=== PATIENT | male | born 1945 | race Caucasian/White ===

== ENCOUNTER 2020-03-24 08:42 | Outpatient (REF) | payer MEDICARE, SELFPAY ==
[2020-03-24 09:55] LABS: Anion Gap 13 (12-20); Blood Urea Nitrogen 37 mg/dL (9-16); Calcium 8.7 mg/dL (8.4-10.2); Carbon Dioxide 24 mmol/L (22-29); Chloride 108 mmol/L (96-108); Estimated Glomerular Filt Rate 41; Potassium 4.8 mmol/l (3.3-5.1); Sodium 140 mmol/L (135-145)
[2020-03-24 11:07] LABS: Creatinine Urine 50.44 mg/dL; Protein/Creatinine Ratio, Ur 3.33 (<0.2); Total Protein Urine Random 168 mg/dL (<12)
== END 2020-03-24 08:43 | disposition home or self-care (01) ==
LOC: HO.LAB 08:42
PROVIDERS: PCP Internal Medicine; Visit Provider Internal Medicine Hypertension Specialist
DX: E11.22 Type 2 diabetes mellitus with diabetic chronic kidney disease (principal); N18.2 Chronic kidney disease, stage 2 (mild)
CPT/HCPCS: 80051; 82310; 82565; 84156; 84520

== ENCOUNTER 2020-04-05 07:01 | Outpatient (REF) | payer MEDICARE, SELFPAY | END 2020-04-05 07:02 | disposition home or self-care (01) | LOC: HO.LAB 07:01 | PROVIDERS: Visit Provider Internal Medicine | DX: Z20.828 Contact with and (suspected) exposure to other viral communicable diseases (principal) | CPT/HCPCS: C9803; U0003 ==

== ENCOUNTER 2020-04-21 08:06 | Outpatient (REF) | payer MEDICARE, SELFPAY ==
[2020-04-21 09:25] LABS: Cholesterol 171 mg/dL; Glucose Fasting 102 mg/dL (60-99); HDL Cholesterol 24 mg/dL; LDL Cholesterol Calculated 102 mg/dl; Triglycerides 226 mg/dL
[2020-04-21 10:24] LABS: Estimated Average Glucose 126 mg/dL
== END 2020-04-21 08:07 | disposition home or self-care (01) ==
LOC: HO.LAB 08:06
PROVIDERS: PCP Internal Medicine; Visit Provider Internal Medicine
DX: E11.9 Type 2 diabetes mellitus without complications (principal)
CPT/HCPCS: 80061; 82947; 83036

== ENCOUNTER 2020-04-25 14:49 | Outpatient (REF) | payer MEDICARE, SELFPAY | END 2020-04-25 14:50 | disposition home or self-care (01) | LOC: HO.LAB 14:49 | PROVIDERS: PCP Internal Medicine; Visit Provider Internal Medicine | DX: Z20.828 Contact with and (suspected) exposure to other viral communicable diseases (principal) | CPT/HCPCS: C9803; U0003 ==

== ENCOUNTER 2020-05-31 09:26 | Outpatient (REF) | payer MEDICARE, SELFPAY ==
[2020-05-31 11:15] LABS: Alanine Aminotransferase 12 U/L (0-40); Anion Gap 14 (12-20); Aspartate Amino Transferase 16 U/L (5-37); Blood Urea Nitrogen 51 mg/dL (9-16); Calcium 9.1 mg/dL (8.4-10.2); Carbon Dioxide 23 mmol/L (22-29); Chloride 108 mmol/L (96-108); Estimated Glomerular Filt Rate 38; Potassium 4.9 mmol/l (3.3-5.1); Rheumatoid Factor < 15.0 IU/mL (<15.0); Sodium 140 mmol/L (135-145)
[2020-05-31 11:55] LABS: Protein/Creatinine Ratio, Ur 3.49 (<0.2); Total Protein Urine Random 201 mg/dL (<12)
[2020-06-01 09:19] LABS: HBS Num1 0.92 mIU/mL (0-7.99); HBsAGNum1 0.22 S/CO (0.00-0.99); Hepatitis B Surface Antigen Negative (Negative); ~HepC Num1 0.11 S/CO (0.00-0.79); ~Hepatitis B Surface Antibody NONREACTIVE (Nonreactive); ~Hepatitis C Antibody Nonreactive (Nonreactive)
[2020-06-01 11:57] LABS: IgA 334 mg/dL (70-320); IgG 1163 mg/dL (600-1540); IgM 123 mg/dL (50-300)
[2020-06-01 13:28] LABS: Anti DNA DS Antibody 3 IU/mL; Anti Glomerular Basement Memb <1.0 AI; Complement C3 128 mg/dL (82-185)
[2020-06-01 15:02] LABS: Neutrophil Cyto Ab Screen NEGATIVE (NEGATIVE)
[2020-06-01 18:11] LABS: IgA 337 mg/dL (70-320); IgG 1243 mg/dL (600-1540); IgM 123 mg/dL (50-300)
== END 2020-05-31 09:27 | disposition home or self-care (01) ==
LOC: HO.LAB 09:26
PROVIDERS: PCP Internal Medicine; Visit Provider Internal Medicine Hypertension Specialist
DX: E11.22 Type 2 diabetes mellitus with diabetic chronic kidney disease (principal); N18.30 Chronic kidney disease, stage 3 unspecified; Z79.899 Other long term (current) drug therapy
CPT/HCPCS: 36415; 80051; 82310; 82565; 82784; 83520; 84156; 84450; 84460; 84520; 86021; 86160; 86225; 86334; 86335; 86431; 86706; 86803; 87340

== ENCOUNTER 2020-07-16 16:01 | Emergency (ER) | payer MEDICARE, SELFPAY ==
[2020-07-16] VITALS (10 sets, daily range): BP systolic 100–145; BP diastolic 48–72; PULSE 70–120; RESP 18–27; TEMP 37.2–39.3; O2SAT 96–98; BMI 28.5
--- NOTE | ~2020-07-16 | XR_ITS ---
EXAMINATION: XR CHEST CLINICAL INFORMATION: Fever COMPARISON: 09/27/2011 TECHNIQUE: Frontal view of the chest was obtained. FINDINGS: No significant abnormality is noted involving the heart, lungs, mediastinum, bony thorax or soft tissues. Heart size remains at the upper limits of normal. XR/XR chest 1V IMPRESSION: No acute intrathoracic disease
--- NOTE | 2020-07-16 16:20 | PC.NURSE ---
on arrival pt noted to have fever, he states he has an infected tooth and states he has an appointment to have it removed. denies cough, denies nausea or vomiting.
--- NOTE | 2020-07-16 16:26 | ED.DIZZY ---
HPI - Dizziness General Chief Complaint: Syncope Stated Complaint: dyzness Time Seen by Provider: 07/16/20 16:26 Source: patient Mode of arrival: ambulatory Limitations: no limitations History of Present Illness HPI Narrative: Patient history of hypertension diabetes off and on dizziness in the past comes here for sudden onset of dizziness just prior to arrival patient was lying on the cot stood up felt dizzy sat down no loss of consciousness lasted only for few seconds on arrival patient noticed to have temperature of 102.7 degrees rectally patient denied any chills or cough as the lower right premolar tenderness in the jaw area with slight swelling patient denies any headache no chest pain no palpitation no nausea no vomiting at this time patient is feeling better no dizziness at this time no focal weakness MD elicited complaint: dizziness Onset (ago): hour(s) Timing: sudden onset Severity: mild Description: sense of movement History of similar symptoms: Yes Exacerbating factors: change in body position Relieving factors: nothing Associated symptoms: fever Related Data Home Medications Medication Instructions Recorded Confirmed aspirin 81 mg tablet,delayed 81 mg PO DAILY 06/08/20 06/08/20 release carvedilol 6.25 mg tablet 6.25 mg PO BID 06/08/20 06/08/20 Previous Rx's Medication Instructions Recorded metformin 500 mg tablet 500 mg PO BID #180 tab 04/20/20 amoxicillin-pot clavulanate 1 tab PO BID #20 tab 07/16/20 [Augmentin] Allergies Allergy/AdvReac Type Severity Reaction Status Date / Time No Known Allergies Allergy Mild NONE Verified 06/08/20 08:31 Review of Systems Review of Systems: Constitutional : No Weight loss, + Fever, No Chills ENT/Mouth : No sore throat, No Rhinorrhea Eyes: No Eye Pain, No Swelling Cardiovascular : No Chest Pain, no palpitations Respiratory : No Cough, No Sputum, no shortness of breath Gastrointestinal : no Nausea, No Vomiting, No Diarrhea, No abdominal Pain, no black stools Genitourinary : No Dysuria, No Urinary Frequency Musculoskeletal : No joint pain, No Myalgias, No Joint Swelling Skin : No Skin Lesions, No rash Neuro : No Weakness, No Numbness, + Dizziness, No Headache Psych : No Anxiety/Panic, No Depression Heme/Lymph: No Bruising, No Lymphadenopathy Endocrine : No Polyuria, No Polydipsia All other systems reviewed and are negative [facility] Past Medical History Medical History Diabetes mellitus Surgical History History of coronary artery stent placement History of drainage of abscess Family History Family History Father Lung cancer Mother Cancer Social History Social History Alcohol intake: current Alcohol intake frequency: holidays/special occasions only Smoking Status: Former smoker Advance Directives: No Advance Directives Information Provided: Yes Physical Exam Vital Signs: Vital Signs: Last Vital Signs Temp 98.9 F 07/16/20 18:36 Pulse 82 07/16/20 19:38 Resp 22 H 07/16/20 18:36 BP 136/65 07/16/20 19:38 Pulse Ox 96 07/16/20 16:39 Body Mass Index 28.5 Appearance: Alert. Oriented X3. No acute distress. Eyes: Pupils equal, round and reactive to light. ENT: Pharynx normal. Slight lower gum swelling at the location of right lower premolar edentulous no fluctuance no sinus tenderness Neck: Normal inspection. Neck supple. No lymphadenopathy no carotid bruit CVS: Normal heart rate and rhythm. Pulses normal. Respiratory: No respiratory distress. Breath sounds normal. Abdomen: Soft and nontender. Bowel sounds are present, no mass palpable, no CVA tenderness Skin: Skin warm and dry. Normal skin color. Normal skin turgor. Extremities: No lower extremity edema. No calf tenderness Neuro: Oriented X 3. No motor deficit. No sensory deficit. No nystagmus no cerebellar sign Course Reevaluation(s) Reevaluation #1: Patient afebrile now repeat orthostatics normal ambulatory in the ER feeling much better will discharge patient home on Augmentin Time: 19:37 MDM - Dizziness MDM Narrative Medical decision making narrative: Case discussed with patient daughter according to her he was not feeling good since morning and later on when he stood up from the couch he felt lightheaded and fell/sat down onto the couch. Workup is negative for any sepsis source of infection seems to be only right lower jaw. Will give him Zosyn and discharge him on Augmentin after ambulating Medical Records Attestation: I reviewed the patient's medical records. Lab Data Attestation: I reviewed the patient's lab results. Result diagrams: 07/16/20 16:53 07/16/20 16:53 Labs: Lab Results 07/16/20 07/16/20 07/16/20 Range/Units 16:53 16:53 16:53 WBC 9.1 (4.8-10.8) X10*3/uL RBC 4.37 L (4.60-5.80) X10*6/uL Hgb 11.6 L (14.0-18.0) g/dl Hct 36.0 L (42-52) % MCV 82.4 (80-98) fL MCH 26.5 L (27.0-33.0) pg MCHC 32.2 (31.0-36.0) g/dl RDW 14.3 (11.0-16.0) % Plt Count 152 L (160-400) X10*3/uL MPV 9.9 (9.4-12.4) fL Immature Gran % (Auto) 0.3 (0.0-0.4) % Neut % (Auto) 86.1 H (45-73) % Lymph % (Auto) 6.1 L (20-40) % Dickson % (Auto) 7.2 (2-11) % Eos % (Auto) 0.1 (0-4) % Baso % (Auto) 0.2 (0-2) % Lymph # (Auto) 0.6 L (1.2-4.9) X10*3/uL Dickson # (Auto) 0.7 (0.1-1.2) X10*3/uL Eos # (Auto) 0.0 (0.0-0.4) X10*3/uL Baso # (Auto) 0.0 (0.0-0.2) X10*3/uL Abs Immat Gran (auto) 0.03 (0.00-0.03) X10*3/uL Absolute Neuts (auto) 7.9 (2.0-8.3) X10*3/uL Absolute Nucleated RBC 0.000 (0.0-0.012) X10*3/uL Nucleated RBC % (auto) 0.0 (0.0-0.2) /100WBC Smear Tech's Comments VERIFIED PT (10.8-13.0) SEC INR (0.9-1.1) APTT (24.1-38.0) SEC Sodium 140 (135-145) mmol/L Potassium 4.5 (3.3-5.1) mmol/L Chloride 110 H (96-108) mmol/L Carbon Dioxide 20 L (22-29) mmol/L Anion Gap 15 (12-20) BUN 41 H (9-16) mg/dL Creatinine 2.04 H (0.5-1.4) mg/dL Estim Creat Clear Calc 31.6 Estimated GFR 32 Random Glucose 127 H (60-115) mg/dL Lactic Acid 1.0 (0.5-2.0) mmol/L Calcium 8.4 D (8.4-10.2) mg/dL Total Bilirubin 0.8 (0.0-1.0) mg/dL Direct Bilirubin 0.3 (0.0-0.5) mg/dL AST 15 (5-37) U/L ALT 10 (0-40) U/L Alkaline Phosphatase 84 (39-117) U/L Troponin I High Sens (<3.5-35.0) ng/L Total Protein 6.8 (6.5-8.0) g/dL Albumin 3.7 (3.5-5.0) g/dL Urine Color Urine Appearance Urine pH (5.0-8.0) Ur Specific [place] (1.005-1.025) Urine Protein (NEG-TRACE) MG/DL Urine Glucose (UA) (NEG) MG/DL Urine Ketones (NEG) MG/DL Urine Blood (NEG) Urine Nitrite (NEG) Ur Leukocyte Esterase (NEG) Urine RBC (0) /HPF Urine WBC (0-4) /HPF Ur Squamous Epith Cells /LPF Urine Bacteria /LPF Hyaline Casts /LPF Granular Casts /LPF Urine Mucus /LPF COVID-19 (ANDI) (Negative) COVID-19 Clin Com 07/16/20 07/16/20 07/16/20 Range/Units 16:53 16:53 16:53 WBC (4.8-10.8) X10*3/uL RBC (4.60-5.80) X10*6/uL Hgb (14.0-18.0) g/dl Hct (42-52) % MCV (80-98) fL MCH (27.0-33.0) pg MCHC (31.0-36.0) g/dl RDW (11.0-16.0) % Plt Count (160-400) X10*3/uL MPV (9.4-12.4) fL Immature Gran % (Auto) (0.0-0.4) % Neut % (Auto) (45-73) % Lymph % (Auto) (20-40) % Dickson % (Auto) (2-11) % Eos % (Auto) (0-4) % Baso % (Auto) (0-2) % Lymph # (Auto) (1.2-4.9) X10*3/uL Dickson # (Auto) (0.1-1.2) X10*3/uL Eos # (Auto) (0.0-0.4) X10*3/uL Baso # (Auto) (0.0-0.2) X10*3/uL Abs Immat Gran (auto) (0.00-0.03) X10*3/uL Absolute Neuts (auto) (2.0-8.3) X10*3/uL Absolute Nucleated RBC (0.0-0.012) X10*3/uL Nucleated RBC % (auto) (0.0-0.2) /100WBC Smear Tech's Comments PT 13.2 H (10.8-13.0) SEC INR 1.1 (0.9-1.1) APTT 31.1 (24.1-38.0) SEC Sodium (135-145) mmol/L Potassium (3.3-5.1) mmol/L Chloride (96-108) mmol/L Carbon Dioxide (22-29) mmol/L Anion Gap (12-20) BUN (9-16) mg/dL Creatinine (0.5-1.4) mg/dL Estim Creat Clear Calc Estimated GFR Random Glucose (60-115) mg/dL Lactic Acid (0.5-2.0) mmol/L Calcium (8.4-10.2) mg/dL Total Bilirubin (0.0-1.0) mg/dL Direct Bilirubin (0.0-0.5) mg/dL AST (5-37) U/L ALT (0-40) U/L Alkaline Phosphatase (39-117) U/L Troponin I High Sens 39.8 H (<3.5-35.0) ng/L Total Protein (6.5-8.0) g/dL Albumin (3.5-5.0) g/dL Urine Color Urine Appearance Urine pH (5.0-8.0) Ur Specific [place] (1.005-1.025) Urine Protein (NEG-TRACE) MG/DL Urine Glucose (UA) (NEG) MG/DL Urine Ketones (NEG) MG/DL Urine Blood (NEG) Urine Nitrite (NEG) Ur Leukocyte Esterase (NEG) Urine RBC (0) /HPF Urine WBC (0-4) /HPF Ur Squamous Epith Cells /LPF Urine Bacteria /LPF Hyaline Casts /LPF Granular Casts /LPF Urine Mucus /LPF COVID-19 (ANDI) Negative (Negative) COVID-19 Clin Com See Note 07/16/20 Range/Units 18:35 WBC (4.8-10.8) X10*3/uL RBC (4.60-5.80) X10*6/uL Hgb (14.0-18.0) g/dl Hct (42-52) % MCV (80-98) fL MCH (27.0-33.0) pg MCHC (31.0-36.0) g/dl RDW (11.0-16.0) % Plt Count (160-400) X10*3/uL MPV (9.4-12.4) fL Immature Gran % (Auto) (0.0-0.4) % Neut % (Auto) (45-73) % Lymph % (Auto) (20-40) % Dickson % (Auto) (2-11) % Eos % (Auto) (0-4) % Baso % (Auto) (0-2) % Lymph # (Auto) (1.2-4.9) X10*3/uL Dickson # (Auto) (0.1-1.2) X10*3/uL Eos # (Auto) (0.0-0.4) X10*3/uL Baso # (Auto) (0.0-0.2) X10*3/uL Abs Immat Gran (auto) (0.00-0.03) X10*3/uL Absolute Neuts (auto) (2.0-8.3) X10*3/uL Absolute Nucleated RBC (0.0-0.012) X10*3/uL Nucleated RBC % (auto) (0.0-0.2) /100WBC Smear Tech's Comments PT (10.8-13.0) SEC INR (0.9-1.1) APTT (24.1-38.0) SEC Sodium (135-145) mmol/L Potassium (3.3-5.1) mmol/L Chloride (96-108) mmol/L Carbon Dioxide (22-29) mmol/L Anion Gap (12-20) BUN (9-16) mg/dL Creatinine (0.5-1.4) mg/dL Estim Creat Clear Calc Estimated GFR Random Glucose (60-115) mg/dL Lactic Acid (0.5-2.0) mmol/L Calcium (8.4-10.2) mg/dL Total Bilirubin (0.0-1.0) mg/dL Direct Bilirubin (0.0-0.5) mg/dL AST (5-37) U/L ALT (0-40) U/L Alkaline Phosphatase (39-117) U/L Troponin I High Sens (<3.5-35.0) ng/L Total Protein (6.5-8.0) g/dL Albumin (3.5-5.0) g/dL Urine Color YELLOW Urine Appearance CLEAR Urine pH 5.5 (5.0-8.0) Ur Specific [place] 1.025 (1.005-1.025) Urine Protein 2+ H (NEG-TRACE) MG/DL Urine Glucose (UA) NEG (NEG) MG/DL Urine Ketones NEG (NEG) MG/DL Urine Blood TRACE (NEG) Urine Nitrite NEG (NEG) Ur Leukocyte Esterase NEG (NEG) Urine RBC 0-2 (0) /HPF Urine WBC 1-4 (0-4) /HPF Ur Squamous Epith Cells 1+ /LPF Urine Bacteria TRACE /LPF Hyaline Casts 0-2 /LPF Granular Casts 1-4 /LPF Urine Mucus TRACE /LPF COVID-19 (ANDI) (Negative) COVID-19 Clin Com ECG Data Attestation: I personally reviewed and interpreted this ECG as follows: Interpretation: Normal sinus rhythm heart rate 96 beats per minute occasional unifocal PVCs left axis deviation nonspecific T-wave changes normal intervals impression no acute ischemia Discharge Plan Discharge Clinical Impression: Abscess, dental, Weakness Patient Disposition: Home, Self-Care Instructions: Dental Abscess (ED) Additional Instructions: Take antibiotics as advised , drink plenty of fluids Follow up with dentist Report to the ER if not feeling good Prescriptions: New amoxicillin-pot clavulanate [Augmentin] 875-125 mg tablet 1 tab PO BID Qty: 20 RF: 0 No Action metformin 500 mg tablet 500 mg PO BID Qty: 180 RF: 8 carvedilol 6.25 mg tablet 6.25 mg PO BID RF: 0 aspirin [Adult Low Dose Aspirin] 81 mg tablet,delayed release (DR/EC) 81 mg PO DAILY RF: 0
--- NOTE | 2020-07-16 16:49 | ECG_ITS ---
Test Reason : SYNCOPE Blood Pressure : / mmHG Vent. Rate : 096 BPM Atrial Rate : 096 BPM P-R Int : 240 ms QRS Dur : 106 ms QT Int : 356 ms P-R-T Axes : 021 -40 089 degrees QTc Int : 449 ms Sinus rhythm with 1st degree A-V block with occasional Premature ventricular complexes Left axis deviation T wave abnormality, consider lateral ischemia Abnormal ECG When compared with ECG of 04-JAN-2015 12:32, Premature ventricular complexes are now Present Vent. rate has increased BY 61 BPM QT has lengthened Referred By: Ke Trotter Electronically Signed By:MACKENZIE MICHAEL
[2020-07-16 17:02] LABS: Basophils Percent Auto 0.2 % (0-2); Eosinophils Percent Auto 0.1 % (0-4); Hemoglobin 11.6 g/dl (14.0-18.0); Imm Gran Abs Auto 0.03 X10*3/uL (0.00-0.03); Imm Gran Pct Auto 0.3 % (0.0-0.4); Lymphocytes Absolute Auto 0.6 X10*3/uL (1.2-4.9); Lymphocytes Percent Auto 6.1 % (20-40); MANUAL DIFF FLAG SCAN; Mean Corpuscular HGB Conc 32.2 g/dl (31.0-36.0); Mean Corpuscular Hemoglobin 26.5 pg (27.0-33.0); Mean Corpuscular Volume 82.4 fL (80-98); Mean Platelet Volume 9.9 fL (9.4-12.4); Monocytes Absolute Auto 0.7 X10*3/uL (0.1-1.2); Monocytes Percent Auto 7.2 % (2-11); Neutrophils Absolute Auto 7.9 X10*3/uL (2.0-8.3); Neutrophils Percent Auto 86.1 % (45-73); Platelet Count 152 X10*3/uL (160-400); Red Blood Count 4.37 X10*6/uL (4.60-5.80); Red Cell Distribution Width 14.3 % (11.0-16.0); SCAN SMEAR FLAG 1; White Blood Count 9.1 X10*3/uL (4.8-10.8)
[2020-07-16 17:11] LABS: INTERNATIONAL NORM RATIO 1.1 (0.9-1.1); Prothrombin Time 13.2 SEC (10.8-13.0)
[2020-07-16] MEDS: 0.9 % Sodium Chloride 1,000 ML 999 ML IVCONT (17:11)
[2020-07-16 17:14] LABS: Partial Thromboplastin Time 31.1 SEC (24.1-38.0)
[2020-07-16 17:19] LABS: COVID-19 Test Negative (Negative); IDNOW Serial# 9DD0AD1C
[2020-07-16] MEDS: Acetaminophen 325 MG TABLET 650 MG PO (17:23)
[2020-07-16 17:24] LABS: Alanine Aminotransferase 10 U/L (0-40); Albumin Level 3.7 g/dL (3.5-5.0); Alkaline Phosphatase 84 U/L (39-117); Anion Gap 15 (12-20); Aspartate Amino Transferase 15 U/L (5-37); Bilirubin Direct 0.3 mg/dL (0.0-0.5); Bilirubin Total 0.8 mg/dL (0.0-1.0); Blood Urea Nitrogen 41 mg/dL (9-16); Calcium 8.4 mg/dL (8.4-10.2); Carbon Dioxide 20 mmol/L (22-29); Chloride 110 mmol/L (96-108); Creatinine Clr Calc Pharmacy 31.6; Estimated Glomerular Filt Rate 32; Glucose Random 127 mg/dL (60-115); Potassium 4.5 mmol/L (3.3-5.1); SLIDE REVIEW VERIFIED; Sodium 140 mmol/L (135-145); Total Protein 6.8 g/dL (6.5-8.0)
[2020-07-16 17:32] LABS: Troponin-I High Sensitivity 39.8 ng/L (<3.5-35.0)
[2020-07-16 18:45] LABS: Appearance Urine CLEAR; Color Urine YELLOW; Glucose Urine UA NEG (NEG); Leukocyte Esterase Urine NEG (NEG); Nitrite Urine NEG (NEG); PH 5.5 (5.0-8.0); Specific Gravity - Urine 1.025 (1.005-1.025); Urine Blood TRACE (NEG); Urine Ketones NEG (NEG); Urine Protein 2+ MG/DL (NEG-TRACE)
[2020-07-16 19:08] LABS: UACC CULT YES
[2020-07-16 19:09] LABS: Bacteria Urine TRACE /LPF; Hyaline Casts Urine 0-2 /LPF; Mucus Urine TRACE /LPF; RBC Urine 0-2 /HPF (0); Squamous Epithelial Cell Urine 1+ /LPF
[2020-07-16] MEDS: Piperacillin Sodium/Tazobactam 3.375 GM in 0.9 % Sodium Chloride 50 ML IV (19:58)
== END 2020-07-16 20:43 | disposition home or self-care (01) ==
PROVIDERS: Emergency Provider Internal Medicine; PCP Internal Medicine
DX: K04.7 Periapical abscess without sinus (principal); R53.1 Weakness; Z20.822 Contact with and (suspected) exposure to COVID-19; E11.9 Type 2 diabetes mellitus without complications
CPT/HCPCS: 36415; 71045; 80048; 80076; 81001; 83605; 84484; 85025; 85610; 85730; 87040; 87086; 87635; 93005; 96361; 96365; 99284; J2543

== ENCOUNTER 2020-08-09 08:14 | Outpatient (REF) | payer MEDICARE, SELFPAY ==
[2020-08-09 09:57] LABS: Estimated Average Glucose 108 mg/dL; Hemoglobin A1c % 5.4 %
[2020-08-09 10:09] LABS: Cholesterol 196 mg/dL; HDL Cholesterol 36 mg/dL; LDL Cholesterol Calculated 125 mg/dl; Triglycerides 176 mg/dL
== END 2020-08-09 08:15 | disposition home or self-care (01) ==
LOC: HO.LAB 08:14
PROVIDERS: PCP Internal Medicine; Visit Provider Internal Medicine
DX: E11.9 Type 2 diabetes mellitus without complications (principal)
CPT/HCPCS: 36415; 80061; 83036

== ENCOUNTER 2021-04-04 10:02 | Outpatient (REF) | payer MEDICARE, SELFPAY ==
[2021-04-04 10:46] LABS: Estimated Average Glucose 114 mg/dL; Hemoglobin A1C 117.1894 umol/L; Hemoglobin A1c % 5.6 %
[2021-04-04 10:59] LABS: Alanine Aminotransferase 13 U/L (0-40); Alkaline Phosphatase 80 U/L (39-117); Anion Gap 13 (12-20); Aspartate Amino Transferase 18 U/L (5-37); Bilirubin Total 0.7 mg/dL (0.0-1.0); Blood Urea Nitrogen 43 mg/dL (9-16); Calcium 9.8 mg/dL (8.4-10.2); Carbon Dioxide 24 mmol/L (22-29); Chloride 110 mmol/L (96-108); Estimated Glomerular Filt Rate 25; Glucose Random 96 mg/dL (60-115); Potassium 5.6 mmol/L (3.3-5.1); Sodium 141 mmol/L (135-145); Total Protein 7.2 g/dL (6.5-8.0)
[2021-04-04 11:20] LABS: Prostate Specific Antigen 1.63 ng/mL (<0.05-4.0)
== END 2021-04-04 10:03 | disposition home or self-care (01) ==
LOC: HO.LAB 10:02
PROVIDERS: PCP Internal Medicine; Visit Provider Nurse Practitioner Family
DX: Z12.5 Encounter for screening for malignant neoplasm of prostate (principal); E11.9 Type 2 diabetes mellitus without complications; I10 Essential (primary) hypertension
CPT/HCPCS: 36415; 80053; 83036; 84153

== ENCOUNTER 2021-06-28 08:33 | Outpatient (REF) | payer MEDICARE, SELFPAY ==
[2021-06-28 08:52] LABS: MANUAL DIFF FLAG NO
[2021-06-28 09:09] LABS: Basophils Percent Auto 0.6 % (0-2); Eosinophils Absolute Auto 0.3 X10*3/uL (0.0-0.4); Eosinophils Percent Auto 3.9 % (0-4); Hematocrit 36.5 % (42.0-52.0); Hemoglobin 11.5 g/dl (14.0-18.0); Imm Gran Abs Auto 0.03 X10*3/uL (0.00-0.03); Imm Gran Pct Auto 0.4 % (0.0-0.4); Lymphocytes Absolute Auto 2.2 X10*3/uL (1.2-4.9); Lymphocytes Percent Auto 31.9 % (20-40); Mean Corpuscular HGB Conc 31.5 g/dl (31.0-36.0); Mean Corpuscular Volume 85.7 fL (80.0-98.0); Mean Platelet Volume 9.3 fL (9.4-12.4); Monocytes Absolute Auto 0.6 X10*3/uL (0.1-1.2); Monocytes Percent Auto 8.6 % (2-11); Neutrophils Absolute Auto 3.7 x10*3/uL (2.0-8.3); Neutrophils Percent Auto 54.6 % (45-73); Platelet Count 161 X10*3/uL (160-400); Red Blood Count 4.26 X10*6/uL (4.60-5.80); Red Cell Distribution Width 13.5 % (11.0-16.0); White Blood Count 6.8 X10*3/uL (4.8-10.8)
[2021-06-28 09:24] LABS: Estimated Average Glucose 114 mg/dL; Hemoglobin A1c % 5.6 %
[2021-06-28 09:49] LABS: Alanine Aminotransferase 11 U/L (0-40); Albumin Level 3.8 g/dL (3.5-5.0); Alkaline Phosphatase 78 U/L (39-117); Anion Gap 13 (12-20); Aspartate Amino Transferase 17 U/L (5-37); Bilirubin Total 0.6 mg/dL (0.0-1.0); Blood Urea Nitrogen 53 mg/dL (9-16); Calcium 9.3 mg/dL (8.4-10.2); Carbon Dioxide 24 mmol/L (22-29); Chloride 108 mmol/L (96-108); Cholesterol 244 mg/dL; Estimated Glomerular Filt Rate 23; Glucose Fasting 97 mg/dL (60-99); HDL Cholesterol 36 mg/dL; LDL Cholesterol Calculated 164 mg/dl; Potassium 5.1 mmol/L (3.3-5.1); Sodium 140 mmol/L (135-145); Total Protein 6.9 g/dL (6.5-8.0); Triglycerides 220 mg/dL
[2021-06-28 11:18] LABS: Creatinine Urine 50.62 mg/dL
== END 2021-06-28 08:34 | disposition home or self-care (01) ==
LOC: HO.LAB 08:33
PROVIDERS: PCP Internal Medicine; Visit Provider Internal Medicine
DX: Z00.00 Encounter for general adult medical examination without abnormal findings (principal); E11.9 Type 2 diabetes mellitus without complications
CPT/HCPCS: 36415; 80053; 80061; 82043; 83036; 85025

== ENCOUNTER 2021-09-20 08:27 | Outpatient (REF) | payer MEDICARE, SELFPAY ==
[2021-09-20 10:03] LABS: Cholesterol 210 mg/dL; Glucose Fasting 93 mg/dL (60-99); HDL Cholesterol 35 mg/dL; LDL Cholesterol Calculated 142 mg/dl; Triglycerides 166 mg/dL
[2021-09-20 10:11] LABS: Estimated Average Glucose 111 mg/dL; Hemoglobin A1c % 5.5 %
== END 2021-09-20 08:28 | disposition home or self-care (01) ==
LOC: HO.LAB 08:27
PROVIDERS: PCP Internal Medicine; Visit Provider Internal Medicine
DX: Z00.00 Encounter for general adult medical examination without abnormal findings (principal); E11.65 Type 2 diabetes mellitus with hyperglycemia
CPT/HCPCS: 36415; 80061; 82947; 83036

== ENCOUNTER 2021-12-26 08:17 | Outpatient (REF) | payer MEDICARE, SELFPAY ==
[2021-12-26 08:28] LABS: MANUAL DIFF FLAG NO
[2021-12-26 08:43] LABS: Basophils Percent Auto 0.4 % (0-2); Eosinophils Absolute Auto 0.3 X10*3/uL (0.0-0.4); Eosinophils Percent Auto 3.4 % (0-4); Hematocrit 33.8 % (42.0-52.0); Hemoglobin 10.7 g/dl (14.0-18.0); Imm Gran Abs Auto 0.04 X10*3/uL (0.00-0.03); Imm Gran Pct Auto 0.4 % (0.0-0.4); Lymphocytes Percent Auto 21.4 % (20-40); Mean Corpuscular HGB Conc 31.7 g/dl (31.0-36.0); Mean Corpuscular Hemoglobin 27.1 pg (27.0-33.0); Mean Corpuscular Volume 85.6 fL (80.0-98.0); Mean Platelet Volume 9.5 fL (9.4-12.4); Monocytes Absolute Auto 0.6 X10*3/uL (0.1-1.2); Monocytes Percent Auto 6.9 % (2-11); Neutrophils Absolute Auto 6.3 x10*3/uL (2.0-8.3); Neutrophils Percent Auto 67.5 % (45-73); Platelet Count 176 X10*3/uL (160-400); Red Blood Count 3.95 X10*6/uL (4.60-5.80); Red Cell Distribution Width 13.6 % (11.0-16.0); White Blood Count 9.3 X10*3/uL (4.8-10.8)
[2021-12-26 08:53] LABS: Estimated Average Glucose 114 mg/dL; Hemoglobin A1c % 5.6 %
[2021-12-26 09:08] LABS: Alanine Aminotransferase 11 U/L (0-40); Albumin Level 3.8 g/dL (3.5-5.0); Alkaline Phosphatase 89 U/L (39-117); Anion Gap 17 (12-20); Aspartate Amino Transferase 16 U/L (5-37); Bilirubin Total 0.6 mg/dL (0.0-1.0); Blood Urea Nitrogen 61 mg/dL (9-16); Calcium 8.9 mg/dL (8.4-10.2); Carbon Dioxide 19 mmol/L (22-29); Chloride 111 mmol/L (96-108); Cholesterol 203 mg/dL; Estimated Glomerular Filt Rate 18; Glucose Fasting 94 mg/dL (60-99); HDL Cholesterol 39 mg/dL; LDL Cholesterol Calculated 125 mg/dl; Potassium 5.8 mmol/L (3.3-5.1); Sodium 141 mmol/L (135-145); Total Protein 6.8 g/dL (6.5-8.0); Triglycerides 196 mg/dL
== END 2021-12-26 08:18 | disposition home or self-care (01) ==
LOC: HO.LAB 08:17
PROVIDERS: PCP Internal Medicine; Visit Provider Internal Medicine
DX: Z00.00 Encounter for general adult medical examination without abnormal findings (principal); Z13.0 Encounter for screening for diseases of the blood and blood-forming organs and certain disorders involving the immune mechanism; Z13.9 Encounter for screening, unspecified; E11.9 Type 2 diabetes mellitus without complications
CPT/HCPCS: 36415; 80053; 80061; 83036; 85025

== ENCOUNTER → 2022-03-19 08:35 | Outpatient (BNVA) | payer MEDICARE, SELFPAY | PROVIDERS: PCP Internal Medicine; Visit Provider Internal Medicine | DX: D64.9 Anemia, unspecified (principal); I12.9 Hypertensive chronic kidney disease with stage 1 through stage 4 chronic kidney disease, or unspecified chronic kidney disease; N18.9 Chronic kidney disease, unspecified; Z86.010 Personal history of colon polyps | CPT/HCPCS: 99202 ==

== ENCOUNTER 2022-04-02 09:05 | Outpatient (REF) | payer MEDICARE, SELFPAY ==
[2022-04-02 10:25] LABS: Iron 52 mcg/dL (45-160); Percent Iron Saturation 18 % (15-50); Total Iron Binding Capacity 294 mcg/dL (228-428); Unsaturated Iron Binding 242 ug/dL
[2022-04-02 10:36] LABS: Ferritin 144 ng/mL (20-250)
== END 2022-04-02 09:06 | disposition home or self-care (01) ==
LOC: HO.LAB 09:05
PROVIDERS: PCP Internal Medicine; Visit Provider Internal Medicine
DX: D64.9 Anemia, unspecified (principal)
CPT/HCPCS: 36415; 82728; 83540

== ENCOUNTER 2022-04-12 14:24 | Outpatient (REF) | payer MEDICARE, SELFPAY ==
[2022-04-12 15:22] LABS: Anion Gap 11 (12-20); Blood Urea Nitrogen 54 mg/dL (9-16); Carbon Dioxide 22 mmol/L (22-29); Chloride 107 mmol/L (96-108); Estimated Glomerular Filt Rate 17; Glucose Random 113 mg/dL (60-115); Potassium 5.7 mmol/L (3.3-5.1); Sodium 134 mmol/L (135-145)
[2022-04-15 15:39] LABS: Calcium (PTHI) 9.1 mg/dL (8.6-10.3); PTHI 280 pg/mL (16-77)
== END 2022-04-12 14:25 | disposition home or self-care (01) ==
LOC: HO.LAB 14:24
PROVIDERS: PCP Internal Medicine; Visit Provider Internal Medicine Hypertension Specialist
DX: E11.22 Type 2 diabetes mellitus with diabetic chronic kidney disease (principal); N18.4 Chronic kidney disease, stage 4 (severe)
CPT/HCPCS: 36415; 80048; 83970

== ENCOUNTER 2022-07-03 09:48 | Outpatient (REF) | payer MEDICARE, SELFPAY ==
[2022-07-03 11:02] LABS: Estimated Average Glucose 108 mg/dL; Hemoglobin A1c % 5.4 %
[2022-07-03 11:26] LABS: Cholesterol 192 mg/dL; Glucose Fasting 113 mg/dL (60-99); HDL Cholesterol 31 mg/dL; LDL Cholesterol Calculated 128 mg/dl; Triglycerides 168 mg/dL
== END 2022-07-03 09:49 | disposition home or self-care (01) ==
LOC: HO.LAB 09:48
PROVIDERS: PCP Internal Medicine; Visit Provider Internal Medicine
DX: E78.5 Hyperlipidemia, unspecified (principal); E11.65 Type 2 diabetes mellitus with hyperglycemia
CPT/HCPCS: 36415; 80061; 82947; 83036

== ENCOUNTER 2022-11-09 07:52 | Outpatient (REF) | payer MEDICARE, SELFPAY ==
[2022-11-09 08:27] LABS: Estimated Average Glucose 94 mg/dL; Hemoglobin A1c % 4.9 %
[2022-11-09 09:32] LABS: Alanine Aminotransferase 11 U/L (0-40); Albumin Level 3.6 g/dL (3.5-5.0); Alkaline Phosphatase 90 U/L (39-117); Anion Gap 15 (12-20); Aspartate Amino Transferase 15 U/L (5-37); Bilirubin Total 0.6 mg/dL (0.0-1.0); Blood Urea Nitrogen 76 mg/dL (9-16); Calcium 9.6 mg/dL (8.4-10.2); Carbon Dioxide 19 mmol/L (22-29); Chloride 112 mmol/L (96-108); Cholesterol 174 mg/dL; Estimated Glomerular Filt Rate 13; Glucose Fasting 85 mg/dL (60-99); HDL Cholesterol 31 mg/dL; LDL Cholesterol Calculated 118 mg/dl; Potassium 5.6 mmol/L (3.3-5.1); Sodium 140 mmol/L (135-145); Total Protein 6.8 g/dL (6.5-8.0); Triglycerides 127 mg/dL
== END 2022-11-09 07:53 | disposition home or self-care (01) ==
LOC: HO.LAB 07:52
PROVIDERS: PCP Internal Medicine; Visit Provider Internal Medicine
DX: R73.9 Hyperglycemia, unspecified (principal); N28.9 Disorder of kidney and ureter, unspecified; E78.5 Hyperlipidemia, unspecified
CPT/HCPCS: 36415; 80053; 80061; 83036

== ENCOUNTER 2022-12-25 14:57 | Outpatient (REF) | payer MEDICARE, SELFPAY ==
--- NOTE | ~2022-12-25 | US_ITS ---
EXAMINATION: US RETROPERITONEAL LIMITED (RENAL ONLY) CLINICAL INFORMATION: Chronic kidney disease. COMPARISON: Renal ultrasound 01/06/2020. TECHNIQUE: Real-time imaging of the kidneys. Limited visualization due to bowel gas. FINDINGS: RIGHT KIDNEY: 9.3 x 3.8 x 4.3 cm (SAG x AP x TRV). Diffuse renal cortical thinning. Increased renal echogenicity. Prominent right renal pyramids. No obstructing renal calculi. A 2.0 x 1.3 x 1.4 cm lower pole cyst, Bosniak I. There is no indication for followup imaging. LEFT KIDNEY: 9.1 x 3.9 x 3.6 cm (SAG x AP x TRV). Diffuse renal cortical thinning. Increased renal echogenicity. No obstructing renal calculi. No hydronephrosis. Lower pole 4.5 x 4.0 x 5.4 cm cyst with small mural calcification, Bosniak II, previously measured 3.6 x 3.7 x 4.3 cm on 01/07/2020. A 1.4 x 1.0 x 0.9 cm lower pole cyst with thin septation and calcification previously measured 0.9 x 0.7 x 0.8 cm, Bosniak II. US/US renal BI IMPRESSION: 1. Bilateral diffuse renal cortical thinning and increased renal echogenicity. 2. Prominent right renal pyramids. No obstructing renal calculi. 3. Multiple bilateral renal cysts including left renal mildly complex Bosniak II cysts as detailed above. Recommend followup ultrasound in 12 months.
== END 2022-12-25 14:58 | disposition home or self-care (01) ==
LOC: HO.US 14:57
PROVIDERS: PCP Internal Medicine; Visit Provider Internal Medicine Hypertension Specialist
DX: N18.4 Chronic kidney disease, stage 4 (severe) (principal)
CPT/HCPCS: 76775

== ENCOUNTER 2023-01-03 14:03 | Outpatient (REF) | payer MEDICARE, SELFPAY ==
[2023-01-03 14:35] LABS: MANUAL DIFF FLAG NO
[2023-01-03 14:50] LABS: Basophils Absolute Auto 0.1 X10*3/uL (0.0-0.2); Basophils Percent Auto 0.8 % (0-2); Eosinophils Absolute Auto 0.3 X10*3/uL (0.0-0.4); Eosinophils Percent Auto 5.2 % (0-4); Hematocrit 30.8 % (42.0-52.0); Hemoglobin 9.7 g/dl (14.0-18.0); Imm Gran Abs Auto 0.03 X10*3/uL (0.00-0.03); Imm Gran Pct Auto 0.5 % (0.0-0.4); Lymphocytes Absolute Auto 1.7 X10*3/uL (1.2-4.9); Lymphocytes Percent Auto 26.9 % (20-40); Mean Corpuscular HGB Conc 31.5 g/dl (31.0-36.0); Mean Corpuscular Hemoglobin 27.5 pg (27.0-33.0); Mean Corpuscular Volume 87.3 fL (80.0-98.0); Mean Platelet Volume 9.5 fL (9.4-12.4); Monocytes Absolute Auto 0.5 X10*3/uL (0.1-1.2); Monocytes Percent Auto 8.1 % (2-11); Neutrophils Absolute Auto 3.6 x10*3/uL (2.0-8.3); Neutrophils Percent Auto 58.5 % (45-73); Platelet Count 142 X10*3/uL (160-400); Red Blood Count 3.53 X10*6/uL (4.60-5.80); Red Cell Distribution Width 14.1 % (11.0-16.0); White Blood Count 6.2 X10*3/uL (4.8-10.8)
[2023-01-03 16:21] LABS: Alanine Aminotransferase 14 U/L (0-40); Albumin Level 3.7 g/dL (3.5-5.0); Alkaline Phosphatase 79 U/L (39-117); Anion Gap 13 (12-20); Aspartate Amino Transferase 16 U/L (5-37); Bilirubin Total 0.5 mg/dL (0.0-1.0); Blood Urea Nitrogen 98 mg/dL (9-16); Calcium 9.1 mg/dL (8.4-10.2); Carbon Dioxide 18 mmol/L (22-29); Chloride 114 mmol/L (96-108); Estimated Glomerular Filt Rate 12; Glucose Random 114 mg/dL (60-115); Potassium 6.1 mmol/L (3.3-5.1); Sodium 139 mmol/L (135-145)
[2023-01-03 16:23] LABS: Creatinine Urine 62.15 mg/dL
[2023-01-03 16:40] LABS: Protein/Creatinine Ratio, Ur 6.26 (<0.2); Total Protein Urine Random 389 mg/dL (<12)
[2023-01-04 15:33] LABS: Calcium (PTHI) 8.7 mg/dL (8.6-10.3); PTHI 486 pg/mL (16-77)
[2023-01-08 11:58] LABS: Prot Elec - Albumin 3.6 g/dL (3.8-4.8); Prot Elec - Alpha1 0.3 g/dL (0.2-0.3); Prot Elec - Alpha2 0.7 g/dL (0.5-0.9); Prot Elec - Beta 1 0.4 g/dL (0.4-0.6); Prot Elec - Beta 2 0.4 g/dL (0.2-0.5); Prot Elec - Gamma 0.9 g/dL (0.8-1.7); Prot Elec - Total Protein 6.3 g/dL (6.1-8.1)
== END 2023-01-03 14:04 | disposition home or self-care (01) ==
LOC: HO.LAB 14:03
PROVIDERS: PCP Internal Medicine; Visit Provider Internal Medicine Hypertension Specialist
DX: N18.5 Chronic kidney disease, stage 5 (principal)
CPT/HCPCS: 36415; 80053; 83970; 84156; 84165; 85025

== ENCOUNTER 2023-01-10 11:31 | Outpatient (AMB) | payer MEDICARE, SELFPAY ==
[2023-01-10 11:32] VITALS: BP 148/60; PULSE 52; O2SAT 100; BMI 29.0
--- NOTE | 2023-01-10 11:32 | AM.OFFVISMDC ---
Intake Vital Signs 01/10/23 11:32 Height 5 ft 6 in Weight 180 lb BMI 29.0 BP 148/60 H Blood Pressure Location Lt brachial Position Sitting Pulse 52 Pulse Source Pulse Oximeter Temp Source Skin Pulse Oximetry (%) 100 Oxygen Delivery Method Room Air Intake Visit Reasons: SAWV Intake Note: Patient is here for an Annual Wellness Visit. Garment Manufacturing Supervisor Required: No Allergies No Known Allergies Allergy (Mild, Verified 01/10/23 12:03) NONE Medication List - Last Reconciled 01/10/23 by JU Key amlodipine 5 mg PO DAILY aspirin (Adult Low Dose Aspirin) 81 mg PO DAILY carvedilol 6.25 mg PO BID glipizide ER 5 mg PO DAILY peg 3350-electrolytes 236-22.74-6.74 -5.86 gram (Golytely) 240 mL PO Q10M HPI SAWV HPI Details Patient is a 77-year-old male who presents today for subsequent wellness visit.? Patient of Dr. Estes. Today we discussed patient's need for colon cancer screening, patient was scheduled for colonoscopy 05/2022 although he needed renal optimization prior to colonoscopy, patient is follows by Nephrology now. Up-to-date with immunizations. [place] of care was reviewed with the patient and he was provided with a screening schedule. Patient reports that he has healthcare proxy and MOLST forms at home and he will provide office with a copy, MOLST form is on file although unable to read. ? 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 Screening for colon cancer Screening for prostate cancer Surgical History History of cataract surgery History of colonoscopy History of coronary artery stent placement History of drainage of abscess History of surgery Family History Father Lung cancer Mother Cancer Social History Housing: House Are you a primary acute care physical therapist to a significant other at home: No Do you presently have visiting nurse or other home services: No Alcohol intake: current Alcohol intake frequency: holidays/special occasions only Patient Tobacco Use Status: Former Tobacco user Tobacco use type: Cigarette e-Cigarette/Vaping Use: Never Used Second Hand Smoke Exposure: No service: No Current occupational status: retired Cognitive needs: No Hearing needs: No Vision needs: Yes (glasses) Questionnaire Medicare Wellness Checkup [age] What gender do you identify with?: male During the past 4 weeks, how much have you been bothered by emotional problems such as feeling anxious, depressed, irritable, sad or downhearted, and blue?: not at all During the past 4 weeks, has your physical & emotional health limited your social activities with family, friends, neighbors, or groups?: not at all During the past 4 weeks, how much bodily pain have you generally had?: mild pain (right pinky finger ) During the past 4 weeks, was someone available to help you if you needed & wanted help?: yes, as much as I wanted During the past 4 weeks, what was the hardest physical activity you could do for at least 2 minutes?: moderate Can you get to places out of walking distance without help? (For eg., can you travel alone on buses, taxis or drive your car?): Yes Can you go shopping for groceries or clothes without someone's help?: Yes Can you prepare your own meals?: Yes Can you do your housework without help?: Yes Because of any health problems, do you need the help of another person with your personal care needs such as eating, bathing, dressing or getting around the house?: No Can you handle your own money without help?: Yes During the past 4 weeks, how would you rate your health in general?: fair During the past 4 weeks how have things been going for you?: good & bad parts about equal Are you having difficulties driving your car?: no Do you always fasten your seat belt when you are in a car?: yes, usually During past 4 weeks, have you been bothered by the following: never: Falling or dizzy when standing up, Sexual problems?, Trouble eating well?, Teeth or denture problems?, Problems using the telephone? and Tiredness or fatigue? Have you fallen 2 or more times in the past year?: No Are you afraid of falling?: No Are you a smoker?: no During the past 4 weeks, how many drinks of wine, beer, or other alcoholic beverages did you have?: no alcohol at all Do you exercise for about 20 minutes 3 or more times a week?: no, I usually do not exercise this much Have you been given information to help with the following?: yes: Hazards in your house that might hurt you? and yes: Keeping track of your medications? How often do you have trouble taking medicines the way you have been told to take them?: I always take medicine as prescribed How confident are you that you can control & manage most of your health problems?: somewhat confident What is your race?: White Mini Mental State Exam (MMSE) Orientation What is the (year) (season) (date) (day) (month)?: year, season, date, day and month Score Score: 5 Activity of Daily Living Bathing - sponge bath, tub bath or shower: receives no assistance (gets in/out by self, if usual bathing means Dressing - getting clothes from closets & drawers, including inner/outer garments & fasteners.: gets clothes & gets completely dressed without help Toileting - going to the 'toilet room' for urine/bowel elimination & cleaning self/arranging clothes: goes to toilet room, cleans self, arranges clothes without help Transfer: moves in & out of bed and chair without help (may use support object) Continence: controls urination/bowel movements completely by self Feeding: feeds self without help Total Score: 0 Information obtained from: patient Using telephone: independent Traveling: independent Shopping: independent Preparing meals: independent Housework: independent Taking medicine: independent Managing money: independent PHQ-9 Over the last 2 weeks, how often have you been bothered by any of the following problems? 1. Little interest or pleasure in doing things: not at all 2. Feeling down, depressed, or hopeless: not at all 3. Trouble falling or staying asleep, or sleeping too much: not at all 4. Feeling tired or having little energy: not at all 5. Poor appetite or overeating: not at all 6. Feeling bad about yourself - or that you are a failure or have let yourself or your family down: not at all 7. Trouble concentrating on things, such as reading the newspaper or watching television: not at all 8. Moving or speaking so slowly that other people could have noticed. Or the opposite - being so fidgety or restless that you have been moving around a lot more than usual: not at all 9. Thoughts that you would be better off or of hurting yourself in some way: not at all Total score: 0 Depression Screening Interpretation: Negative 18580 - PHQ-9 Billing: Yes Source: Developed by Drs. Jerald Perkins, Tracie Oconnor, Jenaro Horn and colleagues, with an educational jennifer from [employer]. Thrive Questionnaire Date Thrive assessed: 07/11/22 I am a: Patient What is your living situation today?: I have a steady place to live Within the past 12 months, did the food you bought not last and you didn't have the money to get more?: Never true Within the past 12 months, did you worry whether your food would run out before you got money to buy more?: Never true Currently or been in a relationship where the following occur: no concerns reported Physical Exam Vital Signs: Last Vital Signs Pulse 52 01/10/23 11:32 BP 148/60 H 01/10/23 11:32 Pulse Ox 100 01/10/23 11:32 Oxygen Delivery Method Room Air 01/10/23 11:32 BMI result Body Mass Index 29.0 Const General: cooperative and no acute distress Orientation/consciousness: patient oriented x3 HEENT Other: Whisper test: fail Neuro Other: Balance: Normal Get up and walk: unable to Romberg: negative Tandem gait: unable to General: patient oriented x3 Assessment & Plan Assessment & Plan (1) Adult general medical exam: Code(s): Z00.00 - Encounter for general adult medical examination without abnormal findings (2) Screening for colon cancer: Code(s): Z12.11 - Encounter for screening for malignant neoplasm of colon (3) Diabetes mellitus with coincident hypertension: Code(s): E11.9 - Type 2 diabetes mellitus without complications; I10 - Essential (primary) hypertension Plan: Continue current treatment. Reinforced low carbohydrate and low sodium diets (4) Chronic renal insufficiency: Code(s): N18.9 - Chronic kidney disease, unspecified Plan: Continue to follow-up with nephrology Dr. Leblanc (5) Hypertension: Code(s): I10 - Essential (primary) hypertension Plan: Continue current treatment Low-sodium diet (6) Diabetes mellitus with renal manifestation: Comment: states he follows w/nephrology Code(s): E11.29 - Type 2 diabetes mellitus with other diabetic kidney complication Plan: Continue current treatment Low-carbohydrate diet Continue to follow-up with nephrology A1c 4.9 11/09/2022 Orders: Referrals Gastroenterology Referral Z12.11 - Encounter for screening for malignant neoplasm of colon Quality Reporting (2019) Depression/Bipolar (159/160/161/177) PHQ-9: Total score: 0 Coding Level of Care Code Medicare Subsequent (G0439) Diagnoses Adult general medical exam Z00.00 Screening for colon cancer Z12.11 Diabetes mellitus with coincident hypertension E11.9; I10 Chronic renal insufficiency N18.9 Hypertension I10 Diabetes mellitus with renal manifestation E11.29 CPT Codes Advance Care Planning - Time spent: 1-15 minutes, not on file ([id number]) Advance Care Planning Advance Care Planning discussion: Exists, not on file Date of discussion: 01/10/23 Who was present: pt and final expense agent Forms completed: None Time spent: 1-15 minutes, not on file Actual minutes spent: 2 Did not discuss due to Cultural/Spiritual beliefs: No
== END 2023-01-10 12:22 | disposition home or self-care (01) ==
PROVIDERS: PCP Internal Medicine; Visit Provider Nurse Practitioner Family
DX: Z00.00 Encounter for general adult medical examination without abnormal findings (principal); I12.9 Hypertensive chronic kidney disease with stage 1 through stage 4 chronic kidney disease, or unspecified chronic kidney disease; E11.22 Type 2 diabetes mellitus with diabetic chronic kidney disease; N18.9 Chronic kidney disease, unspecified; E11.29 Type 2 diabetes mellitus with other diabetic kidney complication
CPT/HCPCS: 1124F; G0439

== ENCOUNTER 2023-01-25 17:12 | Emergency (ER) | payer MEDICARE, SELFPAY ==
--- NOTE | ~2023-01-25 | XR_ITS ---
EXAMINATION: XR WRIST, LEFT CLINICAL INFORMATION: Left wrist swelling/pain. COMPARISON: Radiograph left hand 09/10/2014. TECHNIQUE: Four views of the left wrist. FINDINGS: No acute fractures or subluxation. Carpal rows are maintained. Mild to moderate joint space narrowing of the first carpometacarpal joint as well as triscaphe space. No osseous erosions. Diffuse soft tissue thickening that is more pronounced along the volar surface of the hand/wrist. Sagittal scattered vascular calcifications along the radial and ventral surface of the wrist. XR/XR wrist LT 2V IMPRESSION: 1. No acute fractures or subluxation. 2. 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 3. Nonspecific soft tissue thickening more pronounced along the volar/palmar compartment.
[2023-01-25 18:20] VITALS: BP 191/62; PULSE 52; RESP 16; TEMP 35.9; O2SAT 100; BMI 29.5
[2023-01-25 19:03] LABS: MANUAL DIFF FLAG NO
[2023-01-25 19:05] LABS: Basophils Absolute Auto 0.1 X10*3/uL (0.0-0.2); Basophils Percent Auto 0.6 % (0-2); Eosinophils Absolute Auto 0.2 X10*3/uL (0.0-0.4); Eosinophils Percent Auto 2.8 % (0-4); Hemoglobin 10.1 g/dl (14.0-18.0); Imm Gran Abs Auto 0.02 X10*3/uL (0.00-0.03); Imm Gran Pct Auto 0.3 % (0.0-0.4); Lymphocytes Absolute Auto 1.9 X10*3/uL (1.2-4.9); Lymphocytes Percent Auto 23.3 % (20-40); Mean Corpuscular HGB Conc 31.6 g/dl (31.0-36.0); Mean Corpuscular Hemoglobin 27.4 pg (27.0-33.0); Mean Corpuscular Volume 86.7 fL (80.0-98.0); Mean Platelet Volume 9.2 fL (9.4-12.4); Monocytes Absolute Auto 0.8 X10*3/uL (0.1-1.2); Monocytes Percent Auto 10.4 % (2-11); Neutrophils Percent Auto 62.6 % (45-73); Platelet Count 171 X10*3/uL (160-400); Red Blood Count 3.69 X10*6/uL (4.60-5.80); Red Cell Distribution Width 13.7 % (11.0-16.0)
[2023-01-25 19:24] LABS: Alanine Aminotransferase 8 U/L (0-40); Albumin Level 3.8 g/dL (3.5-5.0); Alkaline Phosphatase 88 U/L (39-117); Anion Gap 17 (12-20); Aspartate Amino Transferase 16 U/L (5-37); Bilirubin Total 0.5 mg/dL (0.0-1.0); Blood Urea Nitrogen 66 mg/dL (9-16); Calcium 9.2 mg/dL (8.4-10.2); Carbon Dioxide 18 mmol/L (22-29); Chloride 111 mmol/L (96-108); Creatinine Clr Calc Pharmacy 13.3; Estimated Glomerular Filt Rate 12; Glucose Random 59 mg/dL (60-115); Potassium 5.6 mmol/L (3.3-5.1); Sodium 140 mmol/L (135-145); Total Protein 7.2 g/dL (6.5-8.0)
--- NOTE | 2023-01-25 19:25 | ED.GENADULT ---
HPI - General Adult General Chief complaint: General Medical Stated complaint: L wrist swelling unable to bend fingers/painful Related Data Home Medications Medication Instructions Recorded Confirmed aspirin 81 mg tablet,delayed 81 mg PO DAILY 06/08/20 01/30/23 release (Adult Low Dose Aspirin) calcitriol 0.25 mcg capsule 0.25 mcg PO DAILY 01/30/23 01/30/23 glipizide 5 mg tablet, extended 5 mg PO DAILY 01/30/23 01/30/23 release 24 hr Previous Rx's Medication Instructions Recorded carvedilol 6.25 mg tablet 6.25 mg PO BID #180 tabs 01/24/22 Allergies Allergy/AdvReac Type Severity Reaction Status Date / Time No Known Allergies Allergy Mild NONE Verified 01/29/23 20:56 PMFSH Past Medical History Medical History CAD (coronary artery disease) Diabetes mellitus with renal manifestation Screening for prostate cancer Screening for colon cancer Diabetes mellitus with coincident hypertension Diabetes mellitus Surgical History History of surgery History of colonoscopy History of cataract surgery History of coronary artery stent placement History of drainage of abscess Family History Family History Father Lung cancer Mother Cancer Social History Social History Housing: House Are you a primary rn progressive care unit to a significant other at home: No Do you presently have visiting nurse or other home services: No Alcohol intake: never Patient Tobacco Use Status: Former Tobacco user Tobacco use type: Cigarette Smoked in Last 30 Days: No e-Cigarette/Vaping Use: Never Used Second Hand Smoke Exposure: No Use of substances other than those prescribed or required for medical reasons: No Advance Directives: No Advance Directives Information Provided: No Nutrition Risks: No Nutritional Risk service: No Current occupational status: retired Cognitive needs: No Hearing needs: No Vision needs: Yes (glasses) Physical Exam ED Vital Signs: Vital Signs - 24 hr 01/25/23 18:20 Temperature 96.6 F L Pulse Rate 52 Respiratory Rate 16 Blood Pressure 191/62 H Pulse Oximetry 100 Oxygen Delivery Method Room Air BMI result Body Mass Index 29.5 Course Course Course Narrative: 19:26 Received call from lab regarding glucose of 59, patient in waiting room, patient provided with food and drink. Medical Decision Making Lab Data 01/25/23 18:59 01/25/23 18:59 Labs: Lab Results 01/25/23 Range/Units 18:59 WBC 8.0 (4.8-10.8) X10*3/uL RBC 3.69 L (4.60-5.80) X10*6/uL Hgb 10.1 L (14.0-18.0) g/dl Hct 32.0 L (42.0-52.0) % MCV 86.7 (80.0-98.0) fL MCH 27.4 (27.0-33.0) pg MCHC 31.6 (31.0-36.0) g/dl RDW 13.7 (11.0-16.0) % Plt Count 171 (160-400) X10*3/uL MPV 9.2 L (9.4-12.4) fL Immature Gran % (Auto) 0.3 (0.0-0.4) % Neut % (Auto) 62.6 (45-73) % Lymph % (Auto) 23.3 (20-40) % [place] % (Auto) 10.4 (2-11) % Eos % (Auto) 2.8 (0-4) % Baso % (Auto) 0.6 (0-2) % Lymph # (Auto) 1.9 (1.2-4.9) X10*3/uL [place] # (Auto) 0.8 (0.1-1.2) X10*3/uL Eos # (Auto) 0.2 (0.0-0.4) X10*3/uL Baso # (Auto) 0.1 (0.0-0.2) X10*3/uL Abs Immat Gran (auto) 0.02 (0.00-0.03) X10*3/uL Absolute Neuts (auto) 5.0 (2.0-8.3) x10*3/uL Absolute Nucleated RBC 0.000 (0.0-0.012) X10*3/uL Nucleated RBC % (auto) 0.0 (0.0-0.2) /100WBC Sodium 140 (135-145) mmol/L Potassium 5.6 H (3.3-5.1) mmol/L Chloride 111 H (96-108) mmol/L Carbon Dioxide 18 L (22-29) mmol/L Anion Gap 17 (12-20) BUN 66 H (9-16) mg/dL Creatinine 4.76 H* (0.5-1.4) mg/dL Estim Creat Clear Calc 13.3 Estimated GFR 12 Random Glucose 59 L* (60-115) mg/dL Calcium 9.2 (8.4-10.2) mg/dL Total Bilirubin 0.5 (0.0-1.0) mg/dL AST 16 (5-37) U/L ALT 8 (0-40) U/L Alkaline Phosphatase 88 (39-117) U/L Total Protein 7.2 (6.5-8.0) g/dL Albumin 3.8 (3.5-5.0) g/dL Discharge Plan Discharge Clinical Impression: Left wrist pain Patient Disposition: Left W/O Completing Treatment Prescriptions: No Action carvedilol 6.25 mg tablet 6.25 mg PO BID Qty: 180 8RF Rx Instructions: must administer with a meal/food glipizide 5 mg tablet extended release 24hr 5 mg PO DAILY calcitriol 0.25 mcg capsule 0.25 mcg PO DAILY aspirin [Adult Low Dose Aspirin] 81 mg tablet,delayed release (DR/EC) 81 mg PO DAILY Interventions: JONBS Worksheet Last Done: 01/25/23 20:32 Discharge Date/Time: 01/25/23 20:53
--- NOTE | 2023-01-25 19:34 | PC.NURSE ---
critical labs called to PIT provider, glucose of 59, pt called back to triage to give orange juice, no answer.
== END 2023-01-25 20:53 | disposition left against medical advice (07) ==
LOC: HO.ED 20:39
PROVIDERS: Emergency Provider Emergency Medicine; PCP Internal Medicine
DX: M25.532 Pain in left wrist (principal); M19.032 Primary osteoarthritis, left wrist; E11.649 Type 2 diabetes mellitus with hypoglycemia without coma; I10 Essential (primary) hypertension; Z87.891 Personal history of nicotine dependence; Z79.82 Long term (current) use of aspirin; Z79.899 Other long term (current) drug therapy
CPT/HCPCS: 36415; 73100; 80053; 85025; 99281; 99283

== ENCOUNTER 2023-01-29 20:47 | Observation (INO) | payer MEDICARE, SELFPAY ==
[2023-01-29 20:56] VITALS: BP 172/94; PULSE 60; O2SAT 98; BMI 29.6
--- NOTE | 2023-01-29 20:56 | ED.GENADULT ---
HPI - General Adult General Chief complaint: General Medical Stated complaint: HYPOGLYCEMIA Time Seen by Provider: 01/29/23 20:48 Source: patient Mode of arrival: EMS Limitations: no limitations History of Present Illness HPI narrative: Patient with history of CKD diabetes on glipizide lately not feeling good and not eating well but still taking his glipizide 5 mg daily just prior to arrival patient was feeling weak and dizzy almost passed out patient's daughter was at bedside, POC was 30 per EMS on arrival, gave him oral glucose and blood sugar improved to 82 on arrival and patient was back to normal no seizures no fall chest pain or palpitation, no fever no chills patient last colonoscopy which was normal Related Data Home Medications Medication Instructions Recorded Confirmed aspirin 81 mg tablet,delayed 81 mg PO DAILY 06/08/20 01/10/23 release (Adult Low Dose Aspirin) amlodipine 5 mg tablet 5 mg PO DAILY 01/10/23 01/10/23 glipizide 5 mg tablet, extended 5 mg PO DAILY 01/10/23 01/10/23 release 24 hr Previous Rx's Medication Instructions Recorded carvedilol 6.25 mg tablet 6.25 mg PO BID #180 tabs 01/24/22 peg 3350-electrolytes 236 240 ml PO Q10M colonoscopy #4,000 03/19/22 gram-22.74 gram-6.74 gram-5.86 mL gram solution (Golytely) Allergies Allergy/AdvReac Type Severity Reaction Status Date / Time No Known Allergies Allergy Mild NONE Verified 01/29/23 20:56 Review of Systems Review of Systems: Yes all other systems are reviewed and are negative PMFSH Past Medical History Medical History CAD (coronary artery disease) Diabetes mellitus with renal manifestation Screening for prostate cancer Screening for colon cancer Diabetes mellitus with coincident hypertension Diabetes mellitus Surgical History History of surgery History of colonoscopy History of cataract surgery History of coronary artery stent placement History of drainage of abscess Family History Family History Father Lung cancer Mother Cancer Social History Social History Housing: House Are you a primary healthcare applications analyst to a significant other at home: No Do you presently have visiting nurse or other home services: No Alcohol intake: never Patient Tobacco Use Status: Former Tobacco user Tobacco use type: Cigarette Smoked in Last 30 Days: No e-Cigarette/Vaping Use: Never Used Second Hand Smoke Exposure: No Use of substances other than those prescribed or required for medical reasons: No Advance Directives: No Advance Directives Information Provided: No service: No Current occupational status: retired Cognitive needs: No Hearing needs: No Vision needs: Yes (glasses) Physical Exam ED Vital Signs: Vital Signs - 24 hr 01/29/23 22:27 01/29/23 23:13 Pulse Rate 57 Respiratory Rate 17 19 Blood Pressure 170/61 H Pulse Oximetry 100 Oxygen Delivery Method Room Air BMI result Body Mass Index 29.6 Appearance: Alert. Oriented X3. No acute distress. Eyes: PERRLA, No Nystagmus ENT: Pharynx normal. Oral Mucosa moist Neck: Normal inspection. Neck supple. CVS: Irregularly regular heart rhythm. Pulses normal. Respiratory: No respiratory distress. Equal air entry bilateral, no wheezing/rales/rhonchi Abdomen: Soft and nontender. Bowel sounds are present, no mass palpable, no CVA tenderness Skin: Skin warm and dry. Normal skin color. Normal skin turgor. Extremities: No lower extremity edema. No calf tenderness Neuro: Oriented X 3. No motor deficit. No sensory deficit.No cerebellar signs , cranial nerves II-XII intact Medications Administered Generic Name Dose Route Start Last Admin Trade Name Freq PRN Reason Stop Dose Admin Insulin Human Lispro 0 unit 01/30/23 01:45 01/30/23 01:38 Insulin Lispro 100 Unit/Ml 3 Ml Vial SUBCUT Not Given Q4H [facility] Protocol Discontinued Medications Generic Name Dose Route Start Last Admin Trade Name Freq PRN Reason Stop Dose Admin Dextrose 25 gm 01/30/23 01:30 01/30/23 01:33 Dextrose 50 % 25 Gm/50 Ml Syringe IVPUSH 01/30/23 01:31 25 gm ONCE ONE Administration Sodium Bicarbonate 50 meq 01/30/23 00:05 01/30/23 00:20 Sodium Bicarbonate 8.4% 50 Meq/50 Ml Syringe IVPUSH 01/30/23 00:06 50 meq ONCE ONE Administration Medical Decision Making Medical Decision Making MDM Narrative: Patient has CKD on oral hypoglycemic with poor oral intake persistent hypoglycemia no source of infection will admit patient for observation 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 Patient was doing better ambulatory UA showed UTI patient's blood sugar dropped to 46 will admit patient for UTI hypoglycemia will give antibiotics Differential Diagnosis Differential Diagnoses: The differential diagnosis associated with the presentation includes Sepsis/UTI/medication induced hypoglycemia/cardiac Consult Healthcare Provider Management of the patient was discussed with: Hospitalist Lab Data [facility] Lab Attestation statement: I reviewed the patient's lab results. 01/29/23 21:28 01/29/23 21:28 Labs: Lab Results 01/29/23 01/29/23 01/29/23 Range/Units 20:54 21:28 22:58 WBC 6.1 (4.8-10.8) X10*3/uL RBC 3.59 L (4.60-5.80) X10*6/uL Hgb 9.7 L (14.0-18.0) g/dl Hct 30.6 L (42.0-52.0) % MCV 85.2 (80.0-98.0) fL MCH 27.0 (27.0-33.0) pg MCHC 31.7 (31.0-36.0) g/dl RDW 13.5 (11.0-16.0) % Plt Count 164 (160-400) X10*3/uL MPV 9.3 L (9.4-12.4) fL Immature Gran % (Auto) 0.3 (0.0-0.4) % Neut % (Auto) 72.9 (45-73) % Lymph % (Auto) 16.7 L (20-40) % [place] % (Auto) 6.3 (2-11) % Eos % (Auto) 3.3 (0-4) % Baso % (Auto) 0.5 (0-2) % Lymph # (Auto) 1.0 L (1.2-4.9) X10*3/uL [place] # (Auto) 0.4 (0.1-1.2) X10*3/uL Eos # (Auto) 0.2 (0.0-0.4) X10*3/uL Baso # (Auto) 0.0 (0.0-0.2) X10*3/uL Abs Immat Gran (auto) 0.02 (0.00-0.03) X10*3/uL Absolute Neuts (auto) 4.4 (2.0-8.3) x10*3/uL Absolute Nucleated RBC 0.000 (0.0-0.012) X10*3/uL Nucleated RBC % (auto) 0.0 (0.0-0.2) /100WBC PT 11.6 (11.1-13.3) SEC INR 1.0 (0.9-1.1) Sodium 138 (135-145) mmol/L Potassium 4.8 (3.3-5.1) mmol/L Chloride 112 H (96-108) mmol/L Carbon Dioxide 15 L (22-29) mmol/L Anion Gap 16 (12-20) BUN 73 H (9-16) mg/dL Creatinine 4.79 H* (0.5-1.4) mg/dL Estim Creat Clear Calc 13.2 Estimated GFR 12 POC Glucose 93 (60-115) mg/dL Random Glucose 108 (60-115) mg/dL Calcium 8.9 (8.4-10.2) mg/dL Troponin I High Sens 37.4 H (<3.5-35.0) ng/L Urine Color Urine Appearance Urine pH (5.0-9.0) Ur Specific [place] (1.005-1.025) Urine Protein (Neg-Trace) mg/dL Urine Glucose (UA) (Negative) mg/dL Urine Ketones (Negative) mg/dL Urine Blood (Negative) Urine Nitrite (Negative) Ur Leukocyte Esterase (Negative) Urine RBC (0-2) /HPF Urine WBC (0-5) /HPF Ur Squamous Epith Cells (0-2) /HPF Urine Bacteria (None Seen) Hyaline Casts (0-2) /LPF COVID-19 (ANDI) Negative (Negative) COVID-19 Clin Com See Note 01/29/23 01/30/23 Range/Units 23:11 01:09 WBC (4.8-10.8) X10*3/uL RBC (4.60-5.80) X10*6/uL Hgb (14.0-18.0) g/dl Hct (42.0-52.0) % MCV (80.0-98.0) fL MCH (27.0-33.0) pg MCHC (31.0-36.0) g/dl RDW (11.0-16.0) % Plt Count (160-400) X10*3/uL MPV (9.4-12.4) fL Immature Gran % (Auto) (0.0-0.4) % Neut % (Auto) (45-73) % Lymph % (Auto) (20-40) % [place] % (Auto) (2-11) % Eos % (Auto) (0-4) % Baso % (Auto) (0-2) % Lymph # (Auto) (1.2-4.9) X10*3/uL [place] # (Auto) (0.1-1.2) X10*3/uL Eos # (Auto) (0.0-0.4) X10*3/uL Baso # (Auto) (0.0-0.2) X10*3/uL Abs Immat Gran (auto) (0.00-0.03) X10*3/uL Absolute Neuts (auto) (2.0-8.3) x10*3/uL Absolute Nucleated RBC (0.0-0.012) X10*3/uL Nucleated RBC % (auto) (0.0-0.2) /100WBC PT (11.1-13.3) SEC INR (0.9-1.1) Sodium (135-145) mmol/L Potassium (3.3-5.1) mmol/L Chloride (96-108) mmol/L Carbon Dioxide (22-29) mmol/L Anion Gap (12-20) BUN (9-16) mg/dL Creatinine (0.5-1.4) mg/dL Estim Creat Clear Calc Estimated GFR POC Glucose 115 (60-115) mg/dL Random Glucose (60-115) mg/dL Calcium (8.4-10.2) mg/dL Troponin I High Sens (<3.5-35.0) ng/L Urine Color Yellow Urine Appearance Cloudy Urine pH 6.5 (5.0-9.0) Ur Specific [place] 1.010 (1.005-1.025) Urine Protein 300 (3+) H (Neg-Trace) mg/dL Urine Glucose (UA) Negative (Negative) mg/dL Urine Ketones Negative (Negative) mg/dL Urine Blood Small (1+) H (Negative) Urine Nitrite Negative (Negative) Ur Leukocyte Esterase Moderate (2+) H (Negative) Urine RBC 3-5 H (0-2) /HPF Urine WBC >50 (0-5) /HPF Ur Squamous Epith Cells 0-2 (0-2) /HPF Urine Bacteria Trace (None Seen) Hyaline Casts 0-2 (0-2) /LPF COVID-19 (ANDI) (Negative) COVID-19 Clin Com Independent Interpretation I performed an independent interpretation of an: EKG Interpretation: Sinus rhythm bradycardia heart rate 50 45 minutes from Mobitz type 2 heart block left axis LVH no acute ischemia Repeat EKG done at 1 14:00 showed sinus rhythm ventricular rate 72 beats per minute first-degree heart block left axis deviation Critical Care Time Critical Care Time Critical Care Time: Yes Total Critical Care Time: 55 Attestation: The patient was critically ill with a high probability of imminent or life threatening deterioration. I spent greater than 60 minutes of discontinuous time evaluating the patient,delivering critical care at the bedside, discussing and evaluating pertinent data with consultants. Critical care time does not include time spent performing separately billable procedures or teaching. Total time spent performing critical care was 55 minutes. Discharge Plan Discharge Clinical Impression: Diabetic hypoglycemia, Acute UTI, CKD (chronic kidney disease) stage 5, GFR less than 15 ml/min, Atrioventricular block, Mobitz type 1, Wenckebach, Near syncope Patient Disposition: Admitted As Inpatient
[2023-01-29 21:15] LABS: Glucose, Whole Blood 93 mg/dL (60-115)
--- NOTE | 2023-01-29 21:17 | ECG_ITS ---
Test Reason : REPEAT Blood Pressure : / mmHG Vent. Rate : 072 BPM Atrial Rate : 072 BPM P-R Int : 320 ms QRS Dur : 124 ms QT Int : 428 ms P-R-T Axes : 039 -30 160 degrees QTc Int : 468 ms Sinus rhythm with 1st degree A-V block Left axis deviation Left ventricular hypertrophy with QRS widening and repolarization abnormality ( [place] product ) Abnormal ECG When compared with ECG of 29-JAN-2023 21:07, Sinus rhythm is no longer with 2nd degree A-V block (Mobitz I) Vent. rate has increased BY 27 BPM T wave inversion less evident in Lateral leads Referred By: Ke Muniz Electronically Signed By:JENNIFER CASTAÑEDA
[2023-01-29 21:33] LABS: MANUAL DIFF FLAG NO
[2023-01-29 21:34] LABS: Basophils Percent Auto 0.5 % (0-2); Eosinophils Absolute Auto 0.2 X10*3/uL (0.0-0.4); Eosinophils Percent Auto 3.3 % (0-4); Hematocrit 30.6 % (42.0-52.0); Hemoglobin 9.7 g/dl (14.0-18.0); Imm Gran Abs Auto 0.02 X10*3/uL (0.00-0.03); Imm Gran Pct Auto 0.3 % (0.0-0.4); Lymphocytes Percent Auto 16.7 % (20-40); Mean Corpuscular HGB Conc 31.7 g/dl (31.0-36.0); Mean Corpuscular Volume 85.2 fL (80.0-98.0); Mean Platelet Volume 9.3 fL (9.4-12.4); Monocytes Absolute Auto 0.4 X10*3/uL (0.1-1.2); Monocytes Percent Auto 6.3 % (2-11); Neutrophils Absolute Auto 4.4 x10*3/uL (2.0-8.3); Neutrophils Percent Auto 72.9 % (45-73); Platelet Count 164 X10*3/uL (160-400); Red Blood Count 3.59 X10*6/uL (4.60-5.80); Red Cell Distribution Width 13.5 % (11.0-16.0); White Blood Count 6.1 X10*3/uL (4.8-10.8)
--- NOTE | 2023-01-29 21:37 | MHC.EDTECH ---
This Tech assumed care of this patient upon arrival. EKG completed and handed to provider. POC done. PT placed on inpatient services rn and changed into hospital gown. PT given @ orange juices gerardo crackers and pudding to help raise Blood sugar
[2023-01-29 21:51] LABS: Anion Gap 16 (12-20); Blood Urea Nitrogen 73 mg/dL (9-16); Calcium 8.9 mg/dL (8.4-10.2); Carbon Dioxide 15 mmol/L (22-29); Chloride 112 mmol/L (96-108); Creatinine Clr Calc Pharmacy 13.2; Estimated Glomerular Filt Rate 12; Glucose Random 108 mg/dL (60-115); Potassium 4.8 mmol/L (3.3-5.1); Sodium 138 mmol/L (135-145)
--- NOTE | 2023-01-29 22:02 | PC.NURSE ---
Pt A/OX4, denies pain, neuros WNL, +PEERLA, POC rechecked 94, EKG performed, VSS.
[2023-01-29 22:27] VITALS: RESP 17
[2023-01-29 23:09] LABS: Prothrombin Time 11.6 SEC (11.1-13.3)
--- NOTE | 2023-01-29 23:09 | PC.NURSE ---
Assumed care of patient at 2300, patient is resting comfortably on stretcher at this time, offers no complaints to this RN other than wanting to leave to go home. This RN educated the patient that we are waiting for blood work to come back at this time and we will check is glucose again. Patient agreeable to plan at this time
[2023-01-29 23:13] VITALS: BP 170/61; PULSE 57; RESP 19; O2SAT 100
[2023-01-29 23:16] LABS: COVID-19 Test Negative (Negative); IDNOW Serial# BCCEAD1C
[2023-01-29 23:24] LABS: Troponin-I High Sensitivity 37.4 ng/L (<3.5-35.0)
[2023-01-29 23:25] LABS: Glucose, Whole Blood 115 mg/dL (60-115)
[2023-01-30] MEDS: Sodium Bicarbonate 8.4% 50 MEQ/50 ML SYRINGE IVPUSH (00:20)
--- NOTE | 2023-01-30 01:05 | ECG_ITS ---
Test Reason : hypoglycemia Blood Pressure : / mmHG Vent. Rate : 045 BPM Atrial Rate : 063 BPM P-R Int : 000 ms QRS Dur : 128 ms QT Int : 506 ms P-R-T Axes : 045 -31 176 degrees QTc Int : 437 ms Sinus rhythm with 2nd degree A-V block (Mobitz I) Left axis deviation Left ventricular hypertrophy with QRS widening and repolarization abnormality ( [place] product ) Abnormal ECG When compared with ECG of 16-JUL-2020 16:43, Significant changes have occurred Referred By: Ke Muniz Electronically Signed By:JENNIFER CASTAÑEDA
[2023-01-30 01:15] LABS: Appearance Urine Cloudy; Color Urine Yellow; Glucose Urine UA Negative (Negative); Leukocyte Esterase Urine Moderate (2+) (Negative); Nitrite Urine Negative (Negative); PH 6.5 (5.0-9.0); UMIC TRIGGER UACC YES; Urine Blood Small (1+) (Negative); Urine Ketones Negative (Negative); Urine Protein 300 (3+) mg/dL (Neg-Trace)
[2023-01-30 01:27] LABS: Bacteria Urine Trace (None Seen); Hyaline Casts Urine 0-2 /LPF (0-2); Squamous Epithelial Cell Urine 0-2 /HPF (0-2); UACC Culture Trigger YES; WBC Urine >50 /HPF (0-5)
[2023-01-30] MEDS: Dextrose 50 % 25 GM/50 ML SYRINGE IVPUSH (01:33)
--- NOTE | 2023-01-30 01:33 | PM.IMHP ---
History of Present Illness Date of Service: 01/30/23 Chief Complaint: Syncope This is a 77-year-old male with pertinent history of CKD, vac-fmhpktt-pepkulzbw diabetes mellitus, essential hypertension was brought to the emergency department as he almost passed out. Patient states while he was watching TV, his vision got blurry and he got dizzy and he thinks that he may have passed out. EMS was called and upon arrival his POC was 30. He was given oral glucose which improved his blood sugar to 82 on arrival. Patient's blood glucose dropped in the ER to the 40s and he was given IV dextrose push. An hour later his blood sugar dropped again to 67 and hospital medicine team consulted for admission. Patient denies fever, chills, nausea, vomiting, diarrhea. He states he has not been eating well lately but continued taking his glipizide. No chest discomfort, palpitation, shortness of breath, abdominal pain, changes in urinary or bowel habits. Review of Systems Constitutional: Constitutional: Reports malaise ENT: Reports dizziness Cardiovascular: Cardiovascular: Reports no additional cardiovascular complaints Respiratory: Respiratory: Reports no additional respiratory complaints Gastrointestinal: Gastrointestinal: Reports no additional gastrointestinal complaints Genitourinary: Genitourinary: Reports no additional male genitourinary complaints Neurologic: Reports confusion and Reports dizziness Psychiatric: Psychiatric: Reports confusion [facility] Medical History CAD (coronary artery disease) Diabetes mellitus with renal manifestation Screening for prostate cancer Screening for colon cancer Diabetes mellitus with coincident hypertension Diabetes mellitus Family History Father Lung cancer Mother Cancer Surgical History History of surgery History of colonoscopy History of cataract surgery History of coronary artery stent placement History of drainage of abscess Social History Housing: House Are you a primary primary care provider to a significant other at home: No Do you presently have visiting nurse or other home services: No Alcohol intake: never Patient Tobacco Use Status: Former Tobacco user Tobacco use type: Cigarette Smoked in Last 30 Days: No e-Cigarette/Vaping Use: Never Used Second Hand Smoke Exposure: No Use of substances other than those prescribed or required for medical reasons: No Advance Directives: No Advance Directives Information Provided: No Nutrition Risks: No Nutritional Risk service: No Current occupational status: retired Cognitive needs: No Hearing needs: No Vision needs: Yes (glasses) Meds Allergies Allergy/AdvReac Type Severity Reaction Status Date / Time No Known Allergies Allergy Mild NONE Verified 01/29/23 20:56 Home Medications Medication Instructions Recorded Confirmed Last Taken Type aspirin 81 mg tablet,delayed 81 mg PO DAILY 06/08/20 01/30/23 01/29/23 History release (Adult Low Dose Aspirin) calcitriol 0.25 mcg capsule 0.25 mcg PO DAILY 01/30/23 01/30/23 01/29/23 History glipizide 5 mg tablet, extended 5 mg PO DAILY 01/30/23 01/30/23 01/29/23 History release 24 hr Physical Exam Vital Signs and Narrative: Vital Signs: Last Vital Signs Pulse 57 01/29/23 23:13 Resp 19 01/29/23 23:13 BP 170/61 H 01/29/23 23:13 Pulse Ox 100 01/29/23 23:13 O2 Del Method Room Air 01/29/23 23:13 BMI result Body Mass Index 29.6 Elderly male lying in bed in no distress Neck supple, no JVD Regular rate and rhythm, S1-S2 heard Regular breath sounds bilaterally, no wheezing or crackles appreciated Abdomen soft nontender, no guarding, no rigidity Patient is awake, alert and oriented to self, place, time and person ; no focal motor deficit Psych: Normal mood No pedal edema Const: General: confusion Orientation/consciousness: confusion Neuro: General: confusion Results Labs 01/29/23 21:28 01/29/23 21:28 Labs: Laboratory Results - last 24 hr 01/29/23 01/29/23 01/29/23 20:54 21:28 22:58 MCV 85.2 MCH 27.0 MCHC 31.7 RDW 13.5 Plt Count 164 MPV 9.3 L Immature Gran % (Auto) 0.3 Neut % (Auto) 72.9 Lymph % (Auto) 16.7 L [place] % (Auto) 6.3 Eos % (Auto) 3.3 Baso % (Auto) 0.5 Lymph # (Auto) 1.0 L [place] # (Auto) 0.4 Eos # (Auto) 0.2 Baso # (Auto) 0.0 Abs Immat Gran (auto) 0.02 Absolute Neuts (auto) 4.4 Absolute Nucleated RBC 0.000 Nucleated RBC % (auto) 0.0 PT 11.6 INR 1.0 Anion Gap 16 Estim Creat Clear Calc 13.2 Estimated GFR 12 POC Glucose 93 Random Glucose 108 Calcium 8.9 Urine Color Urine Appearance Urine pH Ur Specific [place] Urine Protein Urine Glucose (UA) Urine Ketones Urine Blood Urine Nitrite Ur Leukocyte Esterase Urine RBC Urine WBC Ur Squamous Epith Cells Urine Bacteria Hyaline Casts COVID-19 (ANDI) Negative COVID-19 Clin Com See Note 01/29/23 01/30/23 23:11 01:09 MCV MCH MCHC RDW Plt Count MPV Immature Gran % (Auto) Neut % (Auto) Lymph % (Auto) [place] % (Auto) Eos % (Auto) Baso % (Auto) Lymph # (Auto) [place] # (Auto) Eos # (Auto) Baso # (Auto) Abs Immat Gran (auto) Absolute Neuts (auto) Absolute Nucleated RBC Nucleated RBC % (auto) PT INR Anion Gap Estim Creat Clear Calc Estimated GFR POC Glucose 115 Random Glucose Calcium Urine Color Yellow Urine Appearance Cloudy Urine pH 6.5 Ur Specific [place] 1.010 Urine Protein 300 (3+) H Urine Glucose (UA) Negative Urine Ketones Negative Urine Blood Small (1+) H Urine Nitrite Negative Ur Leukocyte Esterase Moderate (2+) H Urine RBC 3-5 H Urine WBC >50 Ur Squamous Epith Cells 0-2 Urine Bacteria Trace Hyaline Casts 0-2 COVID-19 (ANDI) COVID-19 Clin Com Assessment and Plan (1) Diabetic hypoglycemia: Status: Acute Plan This is a 77-year-old male with pertinent history of CKD, ood-hhhrqqr-rhijdjqrp diabetes mellitus, essential hypertension was brought to the emergency department as he almost passed out. #. Hypoglycemia due to glipizide use. Will admit patient with IV D5 NS. Closely monitor blood sugars. Hold glipizide #. Essential hypertension. Continue amlodipine and carvedilol #. CKD. Creatinine at baseline. Avoid nephrotoxins #. Chronic normocytic anemia. Hemoglobin above transfusion threshold #. Elevated troponin. Likely in the setting of increased demand #. Asymptomatic pyuria. Defer treatment DVT prophylaxis: Heparin Full code Time Spent With Patient Time: Total time managing care of this patient today ____ minutes. Quality Stroke Does the patient have a stroke diagnosis?: No VTE Prior VTE?: No VTE Risk Level:: Medical - moderate - high VTE Device Contraindication: Treatment Not Indicated VTE Drug Contraindication: N/A - Med Ordered
[2023-01-30 02:01] VITALS: BP 162/66; PULSE 57; RESP 15; TEMP 36.9; O2SAT 97
[2023-01-30] MEDS: cefTRIAXone sodium 1 GM in 0.9 % Sodium Chloride 50 ML IV (02:03)
--- NOTE | 2023-01-30 02:12 | PC.NURSE ---
late entry: patient was going to put up for d/c, this RN checked patients glucose one more time prior to d/c and found it to be 43. This RN alerted MD and provided patient with juice. Pt reports no symptoms of hypoglycemia at this time, offers no complaints to this RN. Dextrose and juice administered per MAR. Labs and cultures drawn as well d/t patient having UTI, abx started
[2023-01-30 02:36] LABS: Glucose, Whole Blood 163 mg/dL (60-115)
[2023-01-30 02:36] LABS: Glucose, Whole Blood 41 mg/dL (60-115)
[2023-01-30 02:36] LABS: Glucose, Whole Blood 46 mg/dL (60-115)
[2023-01-30 02:36] LABS: Glucose, Whole Blood 97 mg/dL (60-115)
[2023-01-30 02:39] LABS: VBG Base Excess -7.9 mmol/L; VBG HCO3 15 mmol/L (22-26); VBG pCO2 25 mmHg; VBG pH 7.39 (7.32-7.43); VBG pO2 94 mmHg
[2023-01-30 02:44] LABS: Lactic Acid 1.4 mmol/L (0.5-2.0); Venous Blood Gas Refer to POC result
[2023-01-30 03:02] LABS: Glucose, Whole Blood 66 mg/dL (60-115)
[2023-01-30] MEDS: Dextrose 5 % and 0.9 % NaCl 1,000 ML 80 ML IVCONT (03:05)
[2023-01-30 03:35] LABS: Glucose, Whole Blood 101 mg/dL (60-115)
[2023-01-30 05:55] LABS: Alanine Aminotransferase 6 U/L (0-40); Albumin Level 3.3 g/dL (3.5-5.0); Alkaline Phosphatase 74 U/L (39-117); Anion Gap 17 (12-20); Aspartate Amino Transferase 14 U/L (5-37); Bilirubin Total 0.3 mg/dL (0.0-1.0); Blood Urea Nitrogen 69 mg/dL (9-16); Calcium 8.9 mg/dL (8.4-10.2); Carbon Dioxide 15 mmol/L (22-29); Chloride 114 mmol/L (96-108); Creatinine Clr Calc Pharmacy 13.8; Estimated Glomerular Filt Rate 13; Glucose Random 61 mg/dL (60-115); Potassium 4.7 mmol/L (3.3-5.1); Sodium 141 mmol/L (135-145); Total Protein 6.4 g/dL (6.5-8.0)
--- NOTE | 2023-01-30 06:30 | MHC.EDTECH ---
POC of 62 pt given orange juice and pudding to help increase low blood sugar. RN aware
[2023-01-30 06:31] LABS: Glucose, Whole Blood 62 mg/dL (60-115)
--- NOTE | 2023-01-30 06:47 | PC.NURSE ---
Assumed care at 0300. Patient AOx4, calm, pleasant, able to make needs known. Patient up to go to bathoom, POC checked by this RN ([id number]). Plan of care ongoing
[2023-01-30 07:13] LABS: Glucose, Whole Blood 82 mg/dL (60-115)
[2023-01-30] MEDS: Heparin Sodium,Porcine 5,000 UNIT/ML VIAL 5000 UNIT SUBCUT (07:19)
--- NOTE | 2023-01-30 08:06 | PC.NURSE ---
assumed care of pt at 0700. report taken from TED Perez. pt awake, a&o in bed. consumed most of breakfast. last poc around 0700 was 82. pt currently resting quietly on stretcher watching TV, in no apparent distress. rr even/unlabored. waiting for bed assignment. pt daughter called, updated per pt request. left number with this RN, would like to be updated on pt bed assignment. Parisa (daughter): [phone]
[2023-01-30 08:31] VITALS: BP 161/59; PULSE 64; RESP 18; TEMP 36.9; O2SAT 98
--- NOTE | 2023-01-30 08:36 | PHA.MEDREC ---
Addendum entered by Lia Mann [facility] 01/30/23 09:05: Spoke to [facility], confirmed patient picked up carvedilol 6.25mg on 01/27 Original Note: Pharmacy Consult ? Medication Reconciliation Pharmacy has completed the medication reconciliation. Reviewed med rec done by nursing. Spoke to patient at bedside and confirmed he is no longer taking metformin. I also questioned the carvedilol that he insists he takes because it is new, nothing in claim history. [facility] Will call when they open to confirm
[2023-01-30 08:38] LABS: Glucose, Whole Blood 118 mg/dL (60-115)
[2023-01-30] MEDS: Aspirin Enteric Coated 81 MG TABLET.DR PO (10:27)
[2023-01-30] MEDS: carvediloL 6.25 MG TABLET PO (10:27)
[2023-01-30 11:10] LABS: Glucose, Whole Blood 83 mg/dL (60-115)
--- NOTE | 2023-01-30 11:36 | MHC.CM.PN ---
CM MET WITH PT AND IN ED20 PT LIVES WITH HIS AND DAUGHTER AND IS INDEPENDENT WITH CARE PT HAS NO DME AND NO SERVICES HE SAYS HE HAS A HCP NAMING HIS AND DAUGHTER HIS AGENTS-COPY REQUESTED PCP: [facility] NOTICE DELIVERED DCP: HOME NO SERVICES VS WITH NEW [facility] TO TRANSPORT
[2023-01-30] MEDS: calcitrioL 0.25 MCG CAPSULE PO (11:39)
--- NOTE | 2023-01-30 11:57 | PC.NURSE ---
assumed care of pt at 0700. received report from TED Perez. pt a&o, calm and cooperative but frustrated. sts he wants to see a doctor to know what the plan of care is. pt also sts he has a doctors appointment tomorrow with pcp regarding his left wrist that has intermittent pain that he wants to go to. Dr. Pierce saw pt and updated this RN on plan of care: poc's Q2H, once above 100, can d/c dextrose fluids. pt should maintain blood sugar above 100 on own. plan to discharge afterwards.
[2023-01-30 12:20] LABS: Estimated Average Glucose 88 mg/dL; Hemoglobin A1c % 4.7 % (<6.0)
[2023-01-30 13:20] LABS: Glucose, Whole Blood 173 mg/dL (60-115)
--- NOTE | 2023-01-30 13:42 | PC.NURSE ---
poc 173, Dr. Pierce order to d/c dextrose fluids. pt has had good po intake. sitting on side of bed eating lunch. will monitor poc. next poc due at 1500.
--- NOTE | 2023-01-30 14:44 | PC.NURSE ---
nurse to nurse report given to laura burciaga
[2023-01-30 14:54] LABS: Glucose, Whole Blood 156 mg/dL (60-115)
[2023-01-30 15:21] VITALS: BP 174/62; PULSE 56; RESP 20; TEMP 36.1; O2SAT 99
[2023-01-30 15:59] LABS: Glucose, Whole Blood 129 mg/dL (60-115)
--- NOTE | 2023-01-30 16:18 | PM.DS ---
DS: Providers Provider Date of Service: 01/30/23 Date of admission: 01/30/23 01:31 Primary care physician: Unknown Physician DS: Diagnosis Discharge Diagnosis (1) Diabetic hypoglycemia: Status: Acute DS: Summary Hospital Course Hospital Course: Date of Service: 01/30/23 Chief Complaint: Syncope This is a 77-year-old male with pertinent history of CKD, uzt-mftcuov-dupceovey diabetes mellitus, essential hypertension was brought to the emergency department as he almost passed out. Patient states while he was watching TV, his vision got blurry and he got dizzy and he thinks that he may have passed out. EMS was called and upon arrival his POC was 30. He was given oral glucose which improved his blood sugar to 82 on arrival. Patient's blood glucose dropped in the ER to the 40s and he was given IV dextrose push. An hour later his blood sugar dropped again to 67 and hospital medicine team consulted for admission. Patient denies fever, chills, nausea, vomiting, diarrhea. He states he has not been eating well lately but continued taking his glipizide. No chest discomfort, palpitation, shortness of breath, abdominal pain, changes in urinary or bowel habits. Hospital course: 77-year-old male with pertinent history of CKD, yfy-jyvjucg-jcrxtwuyl diabetes mellitus, essential hypertension was brought to the emergency department as he almost passed out, and was noted to have low blood sugars patient treated in the emergency room with IV dextrose push but noted to have persistent hypoglycemia therefore admitted to [facility] and placed on IV D5 drip patient's blood sugars improved, now above 100 patient is tolerating diet, is asymptomatic with no nausea no vomiting no abdominal pain no lightheadedness or dizziness his hemoglobin A1c in last 2 years is less than 6, therefore discontinued glipizide recommend to monitor blood sugars q.4 hours x2 tonight and again at a.m. if noted to have any symptoms of hypoglycemia recommend to return to [facility] patient is being discharged with glucometer. #. Essential hypertension. Dose of Coreg reduced to 3.125 mg b.i.d. due to Mobitz type 1 heart block and added Norvasc 5 mg. #. CKD stage 5 at baseline recommend outpatient follow-up with Nephrology #. Elevated troponin. Elevated in the past likely due to chronic kidney disease no chest pain EKG showed Mobitz type 1, recommend outpatient follow-up with Cardiology, dose of Coreg reduced. #. Asymptomatic pyuria. Recommend to follow urine cultures has PCP appointment at a.m. and follow up with primary care physician with history of nocturia and urinary frequency of several months. Time Spent with Patient Time attestation: Total time managing care of this patient today ____ minutes. Discharge coordination time: Greater than 30 minutes Quality: Safe Use of Opioids Does Pt have an Active Cancer Diagnosis on the Problem List?: No Quality: Stroke Does the patient have a stroke diagnosis?: No Physical Exam Vital Signs: Vital Signs: Last Vital Signs Temp 97 F 01/30/23 15:21 Pulse 56 01/30/23 15:21 Resp 20 01/30/23 15:21 BP 174/62 H 01/30/23 15:21 Pulse Ox 99 01/30/23 15:21 O2 Del Method Room Air 01/30/23 15:21 BMI result Body Mass Index 29.6 Const: Other: General awake alert x 3, in no acute distress. Neck supple no JVD. CVS regular rate rhythm, Respiratory lungs clear to auscultation, no respiratory distress, no wheeze, no rhonchi. Gastrointestinal abdomen soft, non tender, bowel sounds audible Extremities no edema. Neuro nonfocal Skin no rash DS: Data Data Completed and Pending Labs on day of discharge: Laboratory Results - last 24 hr 01/29/23 01/29/23 01/29/23 20:54 21:28 22:58 WBC 6.1 RBC 3.59 L Hgb 9.7 L Hct 30.6 L MCV 85.2 MCH 27.0 MCHC 31.7 RDW 13.5 Plt Count 164 MPV 9.3 L Immature Gran % (Auto) 0.3 Neut % (Auto) 72.9 Lymph % (Auto) 16.7 L Hettinger % (Auto) 6.3 Eos % (Auto) 3.3 Baso % (Auto) 0.5 Lymph # (Auto) 1.0 L Hettinger # (Auto) 0.4 Eos # (Auto) 0.2 Baso # (Auto) 0.0 Abs Immat Gran (auto) 0.02 Absolute Neuts (auto) 4.4 Absolute Nucleated RBC 0.000 Nucleated RBC % (auto) 0.0 PT 11.6 INR 1.0 VBG pH VBG pCO2 VBG pO2 VBG HCO3 VBG O2 Saturation VBG Base Excess Sodium 138 Potassium 4.8 Chloride 112 H Carbon Dioxide 15 L Anion Gap 16 BUN 73 H Creatinine 4.79 H* Estim Creat Clear Calc 13.2 Estimated GFR 12 POC Glucose 93 Random Glucose 108 Estimat Average Glucose Hemoglobin A1c % Lactic Acid Calcium 8.9 Total Bilirubin AST ALT Alkaline Phosphatase Troponin I High Sens 37.4 H Total Protein Albumin Urine Color Urine Appearance Urine pH Ur Specific Donner Urine Protein Urine Glucose (UA) Urine Ketones Urine Blood Urine Nitrite Ur Leukocyte Esterase Urine RBC Urine WBC Ur Squamous Epith Cells Urine Bacteria Hyaline Casts COVID-19 (ANDI) Negative COVID-19 Clin Com See Note 01/29/23 01/30/23 01/30/23 23:11 01:09 01:25 WBC RBC Hgb Hct MCV MCH MCHC RDW Plt Count MPV Immature Gran % (Auto) Neut % (Auto) Lymph % (Auto) Hettinger % (Auto) Eos % (Auto) Baso % (Auto) Lymph # (Auto) Hettinger # (Auto) Eos # (Auto) Baso # (Auto) Abs Immat Gran (auto) Absolute Neuts (auto) Absolute Nucleated RBC Nucleated RBC % (auto) PT INR VBG pH VBG pCO2 VBG pO2 VBG HCO3 VBG O2 Saturation VBG Base Excess Sodium Potassium Chloride Carbon Dioxide Anion Gap BUN Creatinine Estim Creat Clear Calc Estimated GFR POC Glucose 115 41 L* Random Glucose Estimat Average Glucose Hemoglobin A1c % Lactic Acid Calcium Total Bilirubin AST ALT Alkaline Phosphatase Troponin I High Sens Total Protein Albumin Urine Color Yellow Urine Appearance Cloudy Urine pH 6.5 Ur Specific Donner 1.010 Urine Protein 300 (3+) H Urine Glucose (UA) Negative Urine Ketones Negative Urine Blood Small (1+) H Urine Nitrite Negative Ur Leukocyte Esterase Moderate (2+) H Urine RBC 3-5 H Urine WBC >50 Ur Squamous Epith Cells 0-2 Urine Bacteria Trace Hyaline Casts 0-2 COVID-19 (ANDI) COVID-19 [facility] 01/30/23 01/30/23 01/30/23 01:27 01:56 02:29 WBC RBC Hgb Hct MCV MCH MCHC RDW Plt Count MPV Immature Gran % (Auto) Neut % (Auto) Lymph % (Auto) Hettinger % (Auto) Eos % (Auto) Baso % (Auto) Lymph # (Auto) Hettinger # (Auto) Eos # (Auto) Baso # (Auto) Abs Immat Gran (auto) Absolute Neuts (auto) Absolute Nucleated RBC Nucleated RBC % (auto) PT INR VBG pH VBG pCO2 VBG pO2 VBG HCO3 VBG O2 Saturation VBG Base Excess Sodium Potassium Chloride Carbon Dioxide Anion Gap BUN Creatinine Estim Creat Clear Calc Estimated GFR POC Glucose 46 L* 163 H Random Glucose Estimat Average Glucose Hemoglobin A1c % Lactic Acid 1.4 Calcium Total Bilirubin AST ALT Alkaline Phosphatase Troponin I High Sens Total Protein Albumin Urine Color Urine Appearance Urine pH Ur Specific Donner Urine Protein Urine Glucose (UA) Urine Ketones Urine Blood Urine Nitrite Ur Leukocyte Esterase Urine RBC Urine WBC Ur Squamous Epith Cells Urine Bacteria Hyaline Casts COVID-19 (ANDI) COVID-19 Clin Com 01/30/23 01/30/23 01/30/23 02:30 02:33 02:59 WBC RBC Hgb Hct MCV MCH MCHC RDW Plt Count MPV Immature Gran % (Auto) Neut % (Auto) Lymph % (Auto) Hettinger % (Auto) Eos % (Auto) Baso % (Auto) Lymph # (Auto) Hettinger # (Auto) Eos # (Auto) Baso # (Auto) Abs Immat Gran (auto) Absolute Neuts (auto) Absolute Nucleated RBC Nucleated RBC % (auto) PT INR VBG pH 7.39 VBG pCO2 25 VBG pO2 94 VBG HCO3 15 L VBG O2 Saturation 100.0 VBG Base Excess -7.9 Sodium Potassium Chloride Carbon Dioxide Anion Gap BUN Creatinine Estim Creat Clear Calc Estimated GFR POC Glucose 97 66 Random Glucose Estimat Average Glucose Hemoglobin A1c % Lactic Acid Calcium Total Bilirubin AST ALT Alkaline Phosphatase Troponin I High Sens Total Protein Albumin Urine Color Urine Appearance Urine pH Ur Specific Donner Urine Protein Urine Glucose (UA) Urine Ketones Urine Blood Urine Nitrite Ur Leukocyte Esterase Urine RBC Urine WBC Ur Squamous Epith Cells Urine Bacteria Hyaline Casts COVID-19 (ANDI) COVID-19 Clin Com 01/30/23 01/30/23 01/30/23 03:31 05:22 06:27 WBC RBC Hgb Hct MCV MCH MCHC RDW Plt Count MPV Immature Gran % (Auto) Neut % (Auto) Lymph % (Auto) Hettinger % (Auto) Eos % (Auto) Baso % (Auto) Lymph # (Auto) Hettinger # (Auto) Eos # (Auto) Baso # (Auto) Abs Immat Gran (auto) Absolute Neuts (auto) Absolute Nucleated RBC Nucleated RBC % (auto) PT INR VBG pH VBG pCO2 VBG pO2 VBG HCO3 VBG O2 Saturation VBG Base Excess Sodium 141 Potassium 4.7 Chloride 114 H Carbon Dioxide 15 L Anion Gap 17 BUN 69 H Creatinine 4.58 H* Estim Creat Clear Calc 13.8 Estimated GFR 13 POC Glucose 101 62 Random Glucose 61 Estimat Average Glucose Hemoglobin A1c % Lactic Acid Calcium 8.9 Total Bilirubin 0.3 AST 14 ALT 6 Alkaline Phosphatase 74 Troponin I High Sens Total Protein 6.4 L Albumin 3.3 L Urine Color Urine Appearance Urine pH Ur Specific Donner Urine Protein Urine Glucose (UA) Urine Ketones Urine Blood Urine Nitrite Ur Leukocyte Esterase Urine RBC Urine WBC Ur Squamous Epith Cells Urine Bacteria Hyaline Casts COVID-19 (ANDI) COVID-19 [facility] 01/30/23 01/30/23 01/30/23 07:10 08:27 09:18 WBC RBC Hgb Hct MCV MCH MCHC RDW Plt Count MPV Immature Gran % (Auto) Neut % (Auto) Lymph % (Auto) Hettinger % (Auto) Eos % (Auto) Baso % (Auto) Lymph # (Auto) Hettinger # (Auto) Eos # (Auto) Baso # (Auto) Abs Immat Gran (auto) Absolute Neuts (auto) Absolute Nucleated RBC Nucleated RBC % (auto) PT INR VBG pH VBG pCO2 VBG pO2 VBG HCO3 VBG O2 Saturation VBG Base Excess Sodium Potassium Chloride Carbon Dioxide Anion Gap BUN Creatinine Estim Creat Clear Calc Estimated GFR POC Glucose 82 118 H Random Glucose Estimat Average Glucose 88 Hemoglobin A1c % 4.7 Lactic Acid Calcium Total Bilirubin AST ALT Alkaline Phosphatase Troponin I High Sens Total Protein Albumin Urine Color Urine Appearance Urine pH Ur Specific Donner Urine Protein Urine Glucose (UA) Urine Ketones Urine Blood Urine Nitrite Ur Leukocyte Esterase Urine RBC Urine WBC Ur Squamous Epith Cells Urine Bacteria Hyaline Casts COVID-19 (ANDI) COVID-19 [facility] 01/30/23 01/30/23 01/30/23 11:05 13:13 14:49 WBC RBC Hgb Hct MCV MCH MCHC RDW Plt Count MPV Immature Gran % (Auto) Neut % (Auto) Lymph % (Auto) Hettinger % (Auto) Eos % (Auto) Baso % (Auto) Lymph # (Auto) Hettinger # (Auto) Eos # (Auto) Baso # (Auto) Abs Immat Gran (auto) Absolute Neuts (auto) Absolute Nucleated RBC Nucleated RBC % (auto) PT INR VBG pH VBG pCO2 VBG pO2 VBG HCO3 VBG O2 Saturation VBG Base Excess Sodium Potassium Chloride Carbon Dioxide Anion Gap BUN Creatinine Estim Creat Clear Calc Estimated GFR POC Glucose 83 173 H 156 H Random Glucose Estimat Average Glucose Hemoglobin A1c % Lactic Acid Calcium Total Bilirubin AST ALT Alkaline Phosphatase Troponin I High Sens Total Protein Albumin Urine Color Urine Appearance Urine pH Ur Specific Donner Urine Protein Urine Glucose (UA) Urine Ketones Urine Blood Urine Nitrite Ur Leukocyte Esterase Urine RBC Urine WBC Ur Squamous Epith Cells Urine Bacteria Hyaline Casts COVID-19 (ANDI) COVID-19 [facility] 01/30/23 15:51 WBC RBC Hgb Hct MCV MCH MCHC RDW Plt Count MPV Immature Gran % (Auto) Neut % (Auto) Lymph % (Auto) Hettinger % (Auto) Eos % (Auto) Baso % (Auto) Lymph # (Auto) Hettinger # (Auto) Eos # (Auto) Baso # (Auto) Abs Immat Gran (auto) Absolute Neuts (auto) Absolute Nucleated RBC Nucleated RBC % (auto) PT INR VBG pH VBG pCO2 VBG pO2 VBG HCO3 VBG O2 Saturation VBG Base Excess Sodium Potassium Chloride Carbon Dioxide Anion Gap BUN Creatinine Estim Creat Clear Calc Estimated GFR POC Glucose 129 H Random Glucose Estimat Average Glucose Hemoglobin A1c % Lactic Acid Calcium Total Bilirubin AST ALT Alkaline Phosphatase Troponin I High Sens Total Protein Albumin Urine Color Urine Appearance Urine pH Ur Specific Donner Urine Protein Urine Glucose (UA) Urine Ketones Urine Blood Urine Nitrite Ur Leukocyte Esterase Urine RBC Urine WBC Ur Squamous Epith Cells Urine Bacteria Hyaline Casts COVID-19 (ANDI) COVID-19 Clin Com Discharge Plan Discharge Anticipated Discharge Date/Time: 01/30/23 16:08 Patient Disposition: Home Health Service Discharge Diagnosis: Near syncope Hypoglycemia Referrals: Physician,Unknown J [Primary Care Provider] - 1 Week Discharge Medications: New (DME) FreeStyle Lite Strips Strip Qty: 100 0RF Rx Instructions: Test four times a day or as directed. (DME) blood-glucose meter [FreeStyle Lite Meter] Kit Qty: 1 0RF Rx Instructions: As Directed alcohol swabs Pads, Medicated 1 pad TOPICAL QIDACHS Qty: 100 0RF Rx Instructions: Use four times a day or as directed. (DME) lancets [FreeStyle Lancets] 28 gauge misc Qty: 100 0RF Rx Instructions: Test four times a day or as directed. carvedilol [Coreg] 3.125 mg tablet 3.125 mg PO BID Qty: 60 0RF Rx Instructions: must administer with a meal/food amlodipine [Norvasc] 5 mg tablet 5 mg PO DAILY Qty: 30 0RF Continued calcitriol 0.25 mcg capsule 0.25 mcg PO DAILY aspirin [Adult Low Dose Aspirin] 81 mg tablet,delayed release (DR/EC) 81 mg PO DAILY Discontinued carvedilol 6.25 mg tablet 6.25 mg PO BID Qty: 180 8RF Rx Instructions: must administer with a meal/food glipizide 5 mg tablet extended release 24hr 5 mg PO DAILY Discharge Orders: Discharge Order (Routine); Ordered 01/30/23 Ordered By: Talya Pierce Diet: Advance to usual diet Activity on Discharge: As tolerated Stand Alone Forms: Patient Portal Discharge page Care Plan Goals: Chronic kidney disease stage 5 Hypoglycemia stop All oral hypoglycemics Check blood sugars today q.4 hours x2 and then again checked blood sugar at a.m. if noted to have blood sugars below 60 or become lightheaded dizzy, passing out feeling, heart racing return back to [facility] Drink orange use, regular diet, take glucose gel/tablet with low blood sugars if blood sugars below 100 Urine culture pending discuss urinary frequency with primary care physician Health Concerns: Continue all home medications as prescribed Markitz type 1 second-degree heart block, dose of Coreg reduced to 3.125 twice daily, added Norvasc 5 mg daily. Plan of Treatment: Follow-up with primary care physician and Nephrology call for appointment. Assessment: As above Discharge Date/Time: 01/30/23 16:25
--- NOTE | 2023-01-30 16:46 | PM.EVENT ---
Event Note Date of Service: 01/30/23 Event Note: Called patient and informed him about changes in his medications including reduced dose of Coreg to 3.125 mg b.i.d. and adding Norvasc 5 mg daily for better blood pressure control. Time Spent With Patient Time: Total time managing care of this patient today ____ minutes.
== END 2023-01-30 16:25 | disposition home health service (06) ==
LOC: HO.ED 01-30 01:40 → HO.EDOVER 01-30 02:28 → HO.S3 01-30 14:19
PROVIDERS: Admitting Provider Student in an Organized Health Care Education/Training Program; Emergency Provider Internal Medicine; PCP Internal Medicine; Visit Provider Hospitalist
DX: R55 Syncope and collapse (principal); E11.649 Type 2 diabetes mellitus with hypoglycemia without coma; E11.22 Type 2 diabetes mellitus with diabetic chronic kidney disease; I12.0 Hypertensive chronic kidney disease with stage 5 chronic kidney disease or end stage renal disease; N18.5 Chronic kidney disease, stage 5; N39.0 Urinary tract infection, site not specified; I44.1 Atrioventricular block, second degree; I25.10 Atherosclerotic heart disease of native coronary artery without angina pectoris; D64.9 Anemia, unspecified; R77.8 Other specified abnormalities of plasma proteins; Z20.822 Contact with and (suspected) exposure to COVID-19
CPT/HCPCS: 36415; 80048; 80053; 81001; 82803; 82947; 83036; 83605; 84484; 85025; 85610; 87040; 87086; 87147; 87635; 93005; 96361; 96365; 96375; 99221; 99285; J0696; J1643

== ENCOUNTER → 2023-01-30 01:31 | Outpatient (BNV) | payer MEDICARE, SELFPAY | PROVIDERS: Admitting Provider Student in an Organized Health Care Education/Training Program; Emergency Provider Internal Medicine; Visit Provider Student in an Organized Health Care Education/Training Program | DX: E11.649 Type 2 diabetes mellitus with hypoglycemia without coma (principal); E11.22 Type 2 diabetes mellitus with diabetic chronic kidney disease; N18.5 Chronic kidney disease, stage 5 | CPT/HCPCS: 99236; 99499 ==

== ENCOUNTER 2023-01-31 10:22 | Outpatient (AMB) | payer MEDICARE, SELFPAY ==
[2023-01-31 10:23] VITALS: BP 144/60; PULSE 70; O2SAT 100; BMI 28.9
--- NOTE | 2023-01-31 10:23 | A.OFFPC_ITS ---
Vital Signs 01/31/23 10:23 Height 5 ft 6 in Weight 179 lb BMI 28.9 BP 144/60 H Blood Pressure Location Lt brachial Position Sitting Pulse 70 Pulse Source Pulse Oximeter Pulse Oximetry (%) 100 Oxygen Delivery Method Room Air Intake Visit Reasons: discuss x-ray results/ can't move wrist Healthcare Consultant: Present Accompanied by: Daughter Allergies No Known Allergies Allergy (Mild, Verified 01/31/23 10:24) NONE Tobacco use date assessed: 07/11/22 Fall risk assessment: No Falls in past year Last assessed Fall Risk: 01/31/23 Dental Screening Dental Screen Date: 01/31/23 Did you have a dental visit in the last 12 months?: No Did you have a dental problem in the last 6 months where you did not have access to dental care?: No Was dental information given to patient?: Patient has dentist HPI discuss x-ray results/ can't move wrist HPI Details pain swelling left wrist PFSH Medical History CAD (coronary artery disease) Diabetes mellitus with renal manifestation Screening for prostate cancer Screening for colon cancer Diabetes mellitus with coincident hypertension Diabetes mellitus Surgical History History of surgery History of colonoscopy History of cataract surgery History of coronary artery stent placement History of drainage of abscess Family History Father Lung cancer Mother Cancer Social History Household Members: Spouse and Family Housing: House Are you a primary health care administrator to a significant other at home: No Do you presently have visiting nurse or other home services: No Alcohol intake: never Patient Tobacco Use Status: Former Tobacco user Quit Date: 40 years Tobacco use type: Cigarette e-Cigarette/Vaping Use: Never Used Second Hand Smoke Exposure: No service: No Current occupational status: retired Cognitive needs: No Hearing needs: No Vision needs: Yes (glasses) Questionnaire PHQ-9 Over the last 2 weeks, how often have you been bothered by any of the following problems? 1. Little interest or pleasure in doing things: not at all 2. Feeling down, depressed, or hopeless: not at all 3. Trouble falling or staying asleep, or sleeping too much: not at all 4. Feeling tired or having little energy: not at all 5. Poor appetite or overeating: not at all 6. Feeling bad about yourself - or that you are a failure or have let yourself or your family down: not at all 7. Trouble concentrating on things, such as reading the newspaper or watching television: not at all 8. Moving or speaking so slowly that other people could have noticed. Or the opposite - being so fidgety or restless that you have been moving around a lot more than usual: not at all 9. Thoughts that you would be better off or of hurting yourself in some way: not at all Total score: 0 Depression Screening Interpretation: Negative 33788 - PHQ-9 Billing: Yes Source: Developed by Drs. Jerald Perkins, Tracie Oconnor, Jenaro Horn and colleagues, with an educational jennifer from [employer]. Thrive Questionnaire Date Thrive assessed: 01/30/23 AUDIT C Alcohol Use Questionnaire (AUDIT-C) 1. How often do you have a drink containing alcohol?: Monthly or less 2. How many drinks containing alcohol do you have on a typical day when you are drinking?: 1 or 2 3. How often do you have six or more drinks on one occasion?: Never Total Score: 1 Score Reviewed/Action Taken: Yes ROBERTO CARLOS-7 AMB Questionnaire ROBERTO CARLOS-7 Date ROBERTO CARLOS - 7 assessed: 07/11/22 Source: Developed by Drs. Jerald Perkins, Tracie Oconnor, Jenaro Horn and colleagues, with an educational jennifer from [employer]. Review of Systems Const Denies chills, Denies headache(s) and Denies weight loss ENT Denies headache(s) Card Denies chest pain, Denies syncope, Denies irregular heart rhythm and Denies dyspnea Resp Denies chest congestion, Denies cough and Denies dyspnea GI Denies abdominal pain, Denies change in stool character, Denies nausea and Denies vomiting Musc Denies deformity and Denies joint swelling Neuro Denies syncope and Denies headache(s) Physical exam (Primary Care) Vital Signs: Last Vital Signs Pulse 70 01/31/23 10:23 BP 144/60 H 01/31/23 10:23 Pulse Ox 100 01/31/23 10:23 Oxygen Delivery Method Room Air 01/31/23 10:23 BMI result Body Mass Index 28.9 Tobacco/Smoking Status: Tobacco use Status Tobacco use date assessed 07/11/22 01/31/23 10:29 Patient Tobacco Use Status Former Tobacco user 01/31/23 10:29 Tobacco use type Cigarette 01/31/23 10:29 e-Cigarette/Vaping Use Never Used 01/31/23 10:29 PHQ-9: PHQ-9 Score PHQ-9: Total score 0 01/31/23 10:29 Depression Screening Interpretation: Negative Thrive Assessment: Date of Thrive Assessment Date Thrive assessed 01/30/23 01/31/23 10:29 Const General: cooperative, comfortable, no acute distress and alert Neck Neck: Yes no lymphadenopathy Thyroid: Thyroid normal Resp Effort & Inspection: normal respiratory effort Auscultation: clear to auscultation bilaterally Percussion: percussion normal Cardio Jugular venous distension: no JVD Palpation: normal PMI Rate: regular rate Rhythm: regular rhythm Heart sounds: S1 normal heart sound present and S2 normal heart sound present GI Inspection: Yes normal to inspection Palpation (GI): No hepatosplenomegaly present Skin General skin exam: no rashes or lesions noted Extrem General: Yes no clubbing, cyanosis or edema Assessment and Plan Assessment & Plan (1) Gout: Code(s): M10.9 - Gout, unspecified Plan: rx and lab Orders: Orders Uric Acid Today M10.9 - Gout, unspecified Medications: New naproxen (Naprosyn) 500 mg PO BID PRN 60 tabs 0RF pain Coding Level of Care Code Est Pt Level 3 (15462) Diagnoses Gout M10.9
== END 2023-01-31 10:50 | disposition home or self-care (01) ==
PROVIDERS: PCP Internal Medicine; Visit Provider Internal Medicine
DX: M10.9 Gout, unspecified (principal)
CPT/HCPCS: 99213

== ENCOUNTER 2023-01-31 11:09 | Outpatient (REF) | payer MEDICARE, SELFPAY ==
[2023-01-31 12:41] LABS: Alanine Aminotransferase 9 U/L (0-40); Albumin Level 3.4 g/dL (3.5-5.0); Alkaline Phosphatase 76 U/L (39-117); Anion Gap 16 (12-20); Aspartate Amino Transferase 41 U/L (5-37); Bilirubin Total 0.5 mg/dL (0.0-1.0); Blood Urea Nitrogen 64 mg/dL (9-16); Carbon Dioxide 18 mmol/L (22-29); Chloride 112 mmol/L (96-108); Glucose Fasting 158 mg/dL (60-99); Potassium 4.6 mmol/L (3.3-5.1); Sodium 141 mmol/L (135-145); Total Protein 6.7 g/dL (6.5-8.0); Uric Acid 8.4 mg/dL (3.4-7.0)
[2023-01-31 13:09] LABS: Creatinine Urine 71.89 mg/dL
[2023-01-31 13:24] LABS: Estimated Glomerular Filt Rate 13
[2023-01-31 13:48] LABS: Microalbumin Urine > 2000.0 mg/L
== END 2023-01-31 11:10 | disposition home or self-care (01) ==
LOC: HO.LAB 11:09
PROVIDERS: PCP Internal Medicine; Visit Provider Internal Medicine
DX: M10.9 Gout, unspecified (principal); N28.9 Disorder of kidney and ureter, unspecified; E11.69 Type 2 diabetes mellitus with other specified complication; E66.01 Morbid (severe) obesity due to excess calories
CPT/HCPCS: 36415; 80053; 82043; 82570; 84550

== ENCOUNTER 2023-02-06 09:19 | Outpatient (REF) | payer MEDICARE, SELFPAY ==
[2023-02-06 10:50] LABS: Anion Gap 14 (12-20); Blood Urea Nitrogen 64 mg/dL (9-16); Calcium 9.3 mg/dL (8.4-10.2); Carbon Dioxide 19 mmol/L (22-29); Chloride 111 mmol/L (96-108); Estimated Glomerular Filt Rate 14; Potassium 5.2 mmol/L (3.3-5.1); Sodium 139 mmol/L (135-145)
[2023-02-06 10:55] LABS: ~HepC Num1 0.06 S/CO (0.00-0.79); ~Hepatitis B Surface Antibody NONREACTIVE (Nonreactive); ~Hepatitis C Antibody Nonreactive (Nonreactive)
[2023-02-08 02:34] LABS: Complement C3 127 mg/dL (82-185)
[2023-02-08 13:48] LABS: Anti Glomerular Basement Memb <1.0 AI
[2023-02-12 08:34] LABS: Anti Nuclear Antibody Screen NEGATIVE (NEGATIVE)
[2023-02-12 15:28] LABS: Neutrophil Cyto Ab Screen NEGATIVE (NEGATIVE)
== END 2023-02-06 09:20 | disposition home or self-care (01) ==
LOC: HO.LAB 09:19
PROVIDERS: PCP Internal Medicine; Visit Provider Internal Medicine Hypertension Specialist
DX: N18.5 Chronic kidney disease, stage 5 (principal)
CPT/HCPCS: 36415; 80051; 82310; 82565; 83520; 84520; 86036; 86038; 86160; 86706; 86803

== ENCOUNTER 2023-02-14 09:21 | Outpatient (AMB) | payer MEDICARE, SELFPAY ==
--- NOTE | 2023-02-14 09:37 | MHC.PC.OV ---
Vital Signs 02/14/23 09:40 Height 5 ft 6 in Weight 171 lb BMI 27.6 BP 132/52 L Blood Pressure Location Lt brachial Position Sitting Pulse 55 Pulse Source Pulse Oximeter Pulse Oximetry (%) 100 Oxygen Delivery Method Room Air Intake Visit Reasons: 3mth f/u [employer] Buffer: Not Required per policy Accompanied by: Self / Same As Patient Allergies No Known Allergies Allergy (Mild, Verified 02/14/23 09:38) NONE Medication List - Last Reconciled 02/14/23 by Severo Estes MD alcohol swabs 1 pad topical QIDACHS amlodipine (Norvasc) 5 mg PO DAILY aspirin (Adult Low Dose Aspirin) 81 mg PO DAILY blood sugar diagnostic (C[employer]uch Ultra Test strips) check once per day blood-glucose meter ([employer]uch Ultra2 Meter) check once per day calcitriol 0.25 mcg PO DAILY carvedilol (Coreg) 3.125 mg PO BID lancets (OnGreenTouch UltraSoft 2 Lancet) check once per day naproxen (Naprosyn) 500 mg PO BID PRN Tobacco use date assessed: 07/11/22 Fall risk assessment: No Falls in past year Last assessed Fall Risk: 02/14/23 Dental Screening Dental Screen Date: 02/14/23 Did you have a dental visit in the last 12 months?: No Did you have a dental problem in the last 6 months where you did not have access to dental care?: No Was dental information given to patient?: Patient has dentist HPI 3mth f/u HPI Details DM renal failure and HTN; sees nephrology [facility] Medical History Atrioventricular block, Mobitz type 1, Wenckebach CKD (chronic kidney disease) stage 5, GFR less than 15 ml/min CAD (coronary artery disease) Diabetes mellitus with renal manifestation Screening for prostate cancer Screening for colon cancer Diabetes mellitus with coincident hypertension Diabetes mellitus Surgical History History of surgery History of colonoscopy History of cataract surgery History of coronary artery stent placement History of drainage of abscess Family History Father Lung cancer Mother Cancer Social History (Reviewed 02/14/23 @ 09:38 by BERLIN Burkett Household Members: Spouse and Family Housing: House Are you a primary ambulatory care coordinator to a significant other at home: No Do you presently have visiting nurse or other home services: No Alcohol intake: never Patient Tobacco Use Status: Former Tobacco user Quit Date: 40 years Tobacco use type: Cigarette e-Cigarette/Vaping Use: Never Used Second Hand Smoke Exposure: No service: No Current occupational status: retired Cognitive needs: No Hearing needs: No Vision needs: Yes (glasses) Questionnaire PHQ-9 Over the last 2 weeks, how often have you been bothered by any of the following problems? 1. Little interest or pleasure in doing things: not at all 2. Feeling down, depressed, or hopeless: not at all 3. Trouble falling or staying asleep, or sleeping too much: not at all 4. Feeling tired or having little energy: not at all 5. Poor appetite or overeating: not at all 6. Feeling bad about yourself - or that you are a failure or have let yourself or your family down: not at all 7. Trouble concentrating on things, such as reading the newspaper or watching television: not at all 8. Moving or speaking so slowly that other people could have noticed. Or the opposite - being so fidgety or restless that you have been moving around a lot more than usual: not at all 9. Thoughts that you would be better off or of hurting yourself in some way: not at all Total score: 0 Depression Screening Interpretation: Negative Depression Screening Done: Yes 87057 - PHQ-9 Billing: Yes Source: Developed by Drs. Jerald Perkins, Tracie Oconnor, Jenaro Horn and colleagues, with an educational jennifer from [employer]. Thrive Questionnaire Date Thrive assessed: 01/30/23 AUDIT C Alcohol Use Questionnaire (AUDIT-C) 1. How often do you have a drink containing alcohol?: Monthly or less 2. How many drinks containing alcohol do you have on a typical day when you are drinking?: 1 or 2 3. How often do you have six or more drinks on one occasion?: Never Total Score: 1 Score Reviewed/Action Taken: Yes ROBERTO CARLOS-7 AMB Questionnaire ROBERTO CARLOS-7 Date ROBERTO CARLOS - 7 assessed: 07/11/22 Source: Developed by Drs. Jerald Perkins, Tracie Oconnor, Jenaro Horn and colleagues, with an educational jennifer from [employer]. Review of Systems Const Denies chills, Denies headache(s) and Denies weight loss ENT Denies headache(s) Card Denies chest pain, Denies syncope, Denies irregular heart rhythm and Denies dyspnea Resp Denies chest congestion, Denies cough and Denies dyspnea GI Denies abdominal pain, Denies change in stool character, Denies nausea and Denies vomiting Musc Denies deformity and Denies joint swelling Neuro Denies syncope and Denies headache(s) Physical exam (Primary Care) Vital Signs: Last Vital Signs Pulse 55 02/14/23 09:40 BP 132/52 L 02/14/23 09:40 Pulse Ox 100 02/14/23 09:40 Oxygen Delivery Method Room Air 02/14/23 09:40 BMI result Body Mass Index 27.6 Tobacco/Smoking Status: Tobacco use Status Tobacco use date assessed 07/11/22 02/14/23 09:42 Patient Tobacco Use Status Former Tobacco user 02/14/23 09:42 Tobacco use type Cigarette 02/14/23 09:42 e-Cigarette/Vaping Use Never Used 02/14/23 09:42 PHQ-9: PHQ-9 Score PHQ-9: Total score 0 02/14/23 09:54 Depression Screening Interpretation: Negative Thrive Assessment: Date of Thrive Assessment Date Thrive assessed 01/30/23 02/14/23 09:42 Const General: cooperative, comfortable, no acute distress and alert Neck Neck: Yes no lymphadenopathy Thyroid: Thyroid normal Resp Effort & Inspection: normal respiratory effort Auscultation: clear to auscultation bilaterally Percussion: percussion normal Cardio Jugular venous distension: no JVD Palpation: normal PMI Rate: regular rate Rhythm: regular rhythm Heart sounds: S1 normal heart sound present and S2 normal heart sound present GI Inspection: Yes normal to inspection Palpation (GI): No hepatosplenomegaly present Skin General skin exam: no rashes or lesions noted Extrem General: Yes no clubbing, cyanosis or edema Office Procedures Flu Questionnaire Does the patient have a severe egg allergy?: No Does the patient have severe life threatening allergies?: No Does the patient have a fever or illness today?: No Has the patient ever had Guillain-Fresno Syndrome?: No Has the patient ever had any past reaction to a flu shot?: No Immunizations flu vacc [id number] 6mos up(PF) 60 mcg(15 mcgx4)/0.5 mL IM syringe Performing Provider: Severo Estes MD [facility] Documented (not given) by: GEORGE Burkett on 02/14/23 09:52 Reason Not Given: Patient Refused Assessment and Plan Assessment & Plan (1) Hypertension: Code(s): I10 - Essential (primary) hypertension Plan: stble; same x (2) Chronic renal insufficiency: Code(s): N18.9 - Chronic kidney disease, unspecified Plan: per nephrology; Cr 4 (3) Diabetes mellitus with renal manifestation: Comment: states he follows w/nephrology Code(s): E11.29 - Type 2 diabetes mellitus with other diabetic kidney complication Plan: stable; same rx Orders: Orders Influenza [id number] Immunization Today Z23 - Encounter for immunization Lipid Panel Today E78.5 - Hyperlipidemia, unspecified Glucose Fasting Today R73.9 - Hyperglycemia, unspecified Hemoglobin A1c Today R73.9 - Hyperglycemia, unspecified Coding Level of Care Code Est Pt Level 4 (85370) Diagnoses Hypertension I10 Chronic renal insufficiency N18.9 Diabetes mellitus with renal manifestation E11.29
[2023-02-14 09:40] VITALS: BP 132/52; PULSE 55; O2SAT 100; BMI 27.6
== END 2023-02-14 09:52 | disposition home or self-care (01) ==
PROVIDERS: PCP Internal Medicine; Visit Provider Internal Medicine
DX: I12.9 Hypertensive chronic kidney disease with stage 1 through stage 4 chronic kidney disease, or unspecified chronic kidney disease (principal); N18.9 Chronic kidney disease, unspecified; E11.29 Type 2 diabetes mellitus with other diabetic kidney complication; Z23 Encounter for immunization
CPT/HCPCS: 90471; 90686; 99214

== ENCOUNTER 2023-02-19 13:24 | Outpatient (AMB) | payer MEDICARE, SELFPAY ==
[2023-02-19 13:35] VITALS: BMI 27.6
--- NOTE | 2023-02-19 13:35 | MHC.OFFVIS ---
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 Pt is right handed. Pt states that he was just released from the hospital today after an admit of 18 hours for low blood sugar. He had passed out and was brought to [facility] [place]. 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 Reason for dialysis access includes chronic kidney disease Current GFR 14 reported on 02/06/2023 Not currently on dialysis Patient denies any previous catheter use, pacemaker or other risk factors for central venous stenosis. Patient denies any previous fistula or graft placement Expected time to dialysis is less than 6 months or is currently on dialysis Hand dominance right Patient now presents for evaluation of permanent dialysis access [facility] Medical History (Updated 02/19/23 @ 14:22 by Melecio Clancy MD) CKD (chronic kidney disease) stage 5, GFR less than 15 ml/min Atrioventricular block, Mobitz type 1, Wenckebach CAD (coronary artery disease) Diabetes mellitus with renal manifestation Screening for prostate cancer Screening for colon cancer Diabetes mellitus with coincident hypertension Diabetes mellitus Surgical History History of surgery History of colonoscopy History of cataract surgery History of coronary artery stent placement History of drainage of abscess Family History Father Lung cancer Mother Cancer Social History Household Members: Spouse and Family Housing: House Are you a primary associate director career services to a significant other at home: No Do you presently have visiting nurse or other home services: No Alcohol intake: never Patient Tobacco Use Status: Former Tobacco user Quit Date: 40 years Tobacco use type: Cigarette e-Cigarette/Vaping Use: Never Used Second Hand Smoke Exposure: No service: No Current occupational status: retired Cognitive needs: No Hearing needs: No Vision needs: Yes (glasses) Review of Systems Const All systems reviewed & are unremarkable except as noted in HPI and below Reports no additional complaints ENT Reports Normal hearing present Card Denies chest pain, Denies chest pain at rest, Denies chest pain with activity and Denies pedal edema Resp Denies cough GI Denies abdominal pain Musc Denies abnormal gait, Denies muscle cramps and Denies radiating pain into limb Skin/Breast Denies skin ulcer and Denies wounds Neuro Reports Normal hearing present and Denies abnormal gait Psych Reports no additional complaints Physical Exam Vital Signs: BMI result Body Mass Index 27.6 Const General: cooperative, healthy appearing and comfortable Orientation/consciousness: oriented to person, oriented to place and oriented to time HEENT Head: Yes normal to inspection Neck Neck: Yes normal visual inspection Carotids: no bruits Chest Chest palpation & inspection: normal inspection of the chest Resp Effort & Inspection: normal respiratory effort and able to speak in complete sentences Auscultation: clear to auscultation bilaterally, no crackles, no rales, no rhonchi and no wheezes Cardio Rate: regular rate Rhythm: regular rhythm Heart sounds: S1 normal heart sound present and S2 normal heart sound present Bruits: no carotid bruits Peripheral pulses: Peripheral pulses 2+ throughout GI Inspection: Yes normal to inspection Skin Wounds: no wounds Hair: normal Neuro General: oriented to person, oriented to place and oriented to time Cranial nerves: Yes CN's II-XII intact bilaterally and Yes Normal hearing present Cognition (Neuro): normal cognition Motor exam (neuro): 5/5 motor strength present throughout Extrem Other: venous exam: No significant superficial varicosities or spider telangiectasias, minimal edema General: No clubbing, No cyanosis and No edema Psych Appearance: grossly normal Mental Status: mental status grossly normal Speech and movement: Normal speech and movement present Results Reviewed Results Reviewed: Bedside ultrasound demonstrates excellent cephalic vein all the way down to the wrist Assessment & Plan Assessment & Plan (1) CKD (chronic kidney disease) stage 5, GFR less than 15 ml/min: Code(s): N18.5 - Chronic kidney disease, stage 5 Plan: In short patient has chronic renal insufficiency that is headed towards dialysis. He is in need of permanent dialysis access. The patient will require left upper extremity fistula creation. Risks benefits complications including but not limited to bleeding infection steal thrombosis and limb loss was discussed in detail with the patient. He was in agreement. We will schedule him as soon as possible. Thank you for allowing us to assist in his care. Coding Level of Care Code New Pt Level 4 (25310) Diagnoses CKD (chronic kidney disease) stage 5, GFR less than 15 ml/min N18.5
== END 2023-02-19 14:29 | disposition home or self-care (01) ==
PROVIDERS: PCP Internal Medicine; Visit Provider Surgery Vascular Surgery
DX: N18.5 Chronic kidney disease, stage 5 (principal)
CPT/HCPCS: 99204

== ENCOUNTER → 2023-02-19 13:24 | Outpatient (BNVA) | payer MEDICARE, SELFPAY | PROVIDERS: PCP Internal Medicine; Visit Provider Surgery Vascular Surgery ==

== ENCOUNTER 2023-03-04 06:03 | Day surgery (SDC) | payer MEDICARE, SELFPAY ==
[2023-03-04 06:11] VITALS: BMI 28.4
--- NOTE | 2023-03-04 06:27 | ECG_ITS ---
Test Reason : pre op Blood Pressure : / mmHG Vent. Rate : 057 BPM Atrial Rate : 057 BPM P-R Int : 360 ms QRS Dur : 124 ms QT Int : 450 ms P-R-T Axes : 041 -34 142 degrees QTc Int : 438 ms Sinus bradycardia with marked sinus arrhythmia with 1st degree A-V block with occasional Premature ventricular complexes Left anterior fascicular block ;blocked Premature atrial complexes T-wave inversion in Lateral leads Left ventricular hypertrophy with QRS widening and repolarization abnormality ( [place] product ) Abnormal ECG When compared with ECG of 30-JAN-2023 01:14, Premature ventricular complexes are now Present Referred By: Chetan Medina Electronically Signed By:CYNTHIA SALGADO MD
[2023-03-04 06:35] LABS: Hematocrit 33.1 % (42.0-52.0); Hemoglobin 10.4 g/dl (14.0-18.0); Mean Corpuscular HGB Conc 31.4 g/dl (31.0-36.0); Mean Corpuscular Hemoglobin 26.7 pg (27.0-33.0); Mean Corpuscular Volume 85.1 fL (80.0-98.0); Platelet Count 172 X10*3/uL (160-400); Red Blood Count 3.89 X10*6/uL (4.60-5.80); Red Cell Distribution Width 13.6 % (11.0-16.0); White Blood Count 7.7 X10*3/uL (4.8-10.8)
[2023-03-04] MEDS: 0.9 % Sodium Chloride 1,000 ML 100 ML IVCONT (06:49)
[2023-03-04 06:51] LABS: Glucose, Whole Blood 70 mg/dL (60-115)
[2023-03-04 06:54] VITALS: BP 174/56; PULSE 50; RESP 16; TEMP 36.1; O2SAT 99
[2023-03-04 06:57] LABS: Anion Gap 17 (12-20); Blood Urea Nitrogen 53 mg/dL (9-16); Calcium 9.5 mg/dL (8.4-10.2); Carbon Dioxide 15 mmol/L (22-29); Chloride 112 mmol/L (96-108); Glucose Random 82 mg/dL (60-115); Potassium 4.8 mmol/L (3.3-5.1); Sodium 139 mmol/L (135-145)
[2023-03-04 07:00] LABS: Creatinine Clr Calc Pharmacy 14.7; Estimated Glomerular Filt Rate 14
--- NOTE | 2023-03-04 07:08 | PC.NURSE ---
Pt noted to have EKG changes from pre testing EKG performed on 01/30/23. EKG ordered and completed; available in pt chart for review. Dr. Clancy notifed of EKG report and Critical Creatinine of 4.22 at 0708.
--- NOTE | 2023-03-04 07:20 | HO.ANESPROP2 ---
Documented by User: Julia Green NP 03/01/23 08:22 HPI - Anesthesia Eval Consult details Narrative: 77yo M for Left ?AV Fistula Creation arm CKD approaching ESRD CAD with stent 2011 (no routine cardiology, only PCP) Mobitz Type 1 block [facility] [place] admit 01/2023 with hypoglycemia PMFSH Active Problems Active Problems: All Active Problems (Updated 02/19/23 @ 14:22 by Melecio Clancy MD) CKD (chronic kidney disease) stage 5, GFR less than 15 ml/min (Acute) Gout (Acute) Adult general medical exam (Acute) Hypertension (Acute) Chronic renal insufficiency (Acute) Anemia (Acute) Personal history of colonic polyps (Acute) Diabetes mellitus with renal manifestation (Acute) Screening for prostate cancer (Acute) Screening for colon cancer (Acute) Diabetes mellitus with coincident hypertension (Acute) Diabetes mellitus (Acute) Past Medical History Medical History CKD (chronic kidney disease) stage 5, GFR less than 15 ml/min Atrioventricular block, Mobitz type 1, Wenckebach CAD (coronary artery disease) Diabetes mellitus with renal manifestation Screening for prostate cancer Screening for colon cancer Diabetes mellitus with coincident hypertension Diabetes mellitus Family History Family History Father Lung cancer Mother Cancer Surgical History Surgical History History of surgery History of colonoscopy History of cataract surgery History of coronary artery stent placement History of drainage of abscess Social History Social History Household Members: Spouse and Family Housing: House Are you a primary md do resident urgent care to a significant other at home: No Do you presently have visiting nurse or other home services: No Alcohol intake: never Patient Tobacco Use Status: Former Tobacco user Quit Date: 40 years Tobacco use type: Cigarette Smoked in Last 30 Days: No e-Cigarette/Vaping Use: Never Used Second Hand Smoke Exposure: No Use of substances other than those prescribed or required for medical reasons: No Are you DNR?: No Advance Directives: No Advance Directives Information Provided: Yes service: No Current occupational status: retired Cognitive needs: No Hearing needs: No Vision needs: Yes (glasses) Meds Allergies Allergy/AdvReac Type Severity Reaction Status Date / Time No Known Allergies Allergy Mild NONE Verified 03/04/23 06:44 Home Medications Medication Instructions Recorded Confirmed Last Taken Type aspirin 81 mg tablet,delayed 81 mg PO DAILY 06/08/20 03/04/23 03/03/23 11:00 History release (Adult Low Dose Aspirin) calcitriol 0.25 mcg capsule 0.25 mcg PO DAILY 01/30/23 03/04/23 03/03/23 11:00 History Exam Exam Date and Time: March 01, 2023 0815 Narrative Narrative: EKG 01/2023 Vent. Rate : 045 BPM Atrial Rate : 063 BPM P-R Int : 000 ms QRS Dur : 128 ms QT Int : 506 ms P-R-T Axes : 045 -31 176 degrees QTc Int : 437 ms Sinus rhythm with 2nd degree A-V block (Mobitz I) Left axis deviation Left ventricular hypertrophy with QRS widening and repolarization abnormality ( [place] product ) Abnormal ECG When compared with ECG of 16-JUL-2020 16:43, Significant changes have occurred Assessment and Plan Assessment Anesthesia Assessment: Chart Reviewed Documented by User: Bethany Brown DO 03/04/23 07:28 [facility] Past Medical History Medical History CKD (chronic kidney disease) stage 5, GFR less than 15 ml/min Atrioventricular block, Mobitz type 1, Wenckebach CAD (coronary artery disease) Diabetes mellitus with renal manifestation Screening for prostate cancer Screening for colon cancer Diabetes mellitus with coincident hypertension Diabetes mellitus Family History Family History Father Lung cancer Mother Cancer Family history of problems with anesthesia: No Surgical History Surgical History History of surgery History of colonoscopy History of cataract surgery History of coronary artery stent placement History of drainage of abscess History of Problems with Anesthesia: No Social History Social History Household Members: Spouse and Family Housing: House Are you a primary md do resident urgent care to a significant other at home: No Do you presently have visiting nurse or other home services: No Alcohol intake: never Patient Tobacco Use Status: Former Tobacco user Quit Date: 40 years Tobacco use type: Cigarette Smoked in Last 30 Days: No e-Cigarette/Vaping Use: Never Used Second Hand Smoke Exposure: No Use of substances other than those prescribed or required for medical reasons: No Are you DNR?: No Advance Directives: No Advance Directives Information Provided: Yes service: No Current occupational status: retired Cognitive needs: No Hearing needs: No Vision needs: Yes (glasses) Meds Allergies Allergy/AdvReac Type Severity Reaction Status Date / Time No Known Allergies Allergy Mild NONE Verified 03/04/23 06:44 Home Medications Medication Instructions Recorded Confirmed Last Taken Type aspirin 81 mg tablet,delayed 81 mg PO DAILY 06/08/20 03/04/23 03/03/23 11:00 History release (Adult Low Dose Aspirin) calcitriol 0.25 mcg capsule 0.25 mcg PO DAILY 01/30/23 03/04/23 03/03/23 11:00 History Exam Exam Date and Time: March 04, 2023 0720 Height,Weight and Vital Signs: Vital Signs Temperature 97.0 F 03/04/23 06:54 Pulse Rate 50 03/04/23 06:54 Respiratory Rate 16 03/04/23 06:54 Blood Pressure 174/56 H 03/04/23 06:54 Pulse Oximetry 99 03/04/23 06:54 Oxygen Delivery Method Room Air 03/04/23 06:54 Temperature 97.0 F 03/04/23 06:54 Pulse Rate 50 03/04/23 06:54 Respiratory Rate 16 03/04/23 06:54 Blood Pressure 174/56 H 03/04/23 06:54 Pulse Oximetry 99 03/04/23 06:54 Oxygen Delivery Method Room Air 03/04/23 06:54 Height 5 ft 6 in Weight 79.832 kg Airway Mallampati Class: II TM Dist: >3cm Neck ROM: Full Denture: Upper and Lower Heart: S1S2 Lungs: CTAB Assessment and Plan Assessment Anesthesia Assessment: Anesthesia Plan Discussed and Chart Reviewed Final Anesthetic Review Family History of Problems with Anesthesia: No History of Problems with Anesthesia: No NPO: Yes ASA Class: III Final Preanesthetic Review: No Changes in Pt Med Stat, Meds/Allgs Chart Reviewed, Consent Obtained/Reviewed and Anes Risks/Benef Reviewed Patient Risk: Intermediate Procedure Risk: Low Assessment/Block/Sedation in SS: Assess/Block/Sedation-SS Anesthetic Plan Anesthetic Plan: GA, MAC:, Regional Block and Agree w/ Assess. and Plan Disposition: Standard PACU
--- NOTE | 2023-03-04 09:57 | MHC.SHP ---
Pre-Procedural Eval Section A Date of Service: 03/04/23 The patient is an INPATIENT: No Changes since office visit: Yes Patient answered all questions The History & Physical has been completed within 30 days and I have reviewed it.: Yes Section B Chief Complaint: End stage renal disease Allergies: Allergies Allergy/AdvReac Type Severity Reaction Status Date / Time No Known Allergies Allergy Mild NONE Verified 03/04/23 06:44 Plan I have reviewed the history and physical and performed a pertinent physical examination on my patient. No changes have occurred unless specified. Time Spent With Patient Time: Total time managing care of this patient today ____ minutes.
--- NOTE | 2023-03-04 09:58 | W.PM.OPN ---
Operative Note Operative Note Date of Service: 03/04/23 Narrative: Operative note by [facility] Preoperative diagnosis: Chronic renal insufficiency Postoperative diagnosis: Same Procedure: Left arm fistula creation (radiocephalic) Surgeon:Melecio Clancy M.D. Bottle Booth Attendant: Zahra Anesthesia: Block with sedation by Dr. Brown Specimens: None Drains: None Estimated blood loss: 10 ml Indications: 77-year-old gentleman with stage 5 chronic kidney disease presents for permanent dialysis access. The patient has signed the informed consent after reviewing risks, complications, benefits, and alternatives previously discussed with the patient. The patient was given the opportunity to ask any additional questions or voice any concerns. All questions were answered to the patient's satisfaction. Procedure in detail: Patient was brought to the operating room prior to which a time-out was called for patient identification site verification. Left arm was prepped and draped in standard surgical fashion. Using ultrasound guidance we mapped out the cephalic vein and the radial artery. Once this was done arm was prepped and draped and we created a longitudinal incision between the cephalic vein and the radial artery. We dissected down to the cephalic vein and skeletonize this. In a similar fashion we identified the radial artery and skeletonized this as well. These were all isolated with silastic loops. At this time 3000 units of systemic heparin was administered. We ligated the cephalic vein as distal as possible. The end was tied off with a 2-0 silk tie. We then swung the cephalic vein over to the radial artery. We then created an arteriotomy in that radial artery. We then splayed this open with a stay 7 0 Prolene stitch. We circumferentially anastomosed the vein to the artery using a 6 0 Prolene suture the vein had to be trimmed down previous 2 anastomosis. The initial anastomosis we were unable to get an excellent thrill. We will reopen this trimmed the vein down again to get to a healthy year to venous tissue and in a similar fashion reanastomose this. This was flushed cleared prior to closure. Once this was all accomplished deep layer was reapproximated using 2 0 Polysorb superficial layer with 3-0 poly Sorb and finally skin with a 4-0 Monocryl. There was actually a thrill in the cephalic vein at the conclusion. Thank you for allowing us to assist in his care. If there are any questions or concerns please do not hesitate to contact us. This note is constructed using voice recognition software. While every effort has been made to ensure accuracy, typesetter perforator operator errors may have been included. Thank you for allowing me to participate in the care of your patient. Yours sincerely, Melecio Clancy MD, FACS, R.P.V.I.
[2023-03-04 10:00] VITALS: BP 149/57; PULSE 54; RESP 16; TEMP 36.2; O2SAT 98
[2023-03-04 10:15] VITALS: BP 143/65; PULSE 52; RESP 16; O2SAT 98
[2023-03-04 10:39] VITALS: BP 143/55; PULSE 52; RESP 18; TEMP 36.1; O2SAT 99
== END 2023-03-04 11:04 | disposition home or self-care (01) ==
PROVIDERS: PCP Internal Medicine; Visit Provider Surgery Vascular Surgery
PROC: (CPT 36836; principal; 2023-03-04 07:30)
DX: E11.22 Type 2 diabetes mellitus with diabetic chronic kidney disease (principal); N18.5 Chronic kidney disease, stage 5; I10 Essential (primary) hypertension; Z79.82 Long term (current) use of aspirin; Z79.84 Long term (current) use of oral hypoglycemic drugs; Z79.899 Other long term (current) drug therapy; Z87.891 Personal history of nicotine dependence
CPT/HCPCS: 36836; 36415; 80048; 82947; 85027; 93005; A4648; A4649; J0690; J1643; J2795; J3010

== ENCOUNTER → 2023-03-04 06:03 | Outpatient (BNV) | payer MEDICARE, SELFPAY | PROVIDERS: PCP Internal Medicine; Visit Provider Surgery Vascular Surgery | DX: N18.6 End stage renal disease (principal) | CPT/HCPCS: 36836 ==

== ENCOUNTER 2023-03-26 13:38 | Outpatient (AMB) | payer MEDICARE, SELFPAY ==
--- NOTE | 2023-03-26 13:40 | MHC.OFFVIS ---
Intake Intake Visit Reasons: 2 week left arm fistula creation follow up Intake Note: 2 week follow up Left arm fistula creation 03/04/23. Pt states he is doing well, has occasional pain in the wrist Accompanied by: Self / Same As Patient Allergies No Known Allergies Allergy (Mild, Verified 03/26/23 13:41) NONE HPI 2 week left arm fistula creation follow up HPI Details Very pleasant 77-year-old gentleman presents for follow-up with CKD 5. He has undergone left upper extremity radiocephalic fistula creation. He reports it is doing fairly well. He has no significant hand discomfort or pain. He now presents for routine postoperative follow-up. [facility] Medical History (Updated 03/26/23 @ 13:42 by GEORGE Vides) Fistula (03/04/23) CKD (chronic kidney disease) stage 5, GFR less than 15 ml/min Atrioventricular block, Mobitz type 1, Wenckebach CAD (coronary artery disease) Diabetes mellitus with renal manifestation Screening for prostate cancer Screening for colon cancer Diabetes mellitus with coincident hypertension Diabetes mellitus Surgical History History of surgery History of colonoscopy History of cataract surgery History of coronary artery stent placement History of drainage of abscess Family History Father Lung cancer Mother Cancer Social History Household Members: Spouse and Family Housing: House Are you a primary healthcare business analyst to a significant other at home: No Do you presently have visiting nurse or other home services: No Alcohol intake: never Patient Tobacco Use Status: Former Tobacco user Quit Date: 40 years Tobacco use type: Cigarette e-Cigarette/Vaping Use: Never Used Second Hand Smoke Exposure: No service: No Current occupational status: retired Cognitive needs: No Hearing needs: No Vision needs: Yes (glasses) Review of Systems Const All systems reviewed & are unremarkable except as noted in HPI and below Reports no additional complaints ENT Reports Normal hearing present Card Denies chest pain, Denies chest pain at rest, Denies chest pain with activity and Denies pedal edema Resp Denies cough GI Denies abdominal pain Musc Denies abnormal gait, Denies muscle cramps and Denies radiating pain into limb Skin/Breast Denies skin ulcer and Denies wounds Neuro Reports Normal hearing present and Denies abnormal gait Psych Reports no additional complaints Physical Exam Const General: cooperative, healthy appearing and comfortable Orientation/consciousness: oriented to person, oriented to place and oriented to time HEENT Head: Yes normal to inspection Neck Neck: Yes normal visual inspection Carotids: no bruits Chest Chest palpation & inspection: normal inspection of the chest Resp Effort & Inspection: normal respiratory effort and able to speak in complete sentences Auscultation: clear to auscultation bilaterally, no crackles, no rales, no rhonchi and no wheezes Cardio Other: Left forearm excellent thrill and bruit over the proximal portion of the fistula. As he goes further back it becomes more pulsatile and I do suspect there are side branches. Rate: regular rate Rhythm: regular rhythm Heart sounds: S1 normal heart sound present and S2 normal heart sound present Bruits: no carotid bruits Peripheral pulses: Peripheral pulses 2+ throughout GI Inspection: Yes normal to inspection Skin Wounds: no wounds Hair: normal Neuro General: oriented to person, oriented to place and oriented to time Cranial nerves: Yes CN's II-XII intact bilaterally and Yes Normal hearing present Cognition (Neuro): normal cognition Motor exam (neuro): 5/5 motor strength present throughout Extrem Other: venous exam: No significant superficial varicosities or spider telangiectasias, minimal edema General: No clubbing, No cyanosis and No edema Psych Appearance: grossly normal Mental Status: mental status grossly normal Speech and movement: Normal speech and movement present Assessment & Plan Assessment & Plan (1) CKD (chronic kidney disease) stage 5, GFR less than 15 ml/min: Code(s): N18.5 - Chronic kidney disease, stage 5 Plan: In short patient has CKD 5. He has undergone per minute fistula placement. I do hope that a does mature in time for his dialysis. I did schedule a 1 month follow-up as I am concerned that the more distal part becomes mall pulsatile. If that does not improve may need ligation of a side branch. Once again he will follow up with us in approximately 1 months time. Thank you for allowing us to participate in this nice gentleman's care. If there are any questions or concerns please do not hesitate to contact us. Orders: Referrals Nephrology Referral N18.5 - Chronic kidney disease, stage 5 Coding Level of Care Code Global (38947) Diagnoses CKD (chronic kidney disease) stage 5, GFR less than 15 ml/min N18.5
== END 2023-03-26 13:52 | disposition home or self-care (01) ==
PROVIDERS: PCP Internal Medicine; Visit Provider Surgery Vascular Surgery
DX: N18.5 Chronic kidney disease, stage 5 (principal)
CPT/HCPCS: 99213

== ENCOUNTER → 2023-03-26 13:38 | Outpatient (BNVA) | payer MEDICARE, SELFPAY | PROVIDERS: PCP Internal Medicine; Visit Provider Surgery Vascular Surgery | DX: N18.5 Chronic kidney disease, stage 5 (principal) | CPT/HCPCS: 99212 ==

== ENCOUNTER 2023-04-02 14:30 | Outpatient (AMB) | payer MEDICARE, SELFPAY ==
[2023-04-02 14:35] VITALS: BP 130/60; BMI 27.1
--- NOTE | 2023-04-02 14:35 | HO.NEPHOV_ITS ---
HPI HPI Comments History of Present Illness Details Hakeem is a elderly man with longstanding hypertension and advanced CKD. He is approaching end stage renal disease. He has an AV fistula in preparation for hemodialysis in the near future. Today has no new complaints. No nausea vomiting. No shortness of breath. No urinary symptoms. [facility] Medical History (Updated 04/02/23 @ 14:52 by Que Gómez MD) Fistula (03/04/23) CKD (chronic kidney disease) stage 5, GFR less than 15 ml/min Atrioventricular block, Mobitz type 1, Wenckebach CAD (coronary artery disease) Diabetes mellitus with renal manifestation Screening for prostate cancer Screening for colon cancer Diabetes mellitus with coincident hypertension Diabetes mellitus Surgical History (Updated 04/02/23 @ 14:38 by Monserrat Campbell MA) H/O wrist surgery History of surgery History of colonoscopy History of cataract surgery History of coronary artery stent placement History of drainage of abscess Family History Father Lung cancer Mother Cancer Social History Household Members: Spouse and Family Housing: House Are you a primary care transition coordinator to a significant other at home: No Do you presently have visiting nurse or other home services: No Alcohol intake: never Patient Tobacco Use Status: Former Tobacco user Quit Date: 40 years Tobacco use type: Cigarette e-Cigarette/Vaping Use: Never Used Second Hand Smoke Exposure: No service: No Current occupational status: retired Cognitive needs: No Hearing needs: No Vision needs: Yes (glasses) Vital Signs 04/02/23 14:35 Height 5 ft 6 in Weight 168 lb BMI 27.1 BP 130/60 Blood Pressure Location Lt brachial Position Sitting Physical Exam Vital Signs: Last Vital Signs BP 130/60 04/02/23 14:35 BMI result Body Mass Index 27.1 Const General: comfortable; No acute distress Orientation/consciousness: patient oriented x3 Eyes General: appearance normal, both eyes and all related structures Visual Huff: normal visual huff by confrontation Neck Neck: Yes supple and Yes no JVD Resp Effort & Inspection: normal respiratory effort and respiratory effort not decreased Auscultation: rhonchi Cardio Palpation: no palpable S3 and no palpable S4 Heart sounds: no rubs GI Inspection: Yes normal to inspection Palpation (GI): Soft to palpation Percussion: Yes normal to percussion Auscultation: normal bowel sounds General: Yes no CVA tenderness Back/Spine/Pelvis Back: no CVA tenderness Skin General skin exam: no petechiae and no purpura Neuro General: patient oriented x3 and no focal motor deficits Extrem General: No clubbing and No edema Results Reviewed Results Reviewed: Labs reviewed BUN 53 creatinine 4.2 CO2 15 potassium 4.8 Hemoglobin 10.4 Assessment & Plan Assessment & Plan (1) CKD (chronic kidney disease) stage 5, GFR less than 15 ml/min: Code(s): N18.5 - Chronic kidney disease, stage 5 (2) Hypertension: Code(s): I10 - Essential (primary) hypertension (3) Diabetes mellitus with renal manifestation: Code(s): E11.29 - Type 2 diabetes mellitus with other diabetic kidney complication (4) Personal history of colonic polyps: Code(s): Z86.010 - Personal history of colonic polyps Plan Hakeem has advanced CKD approaching end stage renal disease. At this point he has no overt signs or symptoms of uremia. No signs of fluid overload. There is no absolute indication to start hemodialysis yet. I will watch him closely and initiate hemodialysis when it is appropriate. 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 No absolute indication to start him on Epogen yet. I will watch hemoglobin closely and start him on Epogen as indicated. Mild metabolic acidosis if the CO2 drops further I will add sodium bicarb needs to correct acidosis. History of hyperkalemia. At present serum potassium is normal range I will recheck again. Encouraged to stay on a low-potassium diet. Orders: Orders Calcium 5 Weeks N18.5 - Chronic kidney disease, stage 5 Complete Blood Count no Diff 5 Weeks N18.5 - Chronic kidney disease, stage 5 Electrolytes 5 Weeks N18.5 - Chronic kidney disease, stage 5 Blood Urea Nitrogen 5 Weeks N18.5 - Chronic kidney disease, stage 5 Creatinine 5 Weeks N18.5 - Chronic kidney disease, stage 5 Coding Level of Care Code Est Pt Level 4 (45250) Diagnoses CKD (chronic kidney disease) stage 5, GFR less than 15 ml/min N18.5 Hypertension I10 Diabetes mellitus with renal manifestation E11.29 Personal history of colonic polyps Z86.010
== END 2023-04-02 14:56 | disposition home or self-care (01) ==
PROVIDERS: PCP Internal Medicine; Visit Provider Internal Medicine Hypertension Specialist
DX: N18.5 Chronic kidney disease, stage 5 (principal); I12.0 Hypertensive chronic kidney disease with stage 5 chronic kidney disease or end stage renal disease; E11.29 Type 2 diabetes mellitus with other diabetic kidney complication; Z86.010 Personal history of colon polyps
CPT/HCPCS: 99214

== ENCOUNTER → 2023-04-02 14:30 | Outpatient (BNVA) | payer MEDICARE, SELFPAY | PROVIDERS: PCP Internal Medicine; Visit Provider Internal Medicine Hypertension Specialist | DX: N18.5 Chronic kidney disease, stage 5 (principal); I12.0 Hypertensive chronic kidney disease with stage 5 chronic kidney disease or end stage renal disease; E11.22 Type 2 diabetes mellitus with diabetic chronic kidney disease; E11.29 Type 2 diabetes mellitus with other diabetic kidney complication; Z86.010 Personal history of colon polyps | CPT/HCPCS: 99212 ==

== ENCOUNTER 2023-04-16 23:54 | Inpatient (IN) | payer MEDICARE, SELFPAY ==
[2023-04-17] VITALS (11 sets, daily range): BP systolic 120–164; BP diastolic 39–84; PULSE 35–100; RESP 14–19; TEMP 36.1–37; O2SAT 96–100; BMI 27.4
--- NOTE | 2023-04-17 00:01 | ECG_ITS ---
Test Reason : HYPOGYLCEMIA Blood Pressure : / mmHG Vent. Rate : 073 BPM Atrial Rate : 000 BPM P-R Int : 000 ms QRS Dur : 144 ms QT Int : 422 ms P-R-T Axes : 000 -22 169 degrees QTc Int : 464 ms (possible) Atrial fibrillation with premature ventricular or aberrantly conducted complexes - there is baseline artifact Left ventricular hypertrophy with QRS widening and repolarization abnormality ( [place] product ) Cannot rule out Septal infarct , age undetermined Inferior infarct , age undetermined Abnormal ECG When compared with ECG of 04-MAR-2023 06:32, Atrial fibrillation has replaced Sinus rhythm Minimal criteria for Septal infarct are now Present Referred By: Razia Jacob Electronically Signed By:MACKENZIE MICHAEL
[2023-04-17] MEDS: Dextrose 50 % 25 GM/50 ML SYRINGE IVPUSH ×2 (00:05→00:30)
[2023-04-17 00:22] LABS: Glucose, Whole Blood 75 mg/dL (60-115)
--- NOTE | 2023-04-17 00:43 | PC.NURSE ---
pt [facility] per ems pt ams. ems reports unresponsive upon arrival. pt responsive upon arrival to ed. this rn placed 20g IV in R AC. pt tolerated well. pt medicated according to jul. labs and ekg obtained pt placed on site monitor. dr mckinney to bedside. pt awake and oriented pt edita to tolerated po. pt provided with crackers and orange juice with sugar. awaiting lab results at this time
[2023-04-17 00:45] LABS: MANUAL DIFF FLAG NO
[2023-04-17 00:47] LABS: Basophils Percent Auto 0.3 % (0-2); Eosinophils Absolute Auto 0.1 X10*3/uL (0.0-0.4); Eosinophils Percent Auto 0.9 % (0-4); Hematocrit 29.9 % (42.0-52.0); Hemoglobin 9.2 g/dl (14.0-18.0); Imm Gran Abs Auto 0.02 X10*3/uL (0.00-0.03); Imm Gran Pct Auto 0.3 % (0.0-0.4); Lymphocytes Absolute Auto 0.7 X10*3/uL (1.2-4.9); Lymphocytes Percent Auto 10.7 % (20-40); Mean Corpuscular HGB Conc 30.8 g/dl (31.0-36.0); Mean Corpuscular Hemoglobin 26.2 pg (27.0-33.0); Mean Corpuscular Volume 85.2 fL (80.0-98.0); Mean Platelet Volume 10.6 fL (9.4-12.4); Monocytes Absolute Auto 0.3 X10*3/uL (0.1-1.2); Monocytes Percent Auto 4.1 % (2-11); Neutrophils Absolute Auto 5.7 x10*3/uL (2.0-8.3); Neutrophils Percent Auto 83.7 % (45-73); Platelet Count 122 X10*3/uL (160-400); Red Blood Count 3.51 X10*6/uL (4.60-5.80); Red Cell Distribution Width 14.6 % (11.0-16.0); White Blood Count 6.8 X10*3/uL (4.8-10.8)
[2023-04-17 00:52] LABS: Glucose, Whole Blood 181 mg/dL (60-115)
--- NOTE | 2023-04-17 00:52 | ED_ITS ---
HPI - General Adult General Chief complaint: General Medical Stated complaint: unresponsive low blood sugar Time Seen by Provider: 04/17/23 00:01 Source: patient and EMS Mode of arrival: EMS History of Present Illness HPI narrative: Is a 77-year-old male with known history of CKD, diabetes cough and is brought in by EMS from home where patient's daughter found the patient unresponsive in bed and point of care on EMS arrival was 33. EMS was unable to establish venous access but gave patient 1 mg glucagon IM. Patient arousable on arrival to the emergency room and denies any use of insulin. Related Data Home Medications Medication Instructions Recorded Confirmed aspirin 81 mg tablet,delayed 81 mg PO DAILY 06/08/20 03/04/23 release (Adult Low Dose Aspirin) calcitriol 0.25 mcg capsule 0.25 mcg PO DAILY 01/30/23 03/04/23 Previous Rx's Medication Instructions Recorded alcohol swabs 1 pad topical QIDACHS #100 ea 01/30/23 amlodipine 5 mg tablet (Norvasc) 5 mg PO DAILY #30 tabs 01/30/23 carvedilol 3.125 mg tablet (Coreg) 3.125 mg PO BID #60 tabs 01/30/23 blood sugar diagnostic (OneTouch #100 ea 02/07/23 Ultra Test strips) blood-glucose meter (OneTouch #1 ea 02/07/23 Ultra2 Meter) lancets 30 gauge (OneTouch #100 ea 02/07/23 UltraSoft 2 Lancet) Allergies Allergy/AdvReac Type Severity Reaction Status Date / Time No Known Allergies Allergy Mild NONE Verified 04/02/23 14:35 Review of Systems 2 Review of Systems: Pertinent positives and negatives as stated in HPI [facility] Past Medical History Source: nursing notes reviewed Medical History Fistula (03/04/23) CKD (chronic kidney disease) stage 5, GFR less than 15 ml/min Atrioventricular block, Mobitz type 1, Wenckebach CAD (coronary artery disease) Diabetes mellitus with renal manifestation Screening for prostate cancer Screening for colon cancer Diabetes mellitus with coincident hypertension Diabetes mellitus Surgical History H/O wrist surgery History of surgery History of colonoscopy History of cataract surgery History of coronary artery stent placement History of drainage of abscess Family History Family History Father Lung cancer Mother Cancer Social History Social History Household Members: Spouse and Family Housing: House Are you a primary career development director to a significant other at home: No Do you presently have visiting nurse or other home services: No Alcohol intake: never Patient Tobacco Use Status: Former Tobacco user Quit Date: 40 years Tobacco use type: Cigarette Smoked in Last 30 Days: No e-Cigarette/Vaping Use: Never Used Second Hand Smoke Exposure: No Use of substances other than those prescribed or required for medical reasons: No Advance Directives: No Advance Directives Information Provided: Yes service: No Current occupational status: retired Cognitive needs: No Hearing needs: No Vision needs: Yes (glasses) Physical Exam ED Vital Signs: Vital Signs - 24 hr 04/17/23 00:08 Pulse Rate 86 Respiratory Rate 18 Blood Pressure 123/84 Pulse Oximetry 100 Oxygen Delivery Method Room Air BMI result Body Mass Index 27.4 VITAL SIGNS: Reviewed. GENERAL: Well developed, well nourished, in no acute distress. HEAD: Normocephalic/atraumatic EYES: PERRLA, EOMI EARS: Ext canals without abnormality NOSE: Nares patent bilateral OROPHARYNX: no oral lesions noted, posterior pharynx clear NECK: Supple, no adenopathy LUNGS: Normal breath sounds. No adventitious sounds or accessory muscle use. SpO2<100> CARDIOVASCULAR: Regular rate and rhythm without noted murmurs, no JVD or lower extremity edema. ABDOMEN: Soft, non-tender, non-distended with bowel sounds. MUSCULOSKELETAL: No tenderness, deformities, or effusions noted on gross inspection. EXTREMITIES: No cyanosis, clubbing or edema. LUE: Radial fistula with good thrill and bruit SKIN: Inspection of the skin reveals no rashes NEUROLOGIC: Alert and oriented x 4. Strength and sensation to light touch were grossly intact x 4. Medications Administered Discontinued Medications Generic Name Dose Route Start Last Admin Trade Name Freq PRN Reason Stop Dose Admin Dextrose 25 gm 04/17/23 00:00 04/17/23 00:05 Dextrose 50 % 25 Gm/50 Ml Syringe IVPUSH 04/17/23 00:01 25 gm ONCE ONE Administration Dextrose 25 gm 04/17/23 00:25 04/17/23 00:30 Dextrose 50 % 25 Gm/50 Ml Syringe IVPUSH 04/17/23 00:26 25 gm ONCE ONE Administration Medical Decision Making Medical Decision Making [facility] Narrative: 77-year-old male with history and clinical presentation, DDX: Hypoglycemia secondary to medication/poor diet intake as patient states he is compliant with all medications and denies any recent illnesses. Patient does inform me that he recently underwent fistula creation in March, he also states that his diabetic medication was recently changed and on review of documentation appears that he was switched from metformin to glipizide. In addition, I reviewed vascular surgery documentation which outlines creation left radial fistula 04/04. Patient required a total 2-D 50 with good results. I reviewed all investigations and hematologic indices demonstrate a stable normocytic anemia but no leukocytosis, there is a noted left shift of unclear significance as patient is otherwise afebrile and has no complaints about cough for urinary symptoms. There is a noted thrombocytopenia that patient appears to experience occasionally. On review of chemistry indices there is a pseudohyponatremia secondary to elevated sugar level that is clearly reflective of having received 2 amps of D50. Otherwise patient has chronically stable CKD without hyperkalemia and the noted acidosis is likely secondary to the CKD. Liver enzymes are otherwise within normal limits. My interpretation is patient has suffered a hypoglycemic event secondary to glipizide use in advance kidney disease although this is the recommended oral medication for his condition. However, in general this medication is known to cause hypoglycemic events. I discussed the case with a colleague to on review of UpToDate recommendations is for admission and observation for 24 hours. I called patient's daughter and discussed all results, findings and the fact that her father would be admitted and observed for approximately 24 hours. 0208: I discussed case with inpatient hospitalist who accepts admission. Differential Diagnosis Differential Diagnoses: The differential diagnosis associated with the presentation includes Please see the discussion above Admission/Observation Consideration of admission/observation: Escalation of care including admission/observation considered Please see the discussion above Consult Healthcare Provider Management of the patient was discussed with: Hospitalist Please see the discussion above Lab Data [facility] Lab Attestation statement: I reviewed the patient's lab results. Please see the discussion above 04/17/23 00:39 04/17/23 00:39 Labs: Lab Results 04/17/23 04/17/23 04/17/23 Range/Units 00:17 00:39 00:48 WBC 6.8 (4.8-10.8) X10*3/uL RBC 3.51 L (4.60-5.80) X10*6/uL Hgb 9.2 L (14.0-18.0) g/dl Hct 29.9 L (42.0-52.0) % MCV 85.2 (80.0-98.0) fL MCH 26.2 L (27.0-33.0) pg MCHC 30.8 L (31.0-36.0) g/dl RDW 14.6 (11.0-16.0) % Plt Count 122 L D (160-400) X10*3/uL MPV 10.6 (9.4-12.4) fL Immature Gran % (Auto) 0.3 (0.0-0.4) % Neut % (Auto) 83.7 H (45-73) % Lymph % (Auto) 10.7 L (20-40) % [facility] % (Auto) 4.1 (2-11) % Eos % (Auto) 0.9 (0-4) % Baso % (Auto) 0.3 (0-2) % Lymph # (Auto) 0.7 L (1.2-4.9) X10*3/uL [facility] # (Auto) 0.3 (0.1-1.2) X10*3/uL Eos # (Auto) 0.1 (0.0-0.4) X10*3/uL Baso # (Auto) 0.0 (0.0-0.2) X10*3/uL Abs Immat Gran (auto) 0.02 (0.00-0.03) X10*3/uL Absolute Neuts (auto) 5.7 (2.0-8.3) x10*3/uL Absolute Nucleated RBC 0.000 (0.0-0.012) X10*3/uL Nucleated RBC % (auto) 0.0 (0.0-0.2) /100WBC Sodium 131 L (135-145) mmol/L Potassium 4.4 (3.3-5.1) mmol/L Chloride 107 (96-108) mmol/L Carbon Dioxide 11 L (22-29) mmol/L Anion Gap 17 (12-20) BUN 66 H (9-16) mg/dL Creatinine 4.39 H* (0.5-1.4) mg/dL Estim Creat Clear Calc 13.9 Estimated GFR 13 POC Glucose 75 181 H (60-115) mg/dL Random Glucose 235 H (60-115) mg/dL Calcium 8.2 L D (8.4-10.2) mg/dL Total Bilirubin 0.4 (0.0-1.0) mg/dL AST 24 (5-37) U/L ALT 12 (0-40) U/L Alkaline Phosphatase 69 (39-117) U/L Total Protein 6.1 L (6.5-8.0) g/dL Albumin 3.2 L (3.5-5.0) g/dL 04/17/23 Range/Units 01:34 WBC (4.8-10.8) X10*3/uL RBC (4.60-5.80) X10*6/uL Hgb (14.0-18.0) g/dl Hct (42.0-52.0) % MCV (80.0-98.0) fL MCH (27.0-33.0) pg MCHC (31.0-36.0) g/dl RDW (11.0-16.0) % Plt Count (160-400) X10*3/uL MPV (9.4-12.4) fL Immature Gran % (Auto) (0.0-0.4) % Neut % (Auto) (45-73) % Lymph % (Auto) (20-40) % [facility] % (Auto) (2-11) % Eos % (Auto) (0-4) % Baso % (Auto) (0-2) % Lymph # (Auto) (1.2-4.9) X10*3/uL [facility] # (Auto) (0.1-1.2) X10*3/uL Eos # (Auto) (0.0-0.4) X10*3/uL Baso # (Auto) (0.0-0.2) X10*3/uL Abs Immat Gran (auto) (0.00-0.03) X10*3/uL Absolute Neuts (auto) (2.0-8.3) x10*3/uL Absolute Nucleated RBC (0.0-0.012) X10*3/uL Nucleated RBC % (auto) (0.0-0.2) /100WBC Sodium (135-145) mmol/L Potassium (3.3-5.1) mmol/L Chloride (96-108) mmol/L Carbon Dioxide (22-29) mmol/L Anion Gap (12-20) BUN (9-16) mg/dL Creatinine (0.5-1.4) mg/dL Estim Creat Clear Calc Estimated GFR POC Glucose 257 H (60-115) mg/dL Random Glucose (60-115) mg/dL Calcium (8.4-10.2) mg/dL Total Bilirubin (0.0-1.0) mg/dL AST (5-37) U/L ALT (0-40) U/L Alkaline Phosphatase (39-117) U/L Total Protein (6.5-8.0) g/dL Albumin (3.5-5.0) g/dL Independent Interpretation I performed an independent interpretation of an: EKG Interpretation: Questionable atrial fibrillation with PVCs, HR-73, no STEMI, ST findings in lateral leads consistent with prior EKG. Patient was also noted to have AV block on prior EKG Radiology Impression Discussion of test interpretation with radiology: I have reviewed the radiologist's reading. External Record Review External record reviewed: Office record, Outpatient record, Prior outpatient labs and Prior outpatient radiology Chronic Conditions Patient?s care impacted by: Diabetes, Hypertension and Other CKD Critical Care Time Critical Care Time Critical Care Time: Yes Total Critical Care Time: 60 Attestation: I personally attest to this time spent taking care of the patient. Discharge Plan Discharge Clinical Impression: Hypoglycemia, CKD (chronic kidney disease) Patient Disposition: Admitted As Inpatient Prescriptions: No Action (DME) blood-glucose meter [OneTouch Ultra2 Meter] Misc See Rx Instructions .Route Qty: 1 0RF Rx Instructions: check once per day (DME) OneTouch Ultra Test Strip See Rx Instructions .Route Qty: 100 4RF Rx Instructions: check once per day (DME) lancets [OneTouch UltraSoft 2 Lancet] 30 gauge misc See Rx Instructions .Route Qty: 100 4RF Rx Instructions: check once per day calcitriol 0.25 mcg capsule 0.25 mcg PO DAILY alcohol swabs Pads, Medicated 1 pad TOPICAL QIDACHS Qty: 100 0RF Rx Instructions: Use four times a day or as directed. carvedilol [Coreg] 3.125 mg tablet 3.125 mg PO BID Qty: 60 0RF Rx Instructions: must administer with a meal/food amlodipine [Norvasc] 5 mg tablet 5 mg PO DAILY Qty: 30 0RF aspirin [Adult Low Dose Aspirin] 81 mg tablet,delayed release (DR/EC) 81 mg PO DAILY
[2023-04-17 01:06] LABS: Alanine Aminotransferase 12 U/L (0-40); Albumin Level 3.2 g/dL (3.5-5.0); Alkaline Phosphatase 69 U/L (39-117); Anion Gap 17 (12-20); Aspartate Amino Transferase 24 U/L (5-37); Bilirubin Total 0.4 mg/dL (0.0-1.0); Blood Urea Nitrogen 66 mg/dL (9-16); Calcium 8.2 mg/dL (8.4-10.2); Carbon Dioxide 11 mmol/L (22-29); Chloride 107 mmol/L (96-108); Creatinine Clr Calc Pharmacy 13.9; Estimated Glomerular Filt Rate 13; Glucose Random 235 mg/dL (60-115); Potassium 4.4 mmol/L (3.3-5.1); Sodium 131 mmol/L (135-145); Total Protein 6.1 g/dL (6.5-8.0)
[2023-04-17 01:38] LABS: Glucose, Whole Blood 257 mg/dL (60-115)
--- NOTE | 2023-04-17 01:44 | ECG_ITS ---
Test Reason : HYPOGYLCEMIA Blood Pressure : / mmHG Vent. Rate : 055 BPM Atrial Rate : 077 BPM P-R Int : 000 ms QRS Dur : 132 ms QT Int : 512 ms P-R-T Axes : 048 -31 183 degrees QTc Int : 489 ms Sinus rhythm with 2nd degree A-V block (Mobitz I) Left axis deviation Left ventricular hypertrophy with QRS widening and repolarization abnormality ( [place] product ) Abnormal ECG When compared with ECG of 17-APR-2023 00:25, Sinus rhythm has replaced Atrial fibrillation T wave inversion anterior leads more prominent Referred By: Razia Jacob Electronically Signed By:MACKENZIE MICHAEL
--- NOTE | 2023-04-17 03:03 | PC.NURSE ---
@ 0245 HR 35, HR returned to low 50s once pt arroused. dr lopez made aware, no new orders md to review current ekgs and states will be presenting to ed to evaluate pt
--- NOTE | 2023-04-17 03:07 | PC.NURSE ---
med rec performed by this rn utilizing pt medical record and pt
[2023-04-17 03:09] LABS: Glucose, Whole Blood 199 mg/dL (60-115)
--- NOTE | 2023-04-17 04:25 | P.HPHOSP_ITS ---
History of Present Illness Date of Service: 04/17/23 Attending physician on admission: Jose Carlos Pablo Chief Complaint: Unresponsive at home this evening Patient is a 77 year old white male with history of stage 5 CKD, type 2 diabetes mellitus for which he is on Glipizide who is brought to the emergency room from home for evaluation after he was found unconscious in bed. He last remembers going to bed and the next time he came around, he was surrounded by EMT. Review of triage notes show that EMT was called to scene where on arrival, they found him unresponsive in bed with a blood sugar of 33. They administered 1 mg of IM Glucagon with good response and he was more responsive upon arrival to ED but still hypoglycemic and so received a total of 50 gm of D50. He was awake and alert and at his baseline when I got to see him. Initial work up done in the emergency room (after receiving 50 gm of D50) was notable for mild hyperglycemia with a blood sugar of 235 mg/dl and stable stage 5 CKD with a BUN of 66 and creatinine of 4.39. His blood sugar have since remained stable. Review of Systems 2 Review of Systems: Yes all other systems are reviewed and are negative [facility] Medical History Fistula (03/04/23) CKD (chronic kidney disease) stage 5, GFR less than 15 ml/min Atrioventricular block, Mobitz type 1, Wenckebach CAD (coronary artery disease) Diabetes mellitus with renal manifestation Screening for prostate cancer Screening for colon cancer Diabetes mellitus with coincident hypertension Diabetes mellitus Family History Father Lung cancer Mother Cancer Surgical History H/O wrist surgery History of surgery History of colonoscopy History of cataract surgery History of coronary artery stent placement History of drainage of abscess Social History Household Members: Spouse and Family Housing: House Are you a primary health care legal assistant to a significant other at home: No Do you presently have visiting nurse or other home services: No Alcohol intake: never Patient Tobacco Use Status: Former Tobacco user Quit Date: 40 years Tobacco use type: Cigarette Smoked in Last 30 Days: No e-Cigarette/Vaping Use: Never Used Second Hand Smoke Exposure: No Use of substances other than those prescribed or required for medical reasons: No Advance Directives: No Advance Directives Information Provided: Yes service: No Current occupational status: retired Cognitive needs: No Hearing needs: No Vision needs: Yes (glasses) Meds Allergies Allergy/AdvReac Type Severity Reaction Status Date / Time No Known Allergies Allergy Mild NONE Verified 04/02/23 14:35 Home Medications Medication Instructions Recorded Confirmed Last Taken Type aspirin 81 mg tablet,delayed 81 mg PO DAILY 06/08/20 03/04/23 03/03/23 11:00 History release (Adult Low Dose Aspirin) calcitriol 0.25 mcg capsule 0.25 mcg PO DAILY 01/30/23 04/17/23 03/03/23 11:00 History glipizide 5 mg tablet, extended 5 mg PO DAILY 04/17/23 04/17/23 Unknown History release 24 hr Physical Exam 2 Vital Signs and Narrative: Vital Signs: Last Vital Signs Temp 97.6 F 04/17/23 02:02 Pulse 35 L 04/17/23 02:48 Resp 17 04/17/23 02:37 BP 144/47 H 04/17/23 02:37 Pulse Ox 100 04/17/23 02:37 O2 Del Method Room Air 04/17/23 02:37 BMI result Body Mass Index 27.4 General: Well nourished elderly WM in bed. Awake and alert. In no apparent distress Eyes: No pallor or jaundice. PERRLA, EOMI HENT: Moist oral mucus membranes. No oropharyngeal lesions. Neck: Supple. No cervical adenopathy. No JVD Cardiovascular: Bradycardic but regular rate and rhythm. Normal heart sounds. No murmurs, rubs or gallops. No JVD. No peripheral edema. Respiratory: Normal respiratory effort with no accessory muscle use. CTAB. Gastrointestinal: Abdomen is soft, non-tender, non-distended. NABS. No hepatosplenomegaly Extremities: No edema. No calf tenderness. Good peripheral pulses Skin - Warm/Dry. No rashes. No mottling. Capillary refill is < 2 seconds Neurological - AAOx4. Intact speech & cognition. Moves all extremities spontaneously. CN II - XII grossly intact but not individually tested. No motor or sensory deficits Hematologic: No bleeding. No ecchymosis. No swollen or tender lymph nodes. Psychiatric: Cooperative. Appropriate mood and affect . Results Labs 04/17/23 00:39 04/17/23 00:39 Labs: Laboratory Results - last 24 hr 04/17/23 04/17/23 12 00:17 00:39 00:48 MCV 85.2 MCH 26.2 L MCHC 30.8 L RDW 14.6 Plt Count 122 L D MPV 10.6 Immature Gran % (Auto) 0.3 Neut % (Auto) 83.7 H Lymph % (Auto) 10.7 L [place] % (Auto) 4.1 Eos % (Auto) 0.9 Baso % (Auto) 0.3 Lymph # (Auto) 0.7 L [place] # (Auto) 0.3 Eos # (Auto) 0.1 Baso # (Auto) 0.0 Abs Immat Gran (auto) 0.02 Absolute Neuts (auto) 5.7 Absolute Nucleated RBC 0.000 Nucleated RBC % (auto) 0.0 Anion Gap 17 Estim Creat Clear Calc 13.9 Estimated GFR 13 POC Glucose 75 181 H Random Glucose 235 H Calcium 8.2 L D Total Bilirubin 0.4 AST 24 ALT 12 Alkaline Phosphatase 69 Total Protein 6.1 L Albumin 3.2 L 04/17/23 04/17/23 01:34 03:05 MCV MCH MCHC RDW Plt Count MPV Immature Gran % (Auto) Neut % (Auto) Lymph % (Auto) [place] % (Auto) Eos % (Auto) Baso % (Auto) Lymph # (Auto) [place] # (Auto) Eos # (Auto) Baso # (Auto) Abs Immat Gran (auto) Absolute Neuts (auto) Absolute Nucleated RBC Nucleated RBC % (auto) Anion Gap Estim Creat Clear Calc Estimated GFR POC Glucose 257 H 199 H Random Glucose Calcium Total Bilirubin AST ALT Alkaline Phosphatase Total Protein Albumin ECG Interpretation: EKG #1 (00:25:34) => AFib with PVCs. LVH Qwaves in the inferior and septal leads EKG #2 (02:00:43) => Sinus rhythm with Mobitz ! block; LVH; TWI in anterior leads Assessment and Plan (1) Hypoglycemia: Status: Acute (2) CKD (chronic kidney disease) stage 5, GFR less than 15 ml/min: Status: Acute (3) Bradycardia: Status: Acute Plan 77 year old white male with history of stage 5 CKD, type 2 diabetes mellitus for which he is on Glipizide here with 1. Hypoglycemic coma - secondary to Glipizide use for treatment of T2DM in setting of CKD V - noted to be persistently hypoglycemic while in the ED despite receiving 50 gm of D50 - stop Glipizide for now - closely monitor blood sugars for the next 24 hours 2. Bradycardia - noted to be bradycardic on telemetry - will decrease dose of Carvedilol 3. Stage 5 CKD - stable - continue outpatient Nephrology follow up DVT: SCD's CODE STATUS: Full code Admission for at least 2 midnights for management of Hypoglycemic come in setting of Glipizide use in stage 5 CKD Total time managing care of this patient today: 75 minutes. Quality Stroke Does the patient have a stroke diagnosis?: No VTE Prior VTE?: No VTE Risk Level:: Medical - moderate - high VTE Device Contraindication: N/A - Device Ordered VTE Drug Contraindication: N/A - Med Ordered
[2023-04-17] MEDS: Dextrose 5 % and 0.9 % NaCl 1,000 ML 100 ML IVCONT (05:03)
[2023-04-17 05:46] LABS: Glucose, Whole Blood 119 mg/dL (60-115)
[2023-04-17 06:15] LABS: Anion Gap 16 (12-20); Blood Urea Nitrogen 68 mg/dL (9-16); Calcium 8.6 mg/dL (8.4-10.2); Carbon Dioxide 14 mmol/L (22-29); Chloride 109 mmol/L (96-108); Creatinine Clr Calc Pharmacy 13.8; Estimated Glomerular Filt Rate 13; Glucose Random 133 mg/dL (60-115); Sodium 134 mmol/L (135-145)
[2023-04-17 06:28] LABS: Glucose, Whole Blood 119 mg/dL (60-115)
[2023-04-17 07:52] LABS: Glucose, Whole Blood 102 mg/dL (60-115)
[2023-04-17 08:03] LABS: Estimated Average Glucose 88 mg/dL; Hemoglobin A1c % 4.7 % (<6.0)
--- NOTE | 2023-04-17 08:09 | PHA.MEDREC ---
Pharmacy Consult ? Medication Reconciliation Pharmacy has completed the medication reconciliation. Patient confirmed aspirin and calcitriol doses
[2023-04-17] MEDS: carvediloL 3.125 MG TABLET PO (08:19)
[2023-04-17] MEDS: amLODIPine Besylate 5 MG TABLET PO (08:19)
--- NOTE | 2023-04-17 08:24 | PC.NURSE ---
pt is alert and oriented, skin pwd, respirations even and unlabored, ls clear, this rn noticed old bruising on the mid/upper back area- pt does not know how they got there- denies falling, pt denies pain, reports feeling better, vs stable and ns with 2nd degree block pt set up with his breakfast francisco j
--- NOTE | 2023-04-17 09:23 | MHC.CM.PN ---
PT REPORTS HE LIVES WITH HIS AND DAUGHTER AND IS INDEPENDENT WITH CARE HE HAD NO DME AND NO SERVICES [employer] HE REPORTS HE HAS A HCP NAMING HIS AND DAUGHTER HIS AGENTS, COPY REQUESTED PC: [facility] DELIVERED DCP: HOME NO SERVICES VS HOME WITH [facility] FAM[facility] TO TRANSPORT
[2023-04-17 11:33] LABS: Glucose, Whole Blood 83 mg/dL (60-115)
--- NOTE | 2023-04-17 11:56 | PM.EVENT ---
Event Note Date of Service: 04/17/23 Event Note: 77 year old white male with history of stage 5 CKD, type 2 diabetes mellitus for which he is on Glipizide admitted for hypoglycemic coma Hypoglycemic coma secondary to Glipizide use for treatment of T2DM in setting of CKD V stop Glipizide s/p D5ns A1C 4.7 closely monitor blood sugars for the next 24 hours Bradycardia. Resolved noted to be bradycardic on telemetry on carvedilol Stage 5 CKD stable continue outpatient Nephrology follow up DVT: SCD's CODE STATUS: Full code Admission for at least 2 midnights for management of Hypoglycemic come in setting of Glipizide use in stage 5 CKD, requires close monitoring of BS to avoid further episodes of hypoglycemia. Time Spent With Patient Time: Total time managing care of this patient today ____ minutes.
[2023-04-17 13:52] LABS: Glucose, Whole Blood 72 mg/dL (60-115)
[2023-04-17 16:21] LABS: Glucose, Whole Blood 104 mg/dL (60-115)
[2023-04-17 16:25] LABS: Appearance Urine Cloudy; Color Urine Yellow; Glucose Urine UA 100 mg/dL (Negative); Leukocyte Esterase Urine Trace (Negative); Nitrite Urine Negative (Negative); UMIC TRIGGER UACC YES; Urine Blood Negative (Negative); Urine Ketones Negative (Negative); Urine Protein 100 (2+) mg/dL (Neg-Trace)
[2023-04-17 16:40] LABS: Bacteria Urine None Seen (None Seen); RBC Urine 0-2 /HPF (0-2); WBC Urine 0-5 /HPF (0-5)
[2023-04-17] MEDS: 0.9 % Sodium Chloride Flush 3 ML SYRINGE IVFLUSH (17:47)
[2023-04-17 19:17] LABS: Glucose, Whole Blood 63 mg/dL (60-115)
--- NOTE | 2023-04-17 19:22 | PC.NURSE ---
POC continues to trend down despite eating 100% of meals - asymptomatic, provider notified, other vss, pt a&o x4.
[2023-04-17 20:45] LABS: Glucose, Whole Blood 115 mg/dL (60-115)
[2023-04-17 22:47] LABS: Glucose, Whole Blood 112 mg/dL (60-115)
[2023-04-18 03:35] VITALS: BP 156/72; PULSE 88; RESP 16; TEMP 36.3; O2SAT 98
[2023-04-18 05:06] LABS: Glucose, Whole Blood 79 mg/dL (60-115)
[2023-04-18 07:04] LABS: Glucose, Whole Blood 74 mg/dL (60-115)
[2023-04-18 07:08] VITALS: BP 138/65; PULSE 76; RESP 20; TEMP 36.5; O2SAT 99
[2023-04-18 07:45] LABS: Glucose, Whole Blood 76 mg/dL (60-115)
[2023-04-18 08:59] LABS: Glucose, Whole Blood 80 mg/dL (60-115)
[2023-04-18] MEDS: 0.9 % Sodium Chloride Flush 3 ML SYRINGE IVFLUSH (09:14)
[2023-04-18] MEDS: carvediloL 3.125 MG TABLET PO (09:14)
[2023-04-18] MEDS: amLODIPine Besylate 5 MG TABLET PO (09:14)
[2023-04-18 10:57] LABS: Glucose, Whole Blood 150 mg/dL (60-115)
[2023-04-18 10:59] VITALS: BP 138/64; PULSE 72; RESP 20; TEMP 36.6; O2SAT 100
[2023-04-18 12:44] LABS: Hematocrit 30.9 % (42.0-52.0); Hemoglobin 9.8 g/dl (14.0-18.0); Mean Corpuscular HGB Conc 31.7 g/dl (31.0-36.0); Mean Corpuscular Hemoglobin 26.5 pg (27.0-33.0); Mean Corpuscular Volume 83.5 fL (80.0-98.0); Platelet Count 129 X10*3/uL (160-400); Red Cell Distribution Width 14.9 % (11.0-16.0); White Blood Count 8.9 X10*3/uL (4.8-10.8)
--- NOTE | 2023-04-18 13:08 | P.DS_ITS ---
DS: Providers Provider Date of Service: 04/18/23 Date of admission: 04/17/23 04:19 Date of discharge: 04/18/23 Primary care physician: Severo Estes MD Attending physician on discharge: [facility] Discharging clinician: Lola Harp DS: Diagnosis Discharge Diagnosis (1) Hypoglycemia: Status: Acute (2) CKD (chronic kidney disease) stage 5, GFR less than 15 ml/min: Status: Acute (3) Bradycardia: Status: Acute DS: Summary Hospital Course Hospital Course: From H&P on day of admission Patient is a 77 year old white male with history of stage 5 CKD, type 2 diabetes mellitus for which he is on Glipizide who is brought to the emergency room from home for evaluation after he was found unconscious in bed. He last remembers going to bed and the next time he came around, he was surrounded by EMT. Review of triage notes show that EMT was called to scene where on arrival, they found him unresponsive in bed with a blood sugar of 33. They administered 1 mg of IM Glucagon with good response and he was more responsive upon arrival to ED but still hypoglycemic and so received a total of 50 gm of D50. He was awake and alert and at his baseline when I got to see him. Initial work up done in the emergency room (after receiving 50 gm of D50) was notable for mild hyperglycemia with a blood sugar of 235 mg/dl and stable stage 5 CKD with a BUN of 66 and creatinine of 4.39. His blood sugar have since remained stable. hypoglycemia secondary to Glipizide use for treatment of T2DM in setting of CKD V. Glipizide was stopped. He was treated with D5NS and then taken off fluid. His Hba1c was 4.7. His blood sugar has remained stable off of d5. Glipizide will be discontinued. Recommend outpatient follow up with PCP. Has glucometer at home to check blood sugar and has as appointment with PCP coming up. bradycardia. likely due to hypoglycemia. HR has improved from the 40s but still on lower s audra, but patient asymptomatic. patient was ambulated with increase in HR to the 80s and remained asymptomatic. Mobitz 1 noted on EKG is chronic. Time Attestation Discharge coordination time: Greater than 30 minutes Quality: Safe Use of Opioids Does Pt have an Active Cancer Diagnosis on the Problem List?: No Quality: Stroke Does the patient have a stroke diagnosis?: No Physical Exam Vital Signs: Vital Signs: Last Vital Signs Temp 97.9 F 04/18/23 10:59 Pulse 72 04/18/23 10:59 Resp 20 04/18/23 10:59 BP 138/64 04/18/23 10:59 Pulse Ox 100 04/18/23 10:59 O2 Del Method Room Air 04/18/23 10:59 BMI result Body Mass Index 27.4 Const: General: cooperative, comfortable, no acute distress, alert and awake Cardio: Rate: regular rate GI: Palpation (GI): nontender Neuro: General: moves all extremities and CN's II-XI intact bilaterally Extrem: General: Yes no pedal edema DS: Data Data Completed and Pending Labs on day of discharge: Laboratory Results - last 24 hr 04/17/23 04/17/23 04/17/23 13:47 16:14 16:16 WBC RBC Hgb Hct MCV MCH MCHC RDW Plt Count MPV Absolute Nucleated RBC Nucleated RBC % (auto) POC Glucose 72 104 Urine Color Yellow Urine Appearance Cloudy Urine pH 5.0 Ur Specific [place] 1.010 Urine Protein 100 (2+) H Urine Glucose (UA) 100 H Urine Ketones Negative Urine Blood Negative Urine Nitrite Negative Ur Leukocyte Esterase Trace H Urine RBC 0-2 Urine WBC 0-5 Ur Squamous Epith Cells 3-5 Urine Bacteria None Seen Hyaline Casts 6-10 04/17/23 04/17/23 04/17/23 19:14 20:35 22:28 WBC RBC Hgb Hct MCV MCH MCHC RDW Plt Count MPV Absolute Nucleated RBC Nucleated RBC % (auto) POC Glucose 63 115 112 Urine Color Urine Appearance Urine pH Ur Specific [place] Urine Protein Urine Glucose (UA) Urine Ketones Urine Blood Urine Nitrite Ur Leukocyte Esterase Urine RBC Urine WBC Ur Squamous Epith Cells Urine Bacteria Hyaline Casts 04/18/23 04/18/23 04/18/23 03:34 06:57 07:41 WBC RBC Hgb Hct MCV MCH MCHC RDW Plt Count MPV Absolute Nucleated RBC Nucleated RBC % (auto) POC Glucose 79 74 76 Urine Color Urine Appearance Urine pH Ur Specific [place] Urine Protein Urine Glucose (UA) Urine Ketones Urine Blood Urine Nitrite Ur Leukocyte Esterase Urine RBC Urine WBC Ur Squamous Epith Cells Urine Bacteria Hyaline Casts 04/18/23 04/18/23 04/18/23 08:55 10:50 12:17 WBC 8.9 RBC 3.70 L Hgb 9.8 L Hct 30.9 L MCV 83.5 MCH 26.5 L MCHC 31.7 RDW 14.9 Plt Count 129 L MPV 11.0 Absolute Nucleated RBC 0.000 Nucleated RBC % (auto) 0.0 POC Glucose 80 150 H Urine Color Urine Appearance Urine pH Ur Specific [place] Urine Protein Urine Glucose (UA) Urine Ketones Urine Blood Urine Nitrite Ur Leukocyte Esterase Urine RBC Urine WBC Ur Squamous Epith Cells Urine Bacteria Hyaline Casts Discharge Plan Discharge Anticipated Discharge Date/Time: 04/18/23 13:43 Patient Disposition: Home, Self-Care Discharge Diagnosis: hypoglycemia bradycardia Referrals: Severo Estes MD [Primary Care Provider] - 1 Week Discharge Medications: Continued calcitriol 0.25 mcg capsule 0.25 mcg PO DAILY carvedilol [Coreg] 3.125 mg tablet 3.125 mg PO BID Qty: 60 0RF Rx Instructions: must administer with a meal/food amlodipine [Norvasc] 5 mg tablet 5 mg PO DAILY Qty: 30 0RF aspirin [Adult Low Dose Aspirin] 81 mg tablet,delayed release (DR/EC) 81 mg PO DAILY Discontinued glipizide 5 mg tablet extended release 24hr 5 mg PO DAILY No Action (DME) blood-glucose meter [OneTouch Ultra2 Meter] Misc See Rx Instructions .Route Qty: 1 0RF Rx Instructions: check once per day (DME) OneTouch Ultra Test Strip See Rx Instructions .Route Qty: 100 4RF Rx Instructions: check once per day (DME) lancets [OneTouch UltraSoft 2 Lancet] 30 gauge misc See Rx Instructions .Route Qty: 100 4RF Rx Instructions: check once per day Discharge Orders: Discharge Order (Routine); Ordered 04/18/23 Ordered By: Lola Harp Activity on Discharge: As tolerated Stand Alone Forms: Patient Portal Discharge page Care Plan Goals: see below Health Concerns: low blood sugar low heart rate Plan of Treatment: stop taking glipizide to prevent future episode of low blood sugar your Hba1c is low at 4.7 and blood sugars have been stable recommend to check blood sugar twice daily until follow up with PCP follow up with PCP Assessment: see discharge summary
--- NOTE | 2023-04-18 13:57 | MHC.CM.PN ---
Patient has been medically cleared for dc to home today, self care.
== END 2023-04-18 14:34 | disposition home or self-care (01) | DRG 638 ==
LOC: HO.ED 04-17 02:15 → HO.EDOVER 04-17 04:25 → HO.IMC 04-17 18:26
PROVIDERS: Nurse Practitioner Acute Care; Admitting Provider Internal Medicine; Emergency Provider Student in an Organized Health Care Education/Training Program; PCP Internal Medicine; Visit Provider Physician Assistant Medical
DX: E11.641 Type 2 diabetes mellitus with hypoglycemia with coma (principal); N18.5 Chronic kidney disease, stage 5; I25.10 Atherosclerotic heart disease of native coronary artery without angina pectoris; R00.1 Bradycardia, unspecified; T38.3X5A Adverse effect of insulin and oral hypoglycemic [antidiabetic] drugs, initial encounter; E11.22 Type 2 diabetes mellitus with diabetic chronic kidney disease; D63.1 Anemia in chronic kidney disease; Z95.5 Presence of coronary angioplasty implant and graft; Z87.891 Personal history of nicotine dependence; Z79.82 Long term (current) use of aspirin; Z79.84 Long term (current) use of oral hypoglycemic drugs; Z79.899 Other long term (current) drug therapy
CPT/HCPCS: 36415; 80048; 80053; 81001; 82947; 83036; 85025; 85027; 93005; 97161; 99222; 99285

== ENCOUNTER → 2023-04-17 00:01 | Outpatient (BNV) | payer MEDICARE, SELFPAY | PROVIDERS: Admitting Provider Internal Medicine; Emergency Provider Student in an Organized Health Care Education/Training Program; PCP Internal Medicine; Visit Provider Internal Medicine | DX: I42.2 Other hypertrophic cardiomyopathy (principal); I44.1 Atrioventricular block, second degree | CPT/HCPCS: 93010 ==

== ENCOUNTER → 2023-04-17 04:19 | Outpatient (BNV) | payer MEDICARE, SELFPAY | PROVIDERS: Admitting Provider Internal Medicine; Emergency Provider Student in an Organized Health Care Education/Training Program; PCP Internal Medicine; Visit Provider Internal Medicine | DX: E11.641 Type 2 diabetes mellitus with hypoglycemia with coma (principal); N18.5 Chronic kidney disease, stage 5; R00.1 Bradycardia, unspecified | CPT/HCPCS: 99223; 99239; 99499 ==

== ENCOUNTER 2023-04-23 10:59 | Outpatient (AMB) | payer MEDICARE, SELFPAY ==
--- NOTE | 2023-04-23 11:00 | MHC.OFFVIS ---
Intake Vital Signs 04/23/23 11:08 Height 5 ft 6 in Weight 170 lb BMI 27.4 Intake Visit Reasons: 1 month left arm check Intake Note: pt here for a 1 month arm check after a left arm fistula placement on 03/04/23 pt says he is doing well only has occasional pain in his wrist Allergies No Known Allergies Allergy (Mild, Verified 04/23/23 11:10) NONE HPI 1 month left arm check HPI Details Very pleasant 77-year-old gentleman presents for follow-up regarding left upper extremity radiocephalic fistula creation. This was originally created on 03/04 2023. It was a some medial type fistula. It appears to be maturing nicely. The concern is that it has not completely enlarged to accommodate dialysis. Now presents for routine follow-up [facility] Medical History Fistula (03/04/23) CKD (chronic kidney disease) stage 5, GFR less than 15 ml/min Atrioventricular block, Mobitz type 1, Wenckebach CAD (coronary artery disease) Diabetes mellitus with renal manifestation Screening for prostate cancer Screening for colon cancer Diabetes mellitus with coincident hypertension Diabetes mellitus Surgical History H/O wrist surgery History of surgery History of colonoscopy History of cataract surgery History of coronary artery stent placement History of drainage of abscess Family History Father Lung cancer Mother Cancer Social History Household Members: Spouse Housing: House Are you a primary weekend caregiver to a significant other at home: No Do you presently have visiting nurse or other home services: No Alcohol intake: never Patient Tobacco Use Status: Former Tobacco user Quit Date: 40 years Tobacco use type: Cigarette e-Cigarette/Vaping Use: Never Used Second Hand Smoke Exposure: No service: No Current occupational status: retired Cognitive needs: No Hearing needs: No Vision needs: Yes (glasses) Review of Systems Const All systems reviewed & are unremarkable except as noted in HPI and below Reports no additional complaints ENT Reports Normal hearing present Card Denies chest pain, Denies chest pain at rest, Denies chest pain with activity and Denies pedal edema Resp Denies cough GI Denies abdominal pain Musc Denies abnormal gait, Denies muscle cramps and Denies radiating pain into limb Skin/Breast Denies skin ulcer and Denies wounds Neuro Reports Normal hearing present and Denies abnormal gait Psych Reports no additional complaints Physical Exam Vital Signs: BMI result Body Mass Index 27.4 Const General: cooperative, healthy appearing and comfortable Orientation/consciousness: oriented to person, oriented to place and oriented to time HEENT Head: Yes normal to inspection Neck Neck: Yes normal visual inspection Carotids: no bruits Chest Chest palpation & inspection: normal inspection of the chest Resp Effort & Inspection: normal respiratory effort and able to speak in complete sentences Auscultation: clear to auscultation bilaterally, no crackles, no rales, no rhonchi and no wheezes Cardio Other: Left upper extremity fistula has excellent thrill it it in the proximal part. It turns to a more pulsatile flow more distal. Rate: regular rate Rhythm: regular rhythm Heart sounds: S1 normal heart sound present and S2 normal heart sound present Bruits: no carotid bruits Peripheral pulses: Peripheral pulses 2+ throughout GI Inspection: Yes normal to inspection Skin Wounds: no wounds Hair: normal Neuro General: oriented to person, oriented to place and oriented to time Cranial nerves: Yes CN's II-XII intact bilaterally and Yes Normal hearing present Cognition (Neuro): normal cognition Motor exam (neuro): 5/5 motor strength present throughout Extrem Other: venous exam: No significant superficial varicosities or spider telangiectasias, minimal edema General: No clubbing, No cyanosis and No edema Psych Appearance: grossly normal Mental Status: mental status grossly normal Speech and movement: Normal speech and movement present Results Reviewed Results Reviewed: Bedside ultrasound demonstrates multiple side branch Assessment & Plan Assessment & Plan (1) CKD (chronic kidney disease) stage 5, GFR less than 15 ml/min: Code(s): N18.5 - Chronic kidney disease, stage 5 Plan: In short patient has chronic renal insufficiency. He has had a fistula which is slow to mature. He will require left upper extremity fistula revision with fistulogram. Risks benefits complications of the procedure were discussed in detail with the patient. He understood and consented. We will schedule as soon as possible. Thank you for allowing us to assist in his care. Coding Level of Care Code Est Pt Level 4 (96792) Diagnoses CKD (chronic kidney disease) stage 5, GFR less than 15 ml/min N18.5
[2023-04-23 11:08] VITALS: BMI 27.4
== END 2023-04-23 11:33 | disposition home or self-care (01) ==
PROVIDERS: PCP Internal Medicine; Visit Provider Surgery Vascular Surgery
DX: N18.5 Chronic kidney disease, stage 5 (principal)
CPT/HCPCS: 99214

== ENCOUNTER → 2023-04-23 10:59 | Outpatient (BNVA) | payer MEDICARE, SELFPAY | PROVIDERS: PCP Internal Medicine; Visit Provider Surgery Vascular Surgery | DX: N18.5 Chronic kidney disease, stage 5 (principal) | CPT/HCPCS: 99212 ==

== ENCOUNTER 2023-04-25 10:46 | Outpatient (AMB) | payer MEDICARE, SELFPAY ==
[2023-04-25 10:47] VITALS: BP 118/40; PULSE 72; O2SAT 99; BMI 27.4
--- NOTE | 2023-04-25 10:47 | MHC.PC.OV ---
Vital Signs 04/25/23 10:47 Height 5 ft 6 in Weight 170 lb BMI 27.4 BP 118/40 L Blood Pressure Location Lt brachial Position Sitting Pulse 72 Pulse Source Pulse Oximeter Pulse Oximetry (%) 99 Oxygen Delivery Method Room Air Intake Visit Reasons: [facility] [place] 04/16-04/17 low blood pressure Chalk Cutter Required: No Wafer Abrading Machine Tender: Not Required per policy Accompanied by: Self / Same As Patient Allergies No Known Allergies Allergy (Mild, Verified 04/25/23 10:48) NONE Medication List - Last Reconciled 04/25/23 by Severo Estes MD amlodipine (Norvasc) 5 mg PO DAILY aspirin (Adult Low Dose Aspirin) 81 mg PO DAILY blood sugar diagnostic (Butteruch Ultra Test strips) check once per day blood-glucose meter (Butteruch Ultra2 Meter) check once per day calcitriol 0.25 mcg PO DAILY carvedilol (Coreg) 3.125 mg PO BID lancets (PlayfishTouch UltraSoft 2 Lancet) check once per day Tobacco use date assessed: 07/11/22 Fall risk assessment: No Falls in past year Last assessed Fall Risk: 04/25/23 Dental Screening Dental Screen Date: 04/25/23 Did you have a dental visit in the last 12 months?: No Did you have a dental problem in the last 6 months where you did not have access to dental care?: No Was dental information given to patient?: Patient has dentist HPI [facility] [place] 04/16-04/17 low blood pressure HPI Details admitted with hypoglycemtia; rx stopped PFSH Medical History Fistula (03/04/23) CKD (chronic kidney disease) stage 5, GFR less than 15 ml/min Atrioventricular block, Mobitz type 1, Wenckebach CAD (coronary artery disease) Diabetes mellitus with renal manifestation Screening for prostate cancer Screening for colon cancer Diabetes mellitus with coincident hypertension Diabetes mellitus Surgical History H/O wrist surgery History of surgery History of colonoscopy History of cataract surgery History of coronary artery stent placement History of drainage of abscess Family History Father Lung cancer Mother Cancer Social History Household Members: Spouse Housing: House Are you a primary pet care worker to a significant other at home: No Do you presently have visiting nurse or other home services: No Alcohol intake: never Patient Tobacco Use Status: Former Tobacco user Quit Date: 40 years Tobacco use type: Cigarette e-Cigarette/Vaping Use: Never Used Second Hand Smoke Exposure: No service: No Current occupational status: retired Cognitive needs: No Hearing needs: No Vision needs: Yes (glasses) Questionnaire Thrive Questionnaire Date Thrive assessed: 04/17/23 ROBERTO CARLOS-7 AMB Questionnaire ROBERTO CARLOS-7 Date ROBERTO CARLOS - 7 assessed: 07/11/22 Source: Developed by Drs. Jerald Perkins, Tracie Oconnor, Jenaro Horn and colleagues, with an educational jennifer from [employer]. Review of Systems Const Denies chills, Denies headache(s) and Denies weight loss ENT Denies headache(s) Card Denies chest pain, Denies syncope, Denies irregular heart rhythm and Denies dyspnea Resp Denies chest congestion, Denies cough and Denies dyspnea GI Denies abdominal pain, Denies change in stool character, Denies nausea and Denies vomiting Musc Denies deformity and Denies joint swelling Neuro Denies syncope and Denies headache(s) Physical exam (Primary Care) Vital Signs: Last Vital Signs Pulse 72 04/25/23 10:47 BP 118/40 L 04/25/23 10:47 Pulse Ox 99 04/25/23 10:47 Oxygen Delivery Method Room Air 04/25/23 10:47 BMI result Body Mass Index 27.4 Tobacco/Smoking Status: Tobacco use Status Tobacco use date assessed 07/11/22 04/25/23 10:48 Patient Tobacco Use Status Former Tobacco user 04/25/23 10:48 Tobacco use type Cigarette 04/25/23 10:48 e-Cigarette/Vaping Use Never Used 04/25/23 10:48 Thrive Assessment: Date of Thrive Assessment Date Thrive assessed 04/17/23 04/25/23 10:48 Const General: cooperative, comfortable, no acute distress and alert Neck Neck: Yes no lymphadenopathy Thyroid: Thyroid normal Resp Effort & Inspection: normal respiratory effort Auscultation: clear to auscultation bilaterally Percussion: percussion normal Cardio Jugular venous distension: no JVD Palpation: normal PMI Rate: regular rate Rhythm: regular rhythm Heart sounds: S1 normal heart sound present and S2 normal heart sound present GI Inspection: Yes normal to inspection Palpation (GI): No hepatosplenomegaly present Skin General skin exam: no rashes or lesions noted Extrem General: Yes no clubbing, cyanosis or edema Assessment and Plan Assessment & Plan (1) Hypoglycemia: Code(s): E16.2 - Hypoglycemia, unspecified Plan: cont to hold rx Coding Level of Care Code Est Pt Level 3 (15144) Diagnoses Hypoglycemia E16.2
== END 2023-04-25 13:07 | disposition home or self-care (01) ==
PROVIDERS: PCP Internal Medicine; Visit Provider Internal Medicine
DX: E16.2 Hypoglycemia, unspecified (principal)
CPT/HCPCS: 99213

== ENCOUNTER 2023-04-29 07:08 | Day surgery (SDC) | payer MEDICARE, SELFPAY ==
--- NOTE | 2023-04-26 08:49 | HO.ANESPROP2 ---
Documented by User: Julia Green NP 04/26/23 08:55 HPI - Anesthesia Eval Consult details Narrative: 77yo M for Left Left Arm Fistula Revision w/fistulagram s/p fistula creation 02/2023 with MAC [facility] admit 04/2023 with hypoglycemia. Rx changed. CKD approaching ESRD CAD with stent 2011 (no routine cardiology, only PCP) Mobitz Type 1 block PMFSH Active Problems Active Problems: All Active Problems (Updated 04/26/23 @ 00:03 by Background Vandana) Bradycardia (Acute) Hypoglycemia (Acute) Gout (Acute) Adult general medical exam (Acute) Hypertension (Acute) Chronic renal insufficiency (Acute) Anemia (Acute) Personal history of colonic polyps (Acute) Diabetes mellitus with renal manifestation (Acute) Screening for prostate cancer (Acute) Screening for colon cancer (Acute) Diabetes mellitus with coincident hypertension (Acute) Diabetes mellitus (Acute) Past Medical History Medical History Fistula (03/04/23) CKD (chronic kidney disease) stage 5, GFR less than 15 ml/min Atrioventricular block, Mobitz type 1, Wenckebach CAD (coronary artery disease) Diabetes mellitus with renal manifestation Screening for prostate cancer Screening for colon cancer Diabetes mellitus with coincident hypertension Diabetes mellitus Family History Family History Father Lung cancer Mother Cancer Family history of problems with anesthesia: No Surgical History Surgical History H/O wrist surgery History of surgery History of colonoscopy History of cataract surgery History of coronary artery stent placement History of drainage of abscess History of Problems with Anesthesia: No Social History Social History Household Members: Spouse Housing: House Are you a primary child care lead teacher to a significant other at home: No Do you presently have visiting nurse or other home services: No Alcohol intake: never Patient Tobacco Use Status: Former Tobacco user Quit Date: 40 years Tobacco use type: Cigarette e-Cigarette/Vaping Use: Never Used Second Hand Smoke Exposure: No Are you DNR?: No Advance Directives: No Advance Directives Information Provided: Yes Nutrition Risks: No Nutritional Risk service: No Current occupational status: retired Cognitive needs: No Hearing needs: No Vision needs: Yes (glasses) Meds Allergies Allergy/AdvReac Type Severity Reaction Status Date / Time No Known Allergies Allergy Mild NONE Verified 04/29/23 07:26 Home Medications Medication Instructions Recorded Confirmed Last Taken Type aspirin 81 mg tablet,delayed 81 mg PO DAILY 06/08/20 04/29/23 04/28/23 History release (Adult Low Dose Aspirin) calcitriol 0.25 mcg capsule 0.25 mcg PO DAILY 01/30/23 04/29/23 03/03/23 11:00 History glipizide 5 mg tablet, extended 5 mg PO DAILY 04/26/23 04/29/23 Unknown History release 24 hr Exam Pertinent Lab Results Pertinent Lab Results: Laboratory Tests 04/17/23 04/18/23 05:16 12:17 WBC 8.9 Hgb 9.8 L Hct 30.9 L Plt Count 129 L Sodium 134 L Potassium 5.0 Chloride 109 H Carbon Dioxide 14 L BUN 68 H Creatinine 4.44 H* Narrative Narrative: EKG 04/2023 Vent. Rate : 055 BPM Atrial Rate : 077 BPM P-R Int : 000 ms QRS Dur : 132 ms QT Int : 512 ms P-R-T Axes : 048 -31 183 degrees QTc Int : 489 ms Sinus rhythm with 2nd degree A-V block (Mobitz I) Left axis deviation Left ventricular hypertrophy with QRS widening and repolarization abnormality ( Channing product ) Abnormal ECG When compared with ECG of 17-APR-2023 00:25, Sinus rhythm has replaced Atrial fibrillation T wave inversion anterior leads more prominent Assessment and Plan Assessment Anesthesia Assessment: Chart Reviewed Final Anesthetic Review Family History of Problems with Anesthesia: No History of Problems with Anesthesia: No Documented by User: Riri Avalos MD 04/29/23 08:58 [facility] Active Problems Active Problems: All Active Problems (Updated 04/29/23 @ 08:45 by Riri Avalos MD) Bradycardia (Acute) Hypoglycemia (Acute) Gout (Acute) Adult general medical exam (Acute) Hypertension (Acute) Chronic renal insufficiency (Acute) Anemia (Acute) Personal history of colonic polyps (Acute) Diabetes mellitus with renal manifestation (Acute) Screening for prostate cancer (Acute) Screening for colon cancer (Acute) Diabetes mellitus with coincident hypertension (Acute) Diabetes mellitus (Acute) ? Paroxysmal afib- 1 EKG read as possible afib but reverted to SR Admitted 04/17/23 with hypoglycaemic coma. Found unresponsive at home. Blood sugar 33. Recurrent hypoglycaemia. Also admitted 01/2023 Past Medical History Medical History Fistula (03/04/23) CKD (chronic kidney disease) stage 5, GFR less than 15 ml/min Atrioventricular block, Mobitz type 1, Wenckebach CAD (coronary artery disease) Diabetes mellitus with renal manifestation Screening for prostate cancer Screening for colon cancer Diabetes mellitus with coincident hypertension Diabetes mellitus Family History Family History Father Lung cancer Mother Cancer Surgical History Surgical History H/O wrist surgery History of surgery History of colonoscopy History of cataract surgery History of coronary artery stent placement History of drainage of abscess Social History Social History Household Members: Spouse Housing: House Are you a primary child care lead teacher to a significant other at home: No Do you presently have visiting nurse or other home services: No Alcohol intake: never Patient Tobacco Use Status: Former Tobacco user Quit Date: 40 years Tobacco use type: Cigarette e-Cigarette/Vaping Use: Never Used Second Hand Smoke Exposure: No Are you DNR?: No Advance Directives: No Advance Directives Information Provided: Yes Nutrition Risks: No Nutritional Risk service: No Current occupational status: retired Cognitive needs: No Hearing needs: No Vision needs: Yes (glasses) Meds Allergies Allergy/AdvReac Type Severity Reaction Status Date / Time No Known Allergies Allergy Mild NONE Verified 04/29/23 07:26 Home Medications Medication Instructions Recorded Confirmed Last Taken Type aspirin 81 mg tablet,delayed 81 mg PO DAILY 06/08/20 04/29/23 04/28/23 History release (Adult Low Dose Aspirin) calcitriol 0.25 mcg capsule 0.25 mcg PO DAILY 01/30/23 04/29/23 03/03/23 11:00 History glipizide 5 mg tablet, extended 5 mg PO DAILY 04/26/23 04/29/23 Unknown History release 24 hr Exam Height,Weight and Vital Signs: Height 5 ft 6 in Weight 76.929 kg Vital Signs Temp Pulse Resp BP Pulse Ox O2 Del Method 04/29/23 07:42 98.1 F 70 18 137/67 100 Room Air Pertinent Lab Results Pertinent Lab Results: Laboratory Tests 04/17/23 04/18/23 05:16 12:17 WBC 8.9 Hgb 9.8 L Hct 30.9 L Plt Count 129 L Sodium 134 L Potassium 5.0 Chloride 109 H Carbon Dioxide 14 L BUN 68 H Creatinine 4.44 H* Lab Results 04/29/23 Range/Units 07:39 POC Glucose 109 (60-115) mg/dL Airway Mallampati Class: III TM Dist: >3cm Neck ROM: Full Denture: Upper and Lower Loose/Missing/Broken Teeth: Yes Heart: RRR Lungs: CTAB Assessment and Plan Assessment Anesthesia Assessment: Anesthesia Plan Discussed Final Anesthetic Review NPO: Yes ASA Class: III Final Preanesthetic Review: No Changes in Pt Med Stat, Meds/Allgs Chart Reviewed, Consent Obtained/Reviewed and Anes Risks/Benef Reviewed Patient Risk: Intermediate Procedure Risk: Low Assessment/Block/Sedation in SS: Assess/Block/Sedation-SS Anesthetic Plan Anesthetic Plan: MAC: Disposition: Standard PACU
[2023-04-29] VITALS (7 sets, daily range): BP systolic 100–137; BP diastolic 42–74; PULSE 61–70; RESP 14–18; TEMP 36.2–36.9; O2SAT 95–100; BMI 27.4
--- NOTE | ~2023-04-29 | FL_ITS ---
EXAMINATION: XR FLUOROSCOPY WITH IMAGES CLINICAL INFORMATION: Fistula. COMPARISON: None available. TECHNIQUE: Fluoroscopy Supervised By: Melecio Clancy M.D. Fluoroscopy Time: 3.4 minutes. Cumulative Dose: 3.97 mGy. DAP: 1.08 Gycm2. Images: 80. FINDINGS: Fluoroscopy guidance left arm fistula study. Images demonstrate balloon dilatation over the antecubital fossa. See procedure note for detailed findings. FL/FL guidance in OR IMPRESSION: Fluoroscopy guidance for left arm fistula study.
[2023-04-29] MEDS: 0.9 % Sodium Chloride 1,000 ML 100 ML IVCONT (07:33)
[2023-04-29 07:46] LABS: Glucose, Whole Blood 109 mg/dL (60-115)
--- NOTE | 2023-04-29 08:50 | PC.NURSE ---
Iv attempt by author. Iv attempt by Margaret Mccain RN. Insertion with ultrasound by Dr. Martines
--- NOTE | 2023-04-29 09:01 | MHC.SHP ---
Pre-Procedural Eval Section A Date of Service: 04/29/23 The patient is an INPATIENT: No Changes since office visit: Yes Patient answered all questions The History & Physical has been completed within 30 days and I have reviewed it.: Yes Section B Chief Complaint: End stage renal disease Allergies: Allergies Allergy/AdvReac Type Severity Reaction Status Date / Time No Known Allergies Allergy Mild NONE Verified 04/29/23 07:26 Plan I have reviewed the history and physical and performed a pertinent physical examination on my patient. No changes have occurred unless specified. Time Spent With Patient Time: Total time managing care of this patient today ____ minutes.
--- NOTE | 2023-04-29 10:16 | P.OP_ITS ---
Operative Note Operative Note Date of Service: 04/29/23 Narrative: Operative note by [facility] Preoperative diagnosis: chronic renal insufficiency Postoperative diagnosis: same Procedure: left arm fistulogram with plasty of outflow track Surgeon:Melecio Clancy M.D. Import/Export Administrator: lili Anesthesia: local with sedation Specimens: non Drains: none Estimated blood loss: minimal Indications: very pleasant 77-year-old gentleman with chronic renal insufficiency presents for treatment for poorly maturing fistula. Has been present for approximately 6 weeks and had a smaller diameter fistula. The thrill went to pulsatile flow. Now presents for endovascular intervention possible ligation of side branches. The patient has signed the informed consent after reviewing risks, complications, benefits, and alternatives previously discussed with the patient. The patient was given the opportunity to ask any additional questions or voice any concerns. All questions were answered to the patient's satisfaction. Procedure in detail: Patient was brought to the operating room prior to which a time-out was called for patient identification and site verification. Left arm was prepped and draped in standard surgical fashion. We then infiltrated the left arm with local an accessed the fistula with micropuncture needle and sheath. Fistulogram was then undertaken. Outflow tract did demonstrate some mild degree stenosis in the origin and towards the elbow. We then administered 3000 units of heparin. We advanced a Glidewire Advantage 035 wire. We subsequently exchanged out for 6 [place] sheath. Once this was accomplished we then initially plasty this area from just above the elbow all the way down distally with a 5 x 40 balloon. We subsequently placed a 6 x 80 balloon. This was insufflated in 2 separate locations. Once this was accomplished outflow t ract did appear improved. No additional intervention was indicated at this point. Sheath was removed and a 3-0 nylon suture was used in a circumferential manner to close the puncture site. At the conclusion fistula did have her reasonable thrill throughout. At the end the case sponge instrument counts were correct. Patient tolerated the procedure well. Returned to recovery with stable vitals. This note is constructed using voice recognition software. While every effort has been made to ensure accuracy, incident response lead errors may have been included. Thank you for allowing me to participate in the care of your patient. Yours sincerely, Melecio Clancy MD, FACS, R.P.V.I.
== END 2023-04-29 12:03 | disposition home or self-care (01) ==
PROVIDERS: PCP Internal Medicine; Visit Provider Surgery Vascular Surgery
PROC: (CPT 36902; principal; 2023-04-29 08:40)
DX: E11.22 Type 2 diabetes mellitus with diabetic chronic kidney disease (principal); I12.0 Hypertensive chronic kidney disease with stage 5 chronic kidney disease or end stage renal disease; N18.5 Chronic kidney disease, stage 5; Z99.2 Dependence on renal dialysis; I25.10 Atherosclerotic heart disease of native coronary artery without angina pectoris; Z95.5 Presence of coronary angioplasty implant and graft; Z79.899 Other long term (current) drug therapy; Z79.84 Long term (current) use of oral hypoglycemic drugs; Z79.82 Long term (current) use of aspirin; Z87.891 Personal history of nicotine dependence
CPT/HCPCS: 36902; 82947; A4649; C1725; C1769; C1893; J0690; J1644; J2704; J2795; J3010; Q9967

== ENCOUNTER → 2023-04-29 07:08 | Outpatient (BNV) | payer MEDICARE, SELFPAY | PROVIDERS: PCP Internal Medicine; Visit Provider Surgery Vascular Surgery | DX: N18.6 End stage renal disease (principal) | CPT/HCPCS: 36905 ==

== ENCOUNTER 2023-05-08 13:07 | Outpatient (REF) | payer MEDICARE, SELFPAY ==
[2023-05-08 13:47] LABS: Hematocrit 31.7 % (42.0-52.0); Hemoglobin 9.6 g/dl (14.0-18.0); Mean Corpuscular HGB Conc 30.3 g/dl (31.0-36.0); Mean Corpuscular Hemoglobin 26.8 pg (27.0-33.0); Mean Corpuscular Volume 88.5 fL (80.0-98.0); Mean Platelet Volume 10.5 fL (9.4-12.4); Platelet Count 215 X10*3/uL (160-400); Red Blood Count 3.58 X10*6/uL (4.60-5.80); Red Cell Distribution Width 16.2 % (11.0-16.0); White Blood Count 8.7 X10*3/uL (4.8-10.8)
[2023-05-08 15:09] LABS: Anion Gap 18 (12-20); Blood Urea Nitrogen 89 mg/dL (9-16); Calcium 9.3 mg/dL (8.4-10.2); Carbon Dioxide 17 mmol/L (22-29); Chloride 110 mmol/L (96-108); Potassium 5.2 mmol/L (3.3-5.1); Sodium 140 mmol/L (135-145)
[2023-05-08 15:12] LABS: Estimated Glomerular Filt Rate 12
== END 2023-05-08 13:08 | disposition home or self-care (01) ==
LOC: HO.LAB 13:07
PROVIDERS: PCP Internal Medicine; Referring Provider Internal Medicine; Visit Provider Internal Medicine Hypertension Specialist
DX: N18.5 Chronic kidney disease, stage 5 (principal)
CPT/HCPCS: 36415; 80051; 82310; 82565; 84520; 85027

== ENCOUNTER 2023-05-09 13:06 | Inpatient (IN) | payer MEDICARE, SELFPAY ==
--- NOTE | ~2023-05-09 | CT_ITS ---
EXAMINATION: CT HEAD WITHOUT CONTRAST (STROKE PROTOCOL) CLINICAL INFORMATION: Stroke protocol. Left-sided deficits COMPARISON: None available. TECHNIQUE: Contiguous axial imaging was performed from the skull base to vertex without intravenous administration of contrast. This CT examination was performed using dose optimization techniques as appropriate, variously including the following: *Automated exposure control *Adjustment of mA and/or kV according to patient size (this includes techniques or standardized protocols for targeted exams where dose is matched to indication/reason for exam; i.e. extremities or head) *Use of iterative reconstruction technique DLP: 646 mGy-cm FINDINGS: Sulci and ventricles appear normal. Mild gliosis noted in the white matter. No evidence however for intra or extra-axial fluid collection, hemorrhage, mass, or mass effect. Barium is intact. Incidental note is made of a moderate air-fluid level in the right maxillary sinus compatible with sinusitis. There is mild mucosal thickening in the left maxillary sinus. The retrobulbar regions are intact. The mastoid air cells are clear. There is dense atherosclerotic calcification in the carotid siphons. CT/CT head for stroke IMPRESSION: No acute intracranial pathology. Results to be called by the PSA. This critical result was discussed with MILTON Burt, at 1:23 PM hours on 05/09/2023.. It was ascertained that the content and urgency of the report was understood at the time of direct communication.
--- NOTE | 2023-05-09 13:11 | ECG_ITS ---
Test Reason : STROKE SYMPTOMS Blood Pressure : / mmHG Vent. Rate : 062 BPM Atrial Rate : 078 BPM P-R Int : 000 ms QRS Dur : 144 ms QT Int : 468 ms P-R-T Axes : 000 -21 161 degrees QTc Int : 475 ms Undetermined rhythm Left bundle branch block Abnormal ECG When compared with ECG of 17-APR-2023 02:00, No significant changes seen Referred By: Dyan Méndez Electronically Signed By:MACKENZIE MICHAEL
[2023-05-09 13:19] VITALS: BP 108/67; BP 137/43; PULSE 65; PULSE 73; RESP 19; O2SAT 100; O2SAT 97; BMI 28.1
--- NOTE | 2023-05-09 13:22 | ED_ITS ---
HPI - Neuro Symptoms/Deficit General Chief Complaint: Stroke Stated Complaint: STROKE ALERT Time Seen by Provider: 05/09/23 13:11 Source: patient and old records reviewed Mode of arrival: EMS Limitations: no limitations History of Present Illness HPI Narrative: 77 yo male with PMH of CKD, bradycardia, anemia, recent hypoglycemia, DM - not on medications held from last admission, states around 11pm last night became more tired and L side of body wasnt' working. He denies trauma. Family notes episodes of low blood sugar but not taking medications, anorexia, fatigue - recent admit for low BS and bradycardia. called as patient wasn't really getting up and sleeping upon waking she noted last known well 11pm and he had weakness and slurred speech when she noted upon waking Onset (ago): hour(s) (11pm yesterday ) Last Observed Normal: 23:00 Timing confirmed by: family member Location: speech and left arm History of same: Yes Severity: mild Quality: weak Relieving factors: none Exacerbating factors: none Context: gradual onset On Anticoagulants: No Associated symptoms: loss of appetite, malaise and other (EMS notes blood sugar in 50s - in 30s on arrival to the ED given dextrose) Related Data Home Medications Medication Instructions Recorded Confirmed aspirin 81 mg tablet,delayed 81 mg PO DAILY 06/08/20 04/29/23 release (Adult Low Dose Aspirin) calcitriol 0.25 mcg capsule 0.25 mcg PO DAILY 01/30/23 04/29/23 glipizide 5 mg tablet, extended 5 mg PO DAILY 04/26/23 04/29/23 release 24 hr Previous Rx's Medication Instructions Recorded amlodipine 5 mg tablet (Norvasc) 5 mg PO DAILY #30 tabs 01/30/23 carvedilol 3.125 mg tablet (Coreg) 3.125 mg PO BID #60 tabs 01/30/23 blood-glucose meter (OneTouch #1 ea 02/07/23 Ultra2 Meter) lancets 30 gauge (OneTouch #100 ea 02/07/23 UltraSoft 2 Lancet) blood sugar diagnostic (OneTouch #100 ea 04/21/23 Ultra Test strips) Allergies Allergy/AdvReac Type Severity Reaction Status Date / Time No Known Allergies Allergy Mild NONE Verified 04/29/23 07:26 Review of Systems 2 Review of Systems: Constitutional : No Fever, No Chills, pos Fatigue, pos anorexia ENT/Mouth : No sore throat, No Rhinorrhea Eyes: No Eye Pain, No Swelling, No Redness Cardiovascular : No Chest Pain, No SOB, No Dyspnea on Exertion Respiratory : No Cough, No Sputum Gastrointestinal : No Nausea, No Vomiting, No Diarrhea, No abdominal Pain Genitourinary : No Dysuria, No Urinary Frequency, No Hematuria, Musculoskeletal : No joint pain, No Myalgias, No Joint Swelling Skin : No Skin Lesions, No rash Neuro : pos Weakness, No Numbness, No Dizziness, no Headache Psych : No Anxiety/Panic, No Depression All other systems reviewed and are negative [facility] Past Medical History Attestation statement: The following information was validated with the patient. 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) CKD (chronic kidney disease) stage 5, GFR less than 15 ml/min Atrioventricular block, Mobitz type 1, Wenckebach CAD (coronary artery disease) Diabetes mellitus with renal manifestation Screening for prostate cancer Screening for colon cancer Diabetes mellitus with coincident hypertension Diabetes mellitus Surgical History H/O wrist surgery History of surgery History of colonoscopy History of cataract surgery History of coronary artery stent placement History of drainage of abscess Family History Family History Father Lung cancer Mother Cancer Social History Social History Household Members: Spouse Housing: House Are you a primary care transitions manager to a significant other at home: No Do you presently have visiting nurse or other home services: No Alcohol intake: never Patient Tobacco Use Status: Former Tobacco user Quit Date: 40 years Tobacco use type: Cigarette e-Cigarette/Vaping Use: Never Used Second Hand Smoke Exposure: No Advance Directives: No Advance Directives Information Provided: Yes service: No Current occupational status: retired Cognitive needs: No Hearing needs: No Vision needs: Yes (glasses) Physical Exam 2 Vital Signs: Vital Signs: Last Vital Signs Pulse 65 05/09/23 13:19 Resp 19 05/09/23 13:19 BP 137/43 L 05/09/23 13:19 Pulse Ox 100 05/09/23 13:19 O2 Del Method Room Air 05/09/23 13:19 BMI result Body Mass Index 28.1 Appearance: Alert. Oriented X3. No acute distress. Eyes: Pupils equal, round and reactive to light. ENT: Pharynx normal. Neck: Normal inspection. Neck supple. CVS: Normal heart rate and rhythm. Pulses normal. Respiratory: No respiratory distress. Breath sounds normal. Abdomen: Soft and nontender. Skin: Skin warm and dry. Normal skin color. Normal skin turgor. Extremities: No lower extremity edema. No calf ttp Neuro: Oriented X 3. L sided arm and leg 4/5, R side normal, mild dysarthria Course Course Course Narrative: discussion with sushma Mccauley and was present - via phone no contrast or CTA nothing that would expedite dialysis Reevaluation(s) Reevaluation #1: glucose improved - dysarthria and L sided weakness improved Reevaluation #2: FAMILY STATES THE PATIENT IS NOT TAKING GLIPIZIDE Reevaluation #3: DAUGHTER brought pills in as patient states he was taking his glipizide and he in fact has been taking it in error. Likely COVID is residual from illness family had a month ago. Additional Reevaluation(s): signed out to Dr. Muniz pending repeat troponin but planned admit Medications Administered Discontinued Medications Generic Name Dose Route Start Last Admin Trade Name Freq PRN Reason Stop Dose Admin Dextrose 25 gm 05/09/23 13:35 05/09/23 13:53 Dextrose 50 % 25 Gm/50 Ml Syringe IVPUSH 05/09/23 13:36 25 gm ONCE ONE Administration Medical Decision Making Medical Decision Making [facility] Narrative: 77 yo male with PMH of CKD, bradycardia, anemia, recent hypoglycemia, DM not on DM medications but not eating has L side deficits and slurred speech at this time family does not want contrast to make CKD worse will obtain basic labs, CT head for stroke avoid CTA - given NIH 3 would have low susp for LVO he is not a candidate for TNK given onset 13 hours ago. Possible hypoglycemia given hx of same in past. Differential Diagnosis Differential Diagnoses: The differential diagnosis associated with the presentation includes stroke, hypoglycemia, lyte abnormality Admission/Observation Consideration of admission/observation: Escalation of care including admission/observation considered admit for hypoglycemia again in setting of misuse of glipizide Consult Healthcare Provider Management of the patient was discussed with: Hospitalist (will admit) Lab Data MDM Lab Attestation statement: I reviewed the patient's lab results. suspect COVID residual from one month ago 05/09/23 14:17 05/09/23 14:17 Labs: Lab Results 05/09/23 05/09/23 05/09/23 Range/Units 13:31 14:17 14:26 WBC 7.7 (4.8-10.8) X10*3/uL RBC 3.35 L (4.60-5.80) X10*6/uL Hgb 8.8 L (14.0-18.0) g/dl Hct 28.8 L (42.0-52.0) % MCV 86.0 (80.0-98.0) fL MCH 26.3 L (27.0-33.0) pg MCHC 30.6 L (31.0-36.0) g/dl RDW 16.4 H (11.0-16.0) % Plt Count 164 (160-400) X10*3/uL MPV 10.3 (9.4-12.4) fL Immature Gran % (Auto) 0.4 (0.0-0.4) % Neut % (Auto) 83.8 H (45-73) % Lymph % (Auto) 11.8 L (20-40) % [place] % (Auto) 3.4 (2-11) % Eos % (Auto) 0.3 (0-4) % Baso % (Auto) 0.3 (0-2) % Lymph # (Auto) 0.9 L (1.2-4.9) X10*3/uL [place] # (Auto) 0.3 (0.1-1.2) X10*3/uL Eos # (Auto) 0.0 (0.0-0.4) X10*3/uL Baso # (Auto) 0.0 (0.0-0.2) X10*3/uL Abs Immat Gran (auto) 0.03 (0.00-0.03) X10*3/uL Absolute Neuts (auto) 6.5 (2.0-8.3) x10*3/uL Absolute Nucleated RBC 0.000 (0.0-0.012) X10*3/uL Nucleated RBC % (auto) 0.0 (0.0-0.2) /100WBC PT (11.1-13.3) SEC INR (0.9-1.1) APTT (26.0-36.4) SEC Sodium 138 (135-145) mmol/L Potassium 5.2 H (3.3-5.1) mmol/L Chloride 111 H (96-108) mmol/L Carbon Dioxide 13 L (22-29) mmol/L Anion Gap 19 (12-20) BUN 95 H (9-16) mg/dL Creatinine 4.66 H* (0.5-1.4) mg/dL Estim Creat Clear Calc 13.3 Estimated GFR 12 POC Glucose 30 L* 105 (60-115) mg/dL Random Glucose 182 H (60-115) mg/dL Calcium 8.6 D (8.4-10.2) mg/dL Magnesium 2.4 (1.6-2.6) mg/dL Total Bilirubin 0.3 (0.0-1.0) mg/dL Direct Bilirubin 0.1 (0.0-0.5) mg/dL AST 19 (5-37) U/L ALT 5 (0-40) U/L Alkaline Phosphatase 59 (39-117) U/L Troponin I High Sens 107.9 H* D (<3.5-35.0) ng/L Total Protein 6.5 (6.5-8.0) g/dL Albumin 3.3 L (3.5-5.0) g/dL Influenza Type A (PCR) NEGATIVE (Negative) Influenza Type B (PCR) NEGATIVE (Negative) RSV RNA Qual (PCR) NEGATIVE (Negative) SARS-CoV-2 RNA (RT-PCR) POSITIVE A (Negative) 05/09/23 Range/Units 15:42 WBC (4.8-10.8) X10*3/uL RBC (4.60-5.80) X10*6/uL Hgb (14.0-18.0) g/dl Hct (42.0-52.0) % MCV (80.0-98.0) fL MCH (27.0-33.0) pg MCHC (31.0-36.0) g/dl RDW (11.0-16.0) % Plt Count (160-400) X10*3/uL MPV (9.4-12.4) fL Immature Gran % (Auto) (0.0-0.4) % Neut % (Auto) (45-73) % Lymph % (Auto) (20-40) % [place] % (Auto) (2-11) % Eos % (Auto) (0-4) % Baso % (Auto) (0-2) % Lymph # (Auto) (1.2-4.9) X10*3/uL [place] # (Auto) (0.1-1.2) X10*3/uL Eos # (Auto) (0.0-0.4) X10*3/uL Baso # (Auto) (0.0-0.2) X10*3/uL Abs Immat Gran (auto) (0.00-0.03) X10*3/uL Absolute Neuts (auto) (2.0-8.3) x10*3/uL Absolute Nucleated RBC (0.0-0.012) X10*3/uL Nucleated RBC % (auto) (0.0-0.2) /100WBC PT 13.0 (11.1-13.3) SEC INR 1.1 (0.9-1.1) APTT 30.7 (26.0-36.4) SEC Sodium (135-145) mmol/L Potassium (3.3-5.1) mmol/L Chloride (96-108) mmol/L Carbon Dioxide (22-29) mmol/L Anion Gap (12-20) BUN (9-16) mg/dL Creatinine (0.5-1.4) mg/dL Estim Creat Clear Calc Estimated GFR POC Glucose (60-115) mg/dL Random Glucose (60-115) mg/dL Calcium (8.4-10.2) mg/dL Magnesium (1.6-2.6) mg/dL Total Bilirubin (0.0-1.0) mg/dL Direct Bilirubin (0.0-0.5) mg/dL AST (5-37) U/L ALT (0-40) U/L Alkaline Phosphatase (39-117) U/L Troponin I High Sens (<3.5-35.0) ng/L Total Protein (6.5-8.0) g/dL Albumin (3.5-5.0) g/dL Influenza Type A (PCR) (Negative) Influenza Type B (PCR) (Negative) RSV RNA Qual (PCR) (Negative) SARS-CoV-2 RNA (RT-PCR) (Negative) Independent Interpretation I performed an independent interpretation of an: EKG and CT Scan (no ICH) Interpretation: Rate: 62 Rhythm: SR 2nd degree mobitz 1 Johnson: left Normal P waves. Normal CORINNE. Normal QRS complex. ST T wave : no IKE, inverted I and aVL, V5-V6 qTC: 475 prior studies: no sig change from 04/17 The study has been interpreted contemporaneously by me. . Radiology Impression Discussion of test interpretation with radiology: I discussed test interpretation with the radiologist and I have reviewed the radiologist's reading. Independent Historian Clinical information obtained from an independent historian. History obtained from or confirmed by: Other (daughter and ) External Record Review External record reviewed: Inpatient record NIH Stroke Scale Internal: Initial- Upon Arrival Level of Consciousness: Alert Level of Consciousness Questions: Answers both questions correctly Level of Consciousness Commands: Performs both tasks correctly Best Gaze: Normal Visual: No visual loss Facial Palsy: Normal Motor Arm (Right): No drift Motor Arm (Left): Drift Motor Leg (Right): No drift Motor Leg (Left): Drift Limb Ataxia: Absent Sensory: Normal Best Language: No aphasia Dysarthia: Mild to moderate dysarthria Extinction and Inattention: No abnormality Score: 3 Critical Care Time Critical Care Time Critical Care Time: Yes Total Critical Care Time: 35 Attestation: run as stroke alert, no TNK given, repeat assessments, treatment of hypoglycemia I attest to this time spent taking care of the patient Discharge Plan Discharge Clinical Impression: Weakness, Hypoglycemia, Elevated troponin Patient Disposition: Admitted As Inpatient
[2023-05-09] MEDS: Dextrose 50 % 25 GM/50 ML SYRINGE IVPUSH (13:53)
--- NOTE | 2023-05-09 14:00 | PC.NURSE ---
pt comes from home for stroke like symptoms. pt a&o x4, calm, and cooperative. when smiling, pt has slight left sided facial droop. pt also with some slurred speech. pt poc on ambulance 50, given 15g oral glucose, poc up to 53. pt T2DM per EMS. when pt arrived to ED, poc 30. immediately given orange juice and pudding. pt refused gerardo crackers. pt a&o, immediately attempting to place IV for dextrose IV push. pt with new fistula to left forearm. no BP/venipuncture to L arm. pt difficult stick. 22G IV placed to right hand. pt medicated per jul. tech attempting to collect labs guilherme. pt denies pain. sts he is feeling better than when he was at home. placed on bedside monitor. changed into hospital attire. resting quietly on stretcher in no apparent distress. rr even/unlabored. call lynn within pt reach. plan of care ongoing.
[2023-05-09 14:22] LABS: MANUAL DIFF FLAG NO
[2023-05-09 14:22] LABS: Glucose, Whole Blood 30 mg/dL (60-115)
[2023-05-09 14:25] LABS: Basophils Percent Auto 0.3 % (0-2); Eosinophils Percent Auto 0.3 % (0-4); Hematocrit 28.8 % (42.0-52.0); Hemoglobin 8.8 g/dl (14.0-18.0); Imm Gran Abs Auto 0.03 X10*3/uL (0.00-0.03); Imm Gran Pct Auto 0.4 % (0.0-0.4); Lymphocytes Absolute Auto 0.9 X10*3/uL (1.2-4.9); Lymphocytes Percent Auto 11.8 % (20-40); Mean Corpuscular HGB Conc 30.6 g/dl (31.0-36.0); Mean Corpuscular Hemoglobin 26.3 pg (27.0-33.0); Mean Platelet Volume 10.3 fL (9.4-12.4); Monocytes Absolute Auto 0.3 X10*3/uL (0.1-1.2); Monocytes Percent Auto 3.4 % (2-11); Neutrophils Absolute Auto 6.5 x10*3/uL (2.0-8.3); Neutrophils Percent Auto 83.8 % (45-73); Platelet Count 164 X10*3/uL (160-400); Red Blood Count 3.35 X10*6/uL (4.60-5.80); Red Cell Distribution Width 16.4 % (11.0-16.0); White Blood Count 7.7 X10*3/uL (4.8-10.8)
--- NOTE | 2023-05-09 14:27 | PC.NURSE ---
nick reyes 105. Dr. Méndez aware.
[2023-05-09 14:30] LABS: Glucose, Whole Blood 105 mg/dL (60-115)
[2023-05-09 14:43] LABS: Alanine Aminotransferase 5 U/L (0-40); Albumin Level 3.3 g/dL (3.5-5.0); Alkaline Phosphatase 59 U/L (39-117); Anion Gap 19 (12-20); Aspartate Amino Transferase 19 U/L (5-37); Bilirubin Direct 0.1 mg/dL (0.0-0.5); Bilirubin Total 0.3 mg/dL (0.0-1.0); Blood Urea Nitrogen 95 mg/dL (9-16); Calcium 8.6 mg/dL (8.4-10.2); Carbon Dioxide 13 mmol/L (22-29); Chloride 111 mmol/L (96-108); Creatinine Clr Calc Pharmacy 13.3; Estimated Glomerular Filt Rate 12; Glucose Random 182 mg/dL (60-115); Magnesium 2.4 mg/dL (1.6-2.6); Potassium 5.2 mmol/L (3.3-5.1); Sodium 138 mmol/L (135-145); Total Protein 6.5 g/dL (6.5-8.0)
[2023-05-09 14:53] LABS: Troponin-I High Sensitivity 107.9 ng/L (<3.5-35.0)
[2023-05-09 15:22] LABS: Influenza A PCR NEGATIVE (Negative); Influenza B PCR NEGATIVE (Negative); Resp Syncy Virus RNA Qual PCR NEGATIVE (Negative); SARS COV2 PCR INHOUSE POSITIVE (Negative)
[2023-05-09 15:53] LABS: INTERNATIONAL NORM RATIO 1.1 (0.9-1.1)
[2023-05-09 15:56] LABS: Partial Thromboplastin Time 30.7 SEC (26.0-36.4)
[2023-05-09 16:11] LABS: Troponin-I High Sensitivity 119.3 ng/L (<3.5-35.0)
--- NOTE | 2023-05-09 16:30 | PHA.MEDREC ---
Pharmacy Consult ? Medication Reconciliation Pharmacy has completed the medication reconciliation. Patient confirm medication based on previous records. Patient reported he only takes 3 medications. Patient confirmed amlodipine, aspirin and carvedilol. Reported glipizde was stopped and does not know was calctriol 0.25 mcg is. Patient last filled amlodipine and carvedilol in January for 30 days supplies. Samia Moreno, PharmD
[2023-05-09 17:36] VITALS: BP 117/89; PULSE 91; RESP 23; O2SAT 100
--- NOTE | 2023-05-09 17:37 | PC.NURSE ---
pt poc 48. Dr. Pierce present in room and aware. pt provided with orange juice. MD to order D5NS. pt appears well, denies any symptoms, is adequately perfusing, speaking in full complete sentences. rr even/unlabored.
[2023-05-09 17:41] LABS: Glucose, Whole Blood 48 mg/dL (60-115)
--- NOTE | 2023-05-09 18:13 | P.HPHOSP_ITS ---
History of Present Illness Date of Service: 05/09/23 Chief Complaint: Left-sided weakness 77-year-old gentleman with past medical history significant for advanced a kidney disease, bradycardia, anemia, recent admission to [facility] with hypoglycemia presented to [facility] due to left-sided weakness associated with tiredness, slurred speech when he woke up this a.m. last known well at 23:00 , as per family patient has loss of appetite, malaise, EMS noted blood sugar in 50s, blood sugar noted to be in 30s on arrival to the emergency room, CT brain showed no acute abnormality patient was supposed to discontinue glipizide but he admitted that he has been taking the medication, since he was not aware to stop the medication, in emergency room patient treated with D50, blood sugar improved but then drifted back down to 48, patient also noted to have elevated troponin, he denies chest pain, no shortness of breath no lightheadedness ,no dizziness, no palpitations, patient is being admitted to [facility] due to persistent hypoglycemia. Review of Systems 2 Review of Systems: General no headache, no dizziness no fever chills. CVS no chest pain, no palpitation. 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) CKD (chronic kidney disease) stage 5, GFR less than 15 ml/min Atrioventricular block, Mobitz type 1, Wenckebach CAD (coronary artery disease) Diabetes mellitus with renal manifestation Screening for prostate cancer Screening for colon cancer Diabetes mellitus with coincident hypertension Diabetes mellitus Family History Father Lung cancer Mother Cancer Surgical History H/O wrist surgery History of surgery History of colonoscopy History of cataract surgery History of coronary artery stent placement History of drainage of abscess Social History Household Members: Spouse Housing: House Are you a primary health care technician to a significant other at home: No Do you presently have visiting nurse or other home services: No Alcohol intake: never Patient Tobacco Use Status: Former Tobacco user Quit Date: 40 years Tobacco use type: Cigarette Smoked in Last 30 Days: No e-Cigarette/Vaping Use: Never Used Patient Interested in Nicotine Replacement: No Patient Given Instructions on How to Stop Smoking: No Second Hand Smoke Exposure: No Use of substances other than those prescribed or required for medical reasons: No Currently Displaying Signs/Symptoms of Drug Intoxication Withdrawal: No Any prior treatment program specific to substance use: No Have you been hit, kicked, punched, or otherwise hurt by someone within the past year? If so, by whom?: No Do you feel safe in your current relationship?: Yes Is there a partner from a previous relationship who is making you feel unsafe now?: No Advance Directives: No Advance Directives Information Provided: Yes Do you have thoughts of harming others: None Recently lost weight without trying: Yes How much weight loss: 2-13 pounds Eating poorly because of decreased appetite: Yes Nutrition screen score: 4 Poor oral hygiene: No service: No Current occupational status: retired Cognitive needs: No Hearing needs: No Vision needs: Yes (glasses) Meds Allergies Allergy/AdvReac Type Severity Reaction Status Date / Time No Known Allergies Allergy Mild NONE Verified 04/29/23 07:26 Active Medications: Current Medications Acetaminophen (Acetaminophen 325 Mg Tablet) 650 mg PO Q6H PRN PRN Reason: Pain, Mild (Pain Scale 1-3) Amlodipine Besylate (Amlodipine Besylate 5 Mg Tablet) 5 mg PO DAILY [facility]; Protocol Aspirin (Aspirin Enteric Coated 81 Mg Tablet.) 81 mg PO DAILY [facility] Benzonatate (Benzonatate 100 Mg Capsule) 100 mg PO TID PRN PRN Reason: Cough Carvedilol (Carvedilol 3.125 Mg Tablet) 3.125 mg PO BID [facility]; Protocol Melatonin (Melatonin 3 Mg Tablet) 3 mg PO BEDTIME PRN PRN Reason: Insomnia Ondansetron HCl (Ondansetron Hcl 4 Mg/2 Ml Vial) 4 mg IVPUSH Q8H PRN PRN Reason: Nausea Sodium Chloride (0.9 % Sodium Chloride Flush 3 Ml Syringe) 3 ml IVFLUSH QSHIFT [facility] Home Medications Medication Instructions Recorded Confirmed Last Taken Type aspirin 81 mg tablet,delayed 81 mg PO DAILY 06/08/20 05/09/23 04/28/23 History release (Adult Low Dose Aspirin) carvedilol 3.125 mg tablet 3.125 mg PO BID 05/09/23 05/09/23 Unknown History Physical Exam 2 Vital Signs and Narrative: Vital Signs: Last Vital Signs Pulse 91 05/09/23 17:36 Resp 23 H 05/09/23 17:36 BP 117/89 05/09/23 17:36 Pulse Ox 100 05/09/23 17:36 O2 Del Method Room Air 05/09/23 17:36 BMI result Body Mass Index 28.1 Const: Other: General awake alert x 3, in no acute distress. HEENT PERRLA,EOMI Neck supple no JVD. CVS regular rate rhythm, Respiratory lungs clear to auscultation, no respiratory distress, no wheeze, no rhonchi. Gastrointestinal abdomen soft, non tender, bowel sounds audible, no rebound no rigidity Extremities no edema. Neuro nonfocal Skin no rash Psych appropriate affect Results Labs 05/09/23 14:17 05/09/23 14:17 Labs: Laboratory Results - last 24 hr 05/09/23 05/09/23 05/09/23 13:31 14:17 14:26 MCV 86.0 MCH 26.3 L MCHC 30.6 L RDW 16.4 H Plt Count 164 MPV 10.3 Immature Gran % (Auto) 0.4 Neut % (Auto) 83.8 H Lymph % (Auto) 11.8 L [place] % (Auto) 3.4 Eos % (Auto) 0.3 Baso % (Auto) 0.3 Lymph # (Auto) 0.9 L [place] # (Auto) 0.3 Eos # (Auto) 0.0 Baso # (Auto) 0.0 Abs Immat Gran (auto) 0.03 Absolute Neuts (auto) 6.5 Absolute Nucleated RBC 0.000 Nucleated RBC % (auto) 0.0 PT INR APTT Anion Gap 19 Estim Creat Clear Calc 13.3 Estimated GFR 12 POC Glucose 30 L* 105 Random Glucose 182 H Calcium 8.6 D Magnesium 2.4 Total Bilirubin 0.3 Direct Bilirubin 0.1 AST 19 ALT 5 Alkaline Phosphatase 59 Total Protein 6.5 Albumin 3.3 L Influenza Type A (PCR) NEGATIVE Influenza Type B (PCR) NEGATIVE RSV RNA Qual (PCR) NEGATIVE SARS-CoV-2 RNA (RT-PCR) POSITIVE A 05/09/23 05/09/23 15:42 17:32 MCV MCH MCHC RDW Plt Count MPV Immature Gran % (Auto) Neut % (Auto) Lymph % (Auto) [place] % (Auto) Eos % (Auto) Baso % (Auto) Lymph # (Auto) [place] # (Auto) Eos # (Auto) Baso # (Auto) Abs Immat Gran (auto) Absolute Neuts (auto) Absolute Nucleated RBC Nucleated RBC % (auto) PT 13.0 INR 1.1 APTT 30.7 Anion Gap Estim Creat Clear Calc Estimated GFR POC Glucose 48 L* Random Glucose Calcium Magnesium Total Bilirubin Direct Bilirubin AST ALT Alkaline Phosphatase Total Protein Albumin Influenza Type A (PCR) Influenza Type B (PCR) RSV RNA Qual (PCR) SARS-CoV-2 RNA (RT-PCR) Imaging Radiologist's Impressions: Impressions Head CT 05/09/23 13:18 IMPRESSION: No acute intracranial pathology. Results to be called by the PSA. This critical result was discussed with MILTON Burt, at 1:23 PM hours on 05/09/2023.. It was ascertained that the content and urgency of the report was understood at the time of direct communication. Assessment and Plan (1) Hypoglycemia: Status: Acute (2) Elevated troponin: Status: Acute Plan 77 year old white male with history of stage 5 CKD, type 2 diabetes mellitus for which he is on Glipizide here with 1. Hypoglycemia - secondary to Glipizide use CKD V - noted to be persistently hypoglycemic while in the ED despite receiving 25 gm of D50 - IV D5W,closely monitor blood sugars ,regular diet -left-sided weakness and slurred speech related to hypoglycemia CT head unremarkable all symptoms resolved. 2. Stage 5 CKD - stable - continue outpatient Nephrology follow up 3. Mild hyperkalemia will place on low-potassium diet follow BMP 4. Elevated troponin but flat likely due to kidney disease no chest pain, no shortness of breath, no tachy arrhythmias, EKG with left bundle branch block unchanged from previous EKG. DVT: SCD's CODE STATUS: Full code Admission for at least 2 midnights for management of Hypoglycemic in setting of Glipizide use in stage 5 CKD Quality Stroke Does the patient have a stroke diagnosis?: No VTE Prior VTE?: No VTE Risk Level:: Medical - moderate - high VTE Device Contraindication: N/A - Device Ordered VTE Drug Contraindication: Treatment Not Indicated
[2023-05-09] MEDS: Dextrose 5 % 1,000 ML 75 ML IVCONT (18:29)
--- NOTE | 2023-05-09 18:34 | PC.NURSE ---
Addendum entered by Demi Quijano RN 05/09/23 18:44: Dr. Pierce notified and aware of pt poc. Original Note: pt poc rechecked, 45. pt provided with pudding, orange juice, and IV fluids now running per mar. pt a&o, appears well, is speaking in full complete sentences. denies symptoms. rr even/unlabored. O2 99% on room air. pt offers no complaints guilherme. call lynn within reach. plan of care ongoing.
[2023-05-09 18:44] LABS: Glucose, Whole Blood 45 mg/dL (60-115)
[2023-05-09 20:20] VITALS: BP 126/81; PULSE 74; RESP 23; O2SAT 95
[2023-05-09 20:43] VITALS: TEMP 36.6
[2023-05-09 21:03] VITALS: BP 152/105; PULSE 82; RESP 20; TEMP 36.7; O2SAT 97
[2023-05-09 21:14] LABS: Glucose, Whole Blood 62 mg/dL (60-115)
[2023-05-09] MEDS: carvediloL 3.125 MG TABLET PO (21:39)
[2023-05-09] MEDS: 0.9 % Sodium Chloride Flush 3 ML SYRINGE IVFLUSH (21:41)
[2023-05-09 23:32] LABS: Glucose, Whole Blood 85 mg/dL (60-115)
[2023-05-09 23:32] LABS: Glucose, Whole Blood 78 mg/dL (60-115)
[2023-05-10 00:17] LABS: Glucose, Whole Blood 48 mg/dL (60-115)
[2023-05-10 00:53] LABS: Glucose, Whole Blood 52 mg/dL (60-115)
[2023-05-10] MEDS: Glucose Gel 15 GM GEL..GRAM. PO ×3 (01:00→08:14)
[2023-05-10 01:26] LABS: Glucose, Whole Blood 57 mg/dL (60-115)
[2023-05-10 01:47] LABS: Glucose, Whole Blood 82 mg/dL (60-115)
[2023-05-10 03:03] VITALS: BP 118/56; PULSE 63; RESP 18; TEMP 37.1; O2SAT 98
[2023-05-10 03:31] LABS: Glucose, Whole Blood 57 mg/dL (60-115)
--- NOTE | 2023-05-10 03:41 | PC.NURSE ---
Pt arrived to unit from ED via stretcher. D5 at 75 ml/hr infusing. frequent POC checks throughout the night, ranging 47-82. glucose gel and rechecks done per hypoglycemic policy. Pt denies any symptoms of hypoglycemia, A&O x 4
[2023-05-10 04:04] LABS: Glucose, Whole Blood 52 mg/dL (60-115)
[2023-05-10 04:25] LABS: Glucose, Whole Blood 74 mg/dL (60-115)
[2023-05-10 06:19] LABS: Glucose, Whole Blood 63 mg/dL (60-115)
[2023-05-10] MEDS: glucagon HCL 1 MG VIAL IVPUSH (06:43)
[2023-05-10 07:44] VITALS: BP 122/65; PULSE 65; RESP 17; TEMP 36.1; O2SAT 98
[2023-05-10 08:14] LABS: Glucose, Whole Blood 53 mg/dL (60-115)
[2023-05-10] MEDS: Dextrose 5 % 1,000 ML 80 ML IVCONT (08:18)
[2023-05-10 09:09] LABS: Glucose, Whole Blood 69 mg/dL (60-115)
[2023-05-10] MEDS: amLODIPine Besylate 5 MG TABLET PO (09:47)
[2023-05-10] MEDS: Aspirin Enteric Coated 81 MG TABLET.DR PO (09:47)
[2023-05-10] MEDS: carvediloL 3.125 MG TABLET PO ×2 (09:47→21:34)
--- NOTE | 2023-05-10 09:56 | MHC.CM.PN ---
IMM 05/10. Pt lives at home with his /HCP Sera. Pt is self-care. Pts will transport him home. HCP copy requested. PCP: Dr. Severo Estes
[2023-05-10 10:07] LABS: Anion Gap 20 (12-20); Blood Urea Nitrogen 86 mg/dL (9-16); Calcium 8.5 mg/dL (8.4-10.2); Carbon Dioxide 13 mmol/L (22-29); Chloride 109 mmol/L (96-108); Creatinine Clr Calc Pharmacy 13.3; Estimated Glomerular Filt Rate 12; Glucose Random 70 mg/dL (60-115); Sodium 137 mmol/L (135-145)
[2023-05-10 11:58] VITALS: BP 181/72; PULSE 67; RESP 18; TEMP 36.1; O2SAT 97
[2023-05-10 12:14] LABS: Glucose, Whole Blood 86 mg/dL (60-115)
--- NOTE | 2023-05-10 14:53 | P.PNIM_ITS ---
Subjective Subjective Date of Service: 05/10/23 Interval History: Feeling better this this morning tolerating diet no nausea, no vomiting, no abdominal pain or diarrhea, no lightheadedness, no dizziness no chest pain, no diaphoresis or shortness of breath. blood sugars continue to trend down in 50s, no acute overnight events Review of Systems All other system reviewed and negative. Physical Exam 2 Vital Signs: Vital Signs: Last Vital Signs Temp 97.0 F 05/10/23 11:58 Pulse 67 05/10/23 11:58 Resp 18 05/10/23 11:58 BP 181/72 H 05/10/23 11:58 Pulse Ox 97 05/10/23 11:58 O2 Del Method Room Air 05/10/23 11:58 BMI result Body Mass Index 28.1 Const: Other: General awake alert x 3, in no acute distress. HEENT PERRLA,EOMI Neck supple no JVD. CVS regular rate rhythm, Respiratory lungs clear to auscultation, no respiratory distress, no wheeze, no rhonchi. Gastrointestinal abdomen soft, non tender, bowel sounds audible, no rebound no rigidity Extremities no edema. Neuro nonfocal Skin no rash Psych appropriate affect Objective Data Active Medications Acetaminophen (Acetaminophen 325 Mg Tablet) 650 mg PO Q6H PRN PRN Reason: Pain, Mild (Pain Scale 1-3) Amlodipine Besylate (Amlodipine Besylate 5 Mg Tablet) 5 mg PO DAILY [facility]; Protocol Last Admin: 05/10/23 09:47 Dose: 5 mg Documented By: GLENYS Aspirin (Aspirin Enteric Coated 81 Mg Tablet.) 81 mg PO DAILY [facility] Last Admin: 05/10/23 09:47 Dose: 81 mg Documented By: GLENYS Benzonatate (Benzonatate 100 Mg Capsule) 100 mg PO TID PRN PRN Reason: Cough Carvedilol (Carvedilol 3.125 Mg Tablet) 3.125 mg PO BID [facility]; Protocol Last Admin: 05/10/23 09:47 Dose: 3.125 mg Documented By: GLENYS Dextrose (Dextrose 50 % 25 Gm/50 Ml Syringe) 25 gm IVPUSH Q15M PRN; Protocol PRN Reason: per Hypoglycemia Standing Ord. Glucose (Glucose Gel 15 Gm Gel..Gram.) 15 gm PO Q15M PRN; Protocol PRN Reason: per Hypoglycemia Standing Ord. Last Admin: 12/29/23 08:14 Dose: 15 gm Documented By: GLENYS Dextrose (D5w) 1,000 mls @ 80 mls/hr IVCONT .[id number] [facility] Last Infusion: 05/10/23 11:14 Dose: 80 mls/hr Documented By: GLENYS Insulin Human Lispro (Insulin Lispro 100 Unit/Ml 3 Ml Vial) 0 unit SUBCUT QIDACHS [facility]; Protocol Last Admin: 05/10/23 12:22 Dose: Not Given Documented By: GLENYS Non-Admin Reason: No Insulin Coverage Melatonin (Melatonin 3 Mg Tablet) 3 mg PO BEDTIME PRN PRN Reason: Insomnia Ondansetron HCl (Ondansetron Hcl 4 Mg/2 Ml Vial) 4 mg IVPUSH Q8H PRN PRN Reason: Nausea Sodium Chloride (0.9 % Sodium Chloride Flush 3 Ml Syringe) 3 ml IVFLUSH QSHIFT [facility] Last Admin: 05/10/23 14:40 Dose: Not Given Documented By: GLENYS Non-Admin Reason: IV Running Labs 05/09/23 14:17 05/10/23 09:05 Labs: Laboratory Results - last 24 hr 05/09/23 05/09/23 05/09/23 14:17 15:42 17:32 PT 13.0 INR 1.1 APTT 30.7 Anion Gap Estim Creat Clear Calc Estimated GFR POC Glucose 48 L* Random Glucose Calcium Influenza Type A (PCR) NEGATIVE Influenza Type B (PCR) NEGATIVE RSV RNA Qual (PCR) NEGATIVE SARS-CoV-2 RNA (RT-PCR) POSITIVE A 05/09/23 05/09/23 05/09/23 18:30 19:21 20:25 PT INR APTT Anion Gap Estim Creat Clear Calc Estimated GFR POC Glucose 45 L* 78 85 Random Glucose Calcium Influenza Type A (PCR) Influenza Type B (PCR) RSV RNA Qual (PCR) SARS-CoV-2 RNA (RT-PCR) 05/09/23 05/10/23 05/10/23 21:11 00:11 00:48 PT INR APTT Anion Gap Estim Creat Clear Calc Estimated GFR POC Glucose 62 48 L* 52 L* Random Glucose Calcium Influenza Type A (PCR) Influenza Type B (PCR) RSV RNA Qual (PCR) SARS-CoV-2 RNA (RT-PCR) 05/10/23 05/10/23 05/10/23 01:23 01:43 03:28 PT INR APTT Anion Gap Estim Creat Clear Calc Estimated GFR POC Glucose 57 L* 82 57 L* Random Glucose Calcium Influenza Type A (PCR) Influenza Type B (PCR) RSV RNA Qual (PCR) SARS-CoV-2 RNA (RT-PCR) 05/10/23 05/10/23 05/10/23 03:59 04:22 06:13 PT INR APTT Anion Gap Estim Creat Clear Calc Estimated GFR POC Glucose 52 L* 74 63 Random Glucose Calcium Influenza Type A (PCR) Influenza Type B (PCR) RSV RNA Qual (PCR) SARS-CoV-2 RNA (RT-PCR) 05/10/23 05/10/23 05/10/23 08:06 09:05 12:03 PT INR APTT Anion Gap 20 Estim Creat Clear Calc 13.3 Estimated GFR 12 POC Glucose 53 L* 69 86 Random Glucose 70 Calcium 8.5 Influenza Type A (PCR) Influenza Type B (PCR) RSV RNA Qual (PCR) SARS-CoV-2 RNA (RT-PCR) Assessment and Plan (1) Elevated troponin: Status: Acute (2) Hypoglycemia: Status: Acute (3) Weakness: Status: Acute Plan 77 year old white male with history of stage 5 CKD, type 2 diabetes mellitus for which he is on Glipizide here with 1. Hypoglycemia - secondary to Glipizide use with and lying CKD V - noted to be persistently hypoglycemic will continue IV D5W,closely monitor blood sugars ,regular diet -left-sided weakness and slurred speech related to hypoglycemia CT head unremarkable all symptoms resolved. will dc glipizide, informed at bedside 2. Stage 5 CKD with metabolic acidosis - stable - continue outpatient Nephrology follow up, will add soda bicarb 3. Mild hyperkalemia on low-potassium diet, potassium normalized follow BMP 4. Elevated troponin but flat likely due to kidney disease no chest pain, no shortness of breath, no tachy arrhythmias, EKG with left bundle branch block unchanged from previous EKG. DVT: SCD's CODE STATUS: Full code Will need continued inpatient hospitalization for management of Hypoglycemic in setting of Glipizide use in stage 5 CKD Quality Stroke Does the patient have a stroke diagnosis?: No VTE Prior VTE?: No VTE Risk Level:: Medical - moderate - high VTE Device Contraindication: N/A - Device Ordered VTE Drug Contraindication: Treatment Not Indicated
[2023-05-10 16:00] VITALS: BP 143/74; PULSE 72; RESP 16; TEMP 36.4; O2SAT 97
[2023-05-10 17:13] LABS: Glucose, Whole Blood 90 mg/dL (60-115)
[2023-05-10 19:05] VITALS: BP 165/90; PULSE 71; RESP 19; TEMP 36.8; O2SAT 96
[2023-05-10 20:23] LABS: Glucose, Whole Blood 102 mg/dL (60-115)
[2023-05-10] MEDS: Sodium Bicarbonate 650 MG TABLET PO (21:34)
[2023-05-10 23:57] LABS: Glucose, Whole Blood 113 mg/dL (60-115)
[2023-05-11 03:28] VITALS: BP 138/66; PULSE 62; RESP 16; TEMP 36.2; O2SAT 99
[2023-05-11 03:36] LABS: Glucose, Whole Blood 85 mg/dL (60-115)
[2023-05-11] MEDS: Dextrose 5 % 1,000 ML 80 ML IVCONT (05:47)
[2023-05-11 07:29] LABS: Glucose, Whole Blood 73 mg/dL (60-115)
[2023-05-11 08:00] VITALS: BP 120/68; PULSE 68; RESP 20; TEMP 36.6; O2SAT 98
--- NOTE | 2023-05-11 08:01 | MHC.CM.PN ---
Patient has been medically cleared for dc to home today, self care. IMM addressed yesterday.
[2023-05-11] MEDS: amLODIPine Besylate 5 MG TABLET PO (08:39)
[2023-05-11] MEDS: Aspirin Enteric Coated 81 MG TABLET.DR PO (08:39)
[2023-05-11] MEDS: Sodium Bicarbonate 650 MG TABLET PO (08:39)
[2023-05-11] MEDS: Benzonatate 100 MG CAPSULE PO (08:39)
[2023-05-11] MEDS: carvediloL 3.125 MG TABLET PO (08:39)
[2023-05-11 11:06] LABS: Glucose, Whole Blood 77 mg/dL (60-115)
--- NOTE | 2023-05-11 11:17 | P.DS_ITS ---
DS: Providers Provider Date of Service: 05/11/23 Date of admission: 05/09/23 18:06 Primary care physician: Severo Estes MD DS: Diagnosis Discharge Diagnosis (1) Elevated troponin: Status: Acute (2) Hypoglycemia: Status: Acute (3) Weakness: Status: Acute DS: Summary Hospital Course Hospital Course: History of presenting illness: Date of Service: 05/09/23 Chief Complaint: Left-sided weakness 77-year-old gentleman with past medical history significant for advanced a kidney disease, bradycardia, anemia, recent admission to [facility] with hypoglycemia presented to [facility] due to left-sided weakness associated with tiredness, slurred speech when he woke up this a.m. last known well at 23:00 , as per family patient has loss of appetite, malaise, EMS noted blood sugar in 50s, blood sugar noted to be in 30s on arrival to the emergency room, CT brain showed no acute abnormality patient was supposed to discontinue glipizide but he admitted that he has been taking the medication, since he was not aware to stop the medication, in emergency room patient treated with D50, blood sugar improved but then drifted back down to 48, patient also noted to have elevated troponin, he denies chest pain, no shortness of breath no lightheadedness ,no dizziness, no palpitations, patient is being admitted to [facility] due to persistent hypoglycemia. Hospital course: 77 year old white male with history of stage 5 CKD, type 2 diabetes mellitus, was recently discharged from [facility] on 04/18 after being treated for hypoglycemia and bradycardia patient was recommended to stop glipizide but however patient continue to take glipizide by accident and presented to [facility] due to left-sided weakness, slurred speech and was diagnosed to have hypoglycemia blood sugars in 30s on arrival to emergency room, CT brain showed no stroke patient treated with D50 but blood sugars remain low therefore admitted to medical floor on IV D5W, patient blood sugars improved currently between 50-100 patient asymptomatic, he has been strongly recommended to stop using glipizide, family also made aware to stop oral hypoglycemics patient recent hemoglobin A1c was 4.7. He was noted to have elevated troponin but flat likely due to kidney disease patient had no chest pain, no shortness of breath EKG with chronic left bundle branch block recommend to continue home medications. In regard to Stage 5 CKD patient noted to have metabolic acidosis therefore started on soda bicarb 650 mg twice Daily, he had might hyperkalemia that resolved with fluids and low-potassium diet Time Attestation Discharge coordination time: Greater than 30 minutes Quality: Safe Use of Opioids Does Pt have an Active Cancer Diagnosis on the Problem List?: No Quality: Stroke Does the patient have a stroke diagnosis?: No Physical Exam Vital Signs: Vital Signs: Last Vital Signs Temp 97.9 F 05/11/23 08:00 Pulse 68 05/11/23 08:00 Resp 20 05/11/23 08:00 BP 120/68 05/11/23 08:00 Pulse Ox 98 05/11/23 08:00 O2 Del Method Room Air 05/11/23 08:00 BMI result Body Mass Index 28.1 Const: Other: General awake alert x 3, in no acute distress. HEENT PERRLA,EOMI Neck supple no JVD. CVS regular rate rhythm, Respiratory lungs clear to auscultation, no respiratory distress, no wheeze, no rhonchi. Gastrointestinal abdomen soft, non tender, bowel sounds audible, no rebound no rigidity Extremities no edema. Neuro nonfocal Skin no rash Psych appropriate affect DS: Data Data Completed and Pending Labs on day of discharge: Laboratory Results - last 24 hr 05/10/23 05/10/23 05/10/23 12:03 16:45 20:06 POC Glucose 86 90 102 05/10/23 05/11/23 05/11/23 23:53 03:32 07:25 POC Glucose 113 85 73 05/11/23 11:01 POC Glucose 77 Discharge Plan Discharge Anticipated Discharge Date/Time: 05/11/23 07:50 Patient Disposition: Home, Self-Care Discharge Diagnosis: Symptomatic hypoglycemia Referrals: Severo Estes MD [Primary Care Provider] - 1 Week Discharge Medications: New sodium bicarbonate 650 mg Tablet 650 mg PO BID Qty: 60 0RF Continued carvedilol 3.125 mg tablet 3.125 mg PO BID amlodipine [Norvasc] 5 mg tablet 5 mg PO DAILY Qty: 30 0RF aspirin [Adult Low Dose Aspirin] 81 mg tablet,delayed release (DR/EC) 81 mg PO DAILY Discontinued (DME) blood-glucose meter [NetTalonuch Ultra2 Meter] Misc See Rx Instructions .Route Qty: 1 0RF Rx Instructions: check once per day (DME) lancets [OneTouch UltraSoft 2 Lancet] 30 gauge misc See Rx Instructions .Route Qty: 100 4RF Rx Instructions: check once per day (DME) OneTouch Ultra Test Strip See Rx Instructions .Route Qty: 100 4RF Rx Instructions: check once per day Discharge Orders: Discharge Order (Routine); Ordered 05/11/23 Ordered By: Talya Pierce Diet: Advance to usual diet Activity on Discharge: As tolerated Stand Alone Forms: Patient Portal Discharge page Care Plan Goals: Hypoglycemia resolved DO NOT TAKE GLIPIZIDE Take soda bicarb 1 tablet twice daily Health Concerns: Continue all home medications as before. Plan of Treatment: Follow-up with primary care physician and Nephrology call for appointment Assessment: As above
== END 2023-05-11 14:09 | disposition home or self-care (01) | DRG 637 ==
LOC: HO.ED 15:32 → HO.EDOVER 18:28 → HO.S3 19:12 → HO.EDOVER 19:25 → HO.IMC 20:00
PROVIDERS: Admitting Provider Hospitalist; Emergency Provider Emergency Medicine; PCP Internal Medicine; Visit Provider Hospitalist
DX: E11.649 Type 2 diabetes mellitus with hypoglycemia without coma (principal); U07.1 COVID-19; E87.5 Hyperkalemia; N18.5 Chronic kidney disease, stage 5; E11.22 Type 2 diabetes mellitus with diabetic chronic kidney disease; T38.3X5A Adverse effect of insulin and oral hypoglycemic [antidiabetic] drugs, initial encounter; Z91.148 Patient's other noncompliance with medication regimen for other reason; I25.10 Atherosclerotic heart disease of native coronary artery without angina pectoris; Z95.5 Presence of coronary angioplasty implant and graft; Z87.891 Personal history of nicotine dependence; Z79.82 Long term (current) use of aspirin; Z79.899 Other long term (current) drug therapy
CPT/HCPCS: 0241U; 36415; 70450; 80048; 80076; 82947; 83735; 84484; 85025; 85610; 85730; 93005; 99222; 99285; J1610

== ENCOUNTER → 2023-05-09 13:11 | Outpatient (BNV) | payer MEDICARE, SELFPAY | PROVIDERS: Emergency Provider Emergency Medicine; PCP Internal Medicine; Visit Provider Internal Medicine | DX: R94.31 Abnormal electrocardiogram [ECG] [EKG] (principal); I44.7 Left bundle-branch block, unspecified | CPT/HCPCS: 93010 ==

== ENCOUNTER → 2023-05-09 18:06 | Outpatient (BNV) | payer MEDICARE, SELFPAY | PROVIDERS: Admitting Provider Hospitalist; Emergency Provider Emergency Medicine; PCP Internal Medicine; Visit Provider Hospitalist | DX: R79.89 Other specified abnormal findings of blood chemistry (principal); E11.649 Type 2 diabetes mellitus with hypoglycemia without coma; N18.5 Chronic kidney disease, stage 5; Z79.84 Long term (current) use of oral hypoglycemic drugs | CPT/HCPCS: 99223; 99232; 99233; 99239 ==

== ENCOUNTER 2023-05-14 13:53 | Outpatient (AMB) | payer MEDICARE, SELFPAY ==
[2023-05-14 13:57] VITALS: PULSE 56; O2SAT 98; BMI 28.1
--- NOTE | 2023-05-14 13:57 | MHC.OFFVIS ---
Intake Vital Signs 05/14/23 13:57 Height 5 ft 6 in Weight 174 lb BMI 28.1 Pulse 56 Pulse Source Pulse Oximeter Pulse Oximetry (%) 98 Oxygen Delivery Method Room Air Intake Visit Reasons: 2 wk post op L UE fistula & fistulagram 04/29/23 Intake Note: Pt presents to the office today for a 2 week post op L UE fistula and fistulagram. Pt states he is not felling good. Pt states he has fatigue, pain in his chest occasionally, and weak. Allergies No Known Allergies Allergy (Mild, Verified 05/14/23 13:58) NONE HPI 2 wk post op L UE fistula & fistulagram 04/29/23 HPI Details Very pleasant 77-year-old gentleman presents for follow-up evaluation regarding left upper extremity fistula. He had undergone a fistulogram with balloon assisted maturation. Appears to be doing relatively well. He actually has a fairly reasonable thrill throughout the proximal portion of this fistula. He now presents for routine postprocedure follow-up. FORMERLY [facility], [facility]1983 Medical History Fistula (03/04/23) CKD (chronic kidney disease) stage 5, GFR less than 15 ml/min Atrioventricular block, Mobitz type 1, Wenckebach CAD (coronary artery disease) Diabetes mellitus with renal manifestation Screening for prostate cancer Screening for colon cancer Diabetes mellitus with coincident hypertension Diabetes mellitus Surgical History H/O wrist surgery History of surgery History of colonoscopy History of cataract surgery History of coronary artery stent placement History of drainage of abscess Family History Father Lung cancer Mother Cancer Social History Household Members: Spouse Housing: House Are you a primary home health aide caregiver to a significant other at home: No Do you presently have visiting nurse or other home services: No Alcohol intake: never Patient Tobacco Use Status: Former Tobacco user Quit Date: 40 years Tobacco use type: Cigarette e-Cigarette/Vaping Use: Never Used Second Hand Smoke Exposure: No service: No Current occupational status: retired Cognitive needs: No Hearing needs: No Vision needs: Yes (glasses) Review of Systems Const All systems reviewed & are unremarkable except as noted in HPI and below Reports no additional complaints ENT Reports Normal hearing present Card Denies chest pain, Denies chest pain at rest, Denies chest pain with activity and Denies pedal edema Resp Denies cough GI Denies abdominal pain Musc Denies abnormal gait, Denies muscle cramps and Denies radiating pain into limb Skin/Breast Denies skin ulcer and Denies wounds Neuro Reports Normal hearing present and Denies abnormal gait Psych Reports no additional complaints Physical Exam Vital Signs: Last Vital Signs Pulse 56 05/14/23 13:57 Pulse Ox 98 05/14/23 13:57 Oxygen Delivery Method Room Air 05/14/23 13:57 BMI result Body Mass Index 28.1 Const General: cooperative, healthy appearing and comfortable Orientation/consciousness: oriented to person, oriented to place and oriented to time HEENT Head: Yes normal to inspection Neck Neck: Yes normal visual inspection Carotids: no bruits Chest Chest palpation & inspection: normal inspection of the chest Resp Effort & Inspection: normal respiratory effort and able to speak in complete sentences Auscultation: clear to auscultation bilaterally, no crackles, no rales, no rhonchi and no wheezes Cardio Other: Excellent thrill and bruit of left upper extremity of cemino fistula Rate: regular rate Rhythm: regular rhythm Heart sounds: S1 normal heart sound present and S2 normal heart sound present Bruits: no carotid bruits Peripheral pulses: Peripheral pulses 2+ throughout GI Inspection: Yes normal to inspection Skin Wounds: no wounds Hair: normal Neuro General: oriented to person, oriented to place and oriented to time Cranial nerves: Yes CN's II-XII intact bilaterally and Yes Normal hearing present Cognition (Neuro): normal cognition Motor exam (neuro): 5/5 motor strength present throughout Extrem Other: venous exam: No significant superficial varicosities or spider telangiectasias, minimal edema General: No clubbing, No cyanosis and No edema Psych Appearance: grossly normal Mental Status: mental status grossly normal Speech and movement: Normal speech and movement present Assessment & Plan Assessment & Plan (1) Chronic renal insufficiency: Code(s): N18.9 - Chronic kidney disease, unspecified Qualifiers: Chronic kidney disease stage: stage 5 Qualified Code(s): N18.5 - Chronic kidney disease, stage 5 Plan: In short the patient is approaching stage 5 CKD. His GFR is hanging out at around 12. Fistula appears to be doing relatively well. I do appreciate a good thrill and bruit. I do think it should be stable to be used at the time of dialysis. May be slightly small in caliber but I do think it is amenable to use. He will follow up with us on an as-needed basis. Thank you for allowing us to assist in his care. If there are any questions or concerns please do not hesitate to contact us. Coding Level of Care Code Est Pt Level 3 (72910) Diagnoses Chronic renal impairment, stage 5 N18.5 Chronic kidney disease stage: stage 5
== END 2023-05-14 14:15 | disposition home or self-care (01) ==
PROVIDERS: PCP Internal Medicine; Visit Provider Surgery Vascular Surgery
DX: N18.5 Chronic kidney disease, stage 5 (principal)
CPT/HCPCS: 99213

== ENCOUNTER → 2023-05-14 13:53 | Outpatient (BNVA) | payer MEDICARE, SELFPAY | PROVIDERS: PCP Internal Medicine; Visit Provider Surgery Vascular Surgery | DX: N18.5 Chronic kidney disease, stage 5 (principal) | CPT/HCPCS: 99212 ==

== ENCOUNTER 2023-05-16 10:54 | Outpatient (AMB) | payer MEDICARE, SELFPAY ==
[2023-05-16 10:59] VITALS: BP 120/60; BMI 29.2
--- NOTE | 2023-05-16 10:59 | HO.NEPHOV ---
HPI HPI Comments History of Present Illness Details Hakeem is a elderly man with longstanding hypertension and advanced CKD. He is approaching end stage renal disease. He has an AV fistula in preparation for hemodialysis in the near future. No nausea vomiting. No shortness of breath. No urinary symptoms. About a week ago he was admitted for hypoglycemia. Medications are being readjusted. Today has no new complaints FOR[facility]LY [facility] Medical History (Updated 05/16/23 @ 11:38 by Que Gómez MD) CKD (chronic kidney disease) stage 5, GFR less than 15 ml/min Fistula (03/04/23) Atrioventricular block, Mobitz type 1, Wenckebach CAD (coronary artery disease) Diabetes mellitus with renal manifestation Screening for prostate cancer Screening for colon cancer Diabetes mellitus with coincident hypertension Diabetes mellitus Surgical History H/O wrist surgery History of surgery History of colonoscopy History of cataract surgery History of coronary artery stent placement History of drainage of abscess Family History Father Lung cancer Mother Cancer Social History Household Members: Spouse Housing: House Are you a primary attending ambulatory care to a significant other at home: No Do you presently have visiting nurse or other home services: No Alcohol intake: never Patient Tobacco Use Status: Former Tobacco user Quit Date: 40 years Tobacco use type: Cigarette e-Cigarette/Vaping Use: Never Used Second Hand Smoke Exposure: No service: No Current occupational status: retired Cognitive needs: No Hearing needs: No Vision needs: Yes (glasses) Vital Signs 05/16/23 10:59 Height 5 ft 6 in Weight 181 lb BMI 29.2 BP 120/60 Blood Pressure Location Rt brachial Position Sitting Physical Exam Vital Signs: Last Vital Signs BP 120/60 05/16/23 10:59 BMI result Body Mass Index 29.2 Const General: comfortable Nutritional Appearance: well nourished Orientation/consciousness: patient oriented x3 HEENT Head: No normal to inspection Mouth: moist mucous membranes Neck Neck: Yes supple and Yes no JVD Resp Auscultation: clear to auscultation bilaterally, no rales and rub present Cardio Jugular venous distension: no JVD Palpation: no palpable S3 and no palpable S4 Heart sounds: no rubs GI Palpation (GI): Soft to palpation and nontender Percussion: No Fluid wave present General: Yes no CVA tenderness Back/Spine/Pelvis Back: no CVA tenderness Skin General skin exam: no rashes or lesions noted Neuro General: patient oriented x3 Extrem General: Yes no pedal edema and No clubbing Assessment & Plan Assessment & Plan (1) Chronic renal insufficiency: Code(s): N18.9 - Chronic kidney disease, unspecified Qualifiers: Chronic kidney disease stage: stage 5 Qualified Code(s): N18.5 - Chronic kidney disease, stage 5 Plan: CKD 5. Renal function has been relatively stable. No signs or symptoms of uremia. Volume status acceptable. No absolute indication to initiate hemodialysis yet. He has a AV fistula in left forearm. 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 I will check iron stores and if adequate I will start him on erythropoietin replacement therapy. (3) Metabolic acidosis: Code(s): E87.20 - Acidosis, unspecified Plan: Due to CKD. Keep on oral sodium bicarbonate. Goal is met in total CO2 more than 18 millimoles Orders: Orders IRON PROFILE 3 Weeks D64.9 - Anemia, unspecified, N18.9 - Chronic kidney disease, unspecified Blood Urea Nitrogen 3 Weeks D64.9 - Anemia, unspecified, N18.9 - Chronic kidney disease, unspecified Creatinine 3 Weeks D64.9 - Anemia, unspecified, N18.9 - Chronic kidney disease, unspecified Calcium 3 Weeks D64.9 - Anemia, unspecified, N18.9 - Chronic kidney disease, unspecified Ferritin 3 Weeks D64.9 - Anemia, unspecified, N18.9 - Chronic kidney disease, unspecified Electrolytes 3 Weeks D64.9 - Anemia, unspecified, N18.9 - Chronic kidney disease, unspecified Parathyroid Hormone Intact 3 Weeks D64.9 - Anemia, unspecified, N18.9 - Chronic kidney disease, unspecified Complete Blood Count no Diff 3 Weeks D64.9 - Anemia, unspecified, N18.9 - Chronic kidney disease, unspecified Coding Level of Care Code Est Pt Level 4 (92573) Diagnoses Chronic renal impairment, stage 5 N18.5 Chronic kidney disease stage: stage 5 Anemia D64.9 Metabolic acidosis E87.20 Results Reviewed Nephrology Results: Hgb 8.8 g/dl (14.0-18.0) L 05/09/23 WBC 7.7 X10*3/uL (4.8-10.8) 05/09/23 Plt Count 164 X10*3/uL (160-400) 05/09/23 Sodium 137 mmol/L (135-145) 05/10/23 Potassium 5.0 mmol/L (3.3-5.1) 05/10/23 Chloride 109 mmol/L (96-108) H 05/10/23 Carbon Dioxide 13 mmol/L (22-29) L 05/10/23 BUN 86 mg/dL (9-16) H 05/10/23 Creatinine 4.64 mg/dL (0.5-1.4) H* 05/10/23 Calcium 8.5 mg/dL (8.4-10.2) 05/10/23 Urine Protein 100 (2+) mg/dL (Neg-Trace) H 04/17/23
== END 2023-05-16 11:13 | disposition home or self-care (01) ==
PROVIDERS: PCP Internal Medicine; Visit Provider Internal Medicine Hypertension Specialist
DX: N18.5 Chronic kidney disease, stage 5 (principal); D64.9 Anemia, unspecified; E87.20 Acidosis, unspecified
CPT/HCPCS: 99214

== ENCOUNTER → 2023-05-16 10:54 | Outpatient (BNVA) | payer MEDICARE, SELFPAY | PROVIDERS: PCP Internal Medicine; Visit Provider Internal Medicine Hypertension Specialist | DX: N18.5 Chronic kidney disease, stage 5 (principal); D64.9 Anemia, unspecified; E87.20 Acidosis, unspecified | CPT/HCPCS: 99212 ==

== ENCOUNTER 2023-05-17 09:35 | Outpatient (AMB) | payer MEDICARE, SELFPAY ==
--- NOTE | 2023-05-17 09:37 | MHC.PC.OV ---
Vital Signs 05/17/23 09:40 Height 5 ft 6 in Intake Visit Reasons: 3mth f/u Intake Note: Patient is here to follow up on HTN, DM, CKD. Sas Statistical Programmer Required: No Senior Backup Administrator: Not Required per policy Accompanied by: Self / Same As Patient Allergies No Known Allergies Allergy (Mild, Verified 05/17/23 09:39) NONE Medication List - Last Reconciled 05/17/23 by Severo Estes MD amlodipine (Norvasc) 5 mg PO DAILY aspirin (Adult Low Dose Aspirin) 81 mg PO DAILY carvedilol 3.125 mg PO BID sodium bicarbonate 650 mg PO BID Tobacco use date assessed: 05/17/23 Fall risk assessment: 2 + Falls in past year Last assessed Fall Risk: 05/17/23 Dental Screening Dental Screen Date: 05/17/23 Did you have a dental visit in the last 12 months?: No Did you have a dental problem in the last 6 months where you did not have access to dental care?: No Was dental information given to patient?: No HPI 3mth f/u HPI Details discharged with covid last week; still weak [facility] Medical History (Updated 05/17/23 @ 10:25 by Severo Estes MD) CKD (chronic kidney disease) stage 5, GFR less than 15 ml/min [place] (03/04/23) Atrioventricular block, Mobitz type 1, Wenckebach CAD (coronary artery disease) Diabetes mellitus with renal manifestation Screening for prostate cancer Screening for colon cancer Diabetes mellitus with coincident hypertension Diabetes mellitus Surgical History H/O wrist surgery History of surgery History of colonoscopy History of cataract surgery History of coronary artery stent placement History of drainage of abscess Family History Father Lung cancer Mother Cancer Social History Household Members: Spouse Housing: House Are you a primary child care lead teacher to a significant other at home: No Do you presently have visiting nurse or other home services: No Alcohol intake: never Patient Tobacco Use Status: Former Tobacco user Quit Date: 40 years Tobacco use type: Cigarette e-Cigarette/Vaping Use: Never Used Second Hand Smoke Exposure: No service: No Current occupational status: retired Cognitive needs: No Hearing needs: No Vision needs: Yes (glasses) Questionnaire PHQ-9 Over the last 2 weeks, how often have you been bothered by any of the following problems? 1. Little interest or pleasure in doing things: not at all 2. Feeling down, depressed, or hopeless: not at all 3. Trouble falling or staying asleep, or sleeping too much: not at all 4. Feeling tired or having little energy: not at all 5. Poor appetite or overeating: more than half the days 6. Feeling bad about yourself - or that you are a failure or have let yourself or your family down: not at all 7. Trouble concentrating on things, such as reading the newspaper or watching television: not at all 8. Moving or speaking so slowly that other people could have noticed. Or the opposite - being so fidgety or restless that you have been moving around a lot more than usual: not at all 9. Thoughts that you would be better off or of hurting yourself in some way: not at all Total score: 2 Depression Screening Interpretation: Negative Depression Screening Done: Yes 64478 - PHQ-9 Billing: Yes Source: Developed by Drs. Jerald Perkins, Tracie Oconnor, Jenaro Horn and colleagues, with an educational jennifer from [employer]. Thrive Questionnaire Date Thrive assessed: 05/17/23 I am a: Patient What is your living situation today?: I have a steady place to live Within the past 12 months, did the food you bought not last and you didn't have the money to get more?: Never true Within the past 12 months, did you worry whether your food would run out before you got money to buy more?: Never true Do you have trouble paying for medicines?: No Do you have trouble getting transportation to medical appointments?: No Do you have trouble paying your heating and electricity bill?: No Do you have trouble taking care of your child, family member or friend?: No Do you have trouble with day-to-day activities such as bathing, preparing meals, shopping, managing finances, etc.?: No Are you currently unemployed and looking for a job?: No Are you interested in more education?: No Currently or been in a relationship where the following occur: no concerns reported AUDIT C Alcohol Use Questionnaire (AUDIT-C) 1. How often do you have a drink containing alcohol?: Monthly or less 2. How many drinks containing alcohol do you have on a typical day when you are drinking?: 1 or 2 Total Score: 1 ROBERTO CARLOS-7 AMB Questionnaire ROBERTO CARLOS-7 Date ROBERTO CARLOS - 7 assessed: 05/17/23 Feeling nervous, anxious, or on edge: 0 = Not at all Not being able to stop or control worryin = Not at all Worrying too much about different things: 0 = Not at all Trouble relaxin = Not at all Being so restless that it is hard to sit still: 0 = Not at all Becoming easily annoyed or irritable: 0 = Not at all Feeling afraid as if something awful might happen: 0 = Not at all Total ROBERTO CARLOS-7 score (0-4 normal; 5-9 mild; 10-14 moderate; 15-21 severe): 0 Source: Developed by Drs. Jerald Perkins, Tracie Oconnor, Jenaro Horn and colleagues, with an educational jennifer from [employer]. ROBERTO CARLOS-7 Assessment Billing ROBERTO CARLOS-7 Assessment Tool: ROBERTO CARLOS-7 Assessment 93643 Review of Systems Const Denies chills, Denies headache(s) and Denies weight loss ENT Denies headache(s) Card Denies chest pain, Denies syncope, Denies irregular heart rhythm and Denies dyspnea Resp Denies chest congestion, Denies cough and Denies dyspnea GI Denies abdominal pain, Denies change in stool character, Denies nausea and Denies vomiting Musc Denies deformity and Denies joint swelling Neuro Denies syncope and Denies headache(s) Physical exam (Primary Care) Tobacco/Smoking Status: Tobacco use Status Tobacco use date assessed 05/17/23 05/17/23 09:40 Patient Tobacco Use Status Former Tobacco user 05/17/23 09:40 Tobacco use type Cigarette 05/17/23 09:40 e-Cigarette/Vaping Use Never Used 05/17/23 09:40 PHQ-9: PHQ-9 Score PHQ-9: Total score 2 05/17/23 09:52 Depression Screening Interpretation: Negative Thrive Assessment: Date of Thrive Assessment Date Thrive assessed 05/17/23 05/17/23 09:40 Currently or been in a relationship where the following occur: no concerns reported Telehealth Telehealth Location of provider rendering services: practice address Location of patient: address on file Patient Identification confirmed using: Name, : Yes Telehealth method: voice only Patient verbally consented to treatment: Yes Patient verbally consented to billing insurance company: Yes Patient informed of any privacy concerns related to visit: Yes Minutes spent on Phone/Video with Pt.: 15 (telephone) Assessment and Plan Assessment & Plan (1) COVID-19: Code(s): U07.1 - COVID-19 Plan: cont supportive care Coding Level of Care Code Tele Est Pt Level 3 (05241) Diagnoses COVID-19 U07.1 Additional Codes ROBERTO CARLOS-7 Assessment Billing - ROBERTO CARLOS-7 Assessment Tool: ROBERTO CARLOS-7 Assessment 23234 ([id number])
== END 2023-05-17 11:03 | disposition home or self-care (01) ==
PROVIDERS: PCP Internal Medicine; Visit Provider Internal Medicine
DX: U07.1 COVID-19 (principal)
CPT/HCPCS: G2252